=== PATIENT | female | born 1980 | race Caucasian/White ===

== ENCOUNTER 2016-09-02 10:23 | Outpatient (CLI) | payer MEDICAID, OTHER | END 2016-09-02 10:24 | disposition home or self-care (01) | DX: J06.9 Acute upper respiratory infection, unspecified (principal) ==

== ENCOUNTER 2016-10-08 00:19 | Emergency (ER) | payer OTHER ==
[2016-10-08] MEDS ORDERED: HYDROmorphone 1 MG/ML SYRINGE IM STA ×2 (02:07→02:56)
[2016-10-08] MEDS ORDERED: PROMETHAZINE 25 MG/1 ML VIAL IM STA (02:08)
[2016-10-08] MEDS ORDERED: HYDROmorphone 1 MG/ML SYRINGE ONE ×2 (02:10→03:07)
[2016-10-08] MEDS ORDERED: PROMETHAZINE 25 MG/1 ML VIAL ONE (02:10)
[2016-10-08] MEDS ORDERED: KETOROLAC 60 MG/2 ML VIAL IM STA (02:56)
[2016-10-08] MEDS ORDERED: KETOROLAC 60 MG/2 ML VIAL ONE (03:07)
[2016-10-08] MEDS ORDERED: oxyCODONE/ACET 5/325 Prepack 4 PO STA (03:30)
[2016-10-08] MEDS ORDERED: oxyCODONE/ACET 5/325 Prepack 4 PO ONE (03:35)
== END 2016-10-08 03:40 | disposition home or self-care (01) ==
DX: N20.2 Calculus of kidney with calculus of ureter (principal); Z87.442 Personal history of urinary calculi
CPT/HCPCS: 74176; 81001; 96372; 99284; J1170

== ENCOUNTER 2017-02-26 14:52 | Outpatient (CLI) | payer OTHER ==
[2017-02-26 15:45] LABS: BASOPHILS # (AUTO) 0.1 10^3/uL (0.0-0.1); BASOPHILS % (AUTO) 0.7 %; EOSINOPHILS # (AUTO) 0.2 10^3/uL (0.0-0.7); EOSINOPHILS % (AUTO) 2.7 %; HGB - HEMOGLOBIN 13.3 g/dL (12.0-16.0); LYMPHOCYTES # (AUTO) 3.3 10^3/uL (1.5-3.5); LYMPHOCYTES % (AUTO) 45.1 %; MEAN CORPUSCULAR HEMOGLOBIN 28.5 pg (27.0-31.0); MEAN CORPUSCULAR HGB CONC 34.1 g/dL (32.0-36.0); MEAN CORPUSCULAR VOLUME 83.5 fL (81.0-99.0); MONOCYTES # (AUTO) 0.6 10^3/uL (0.0-1.0); MONOCYTES % (AUTO) 7.8 %; NEUTROPHILS # (AUTO) 3.2 10^3/uL (1.5-6.6); NEUTROPHILS % (AUTO) 43.7 %; RED BLOOD COUNT 4.67 10^6/uL (4.20-5.40); RED CELL DISTRIBUTION WIDTH 13.8 % (12.0-15.0); UNCORRECTED WHITE BLOOD COUNT 7.3 x10^3/uL; WHITE BLOOD COUNT 7.3 x10^3/uL (4.8-10.8)
[2017-02-26 15:48] LABS: ALBUMIN/GLOBULIN RATIO 1.1 (1.0-2.2); BILIRUBIN,TOTAL 0.6 mg/dL (0.2-1.0); CALCIUM 8.8 mg/dL (8.5-10.3); CREATININE 0.8 mg/dL (0.4-1.0); TOTAL PROTEIN 7.3 g/dL (6.7-8.2)
--- NOTE | 2017-02-26 17:16 | XRAY Report ---
TWO VIEW CHEST: 02/26/2017 CLINICAL INDICATION: Shortness of breath. COMPARISON: CT of 06/09/2015. FINDINGS: Frontal and lateral views of the chest demonstrate a normal cardiac silhouette. The lungs are clear. No effusion or pneumothorax is present. IMPRESSION: NO EVIDENCE OF ACUTE CARDIOPULMONARY DISEASE. JOB #: [id number] EXT JOB #:[id number]
== END 2017-02-26 14:53 | disposition home or self-care (01) ==
LOC: DI 14:52
PROVIDERS: ATTEND Physician Assistant Medical
DX: R06.02 Shortness of breath (principal)
CPT/HCPCS: 36415; 71020; 80053; 85025; 85379; 85651

== ENCOUNTER 2017-03-04 12:00 | Emergency (ER) | payer OTHER ==
[2017-03-04 13:14] LABS: BILIRUBIN,URINE NEGATIVE (NEGATIVE); UA w/ MICROSCOPIC CHARGE YES; WBC,URINE 0-3 /HPF (0-5)
[2017-03-04 13:15] LABS: UR CULTURE IF IND NOT INDICATED
[2017-03-04] MEDS ORDERED: HYDROmorphone 1 MG/ML SYRINGE IVP STA (15:21)
[2017-03-04] MEDS ORDERED: ONDANSETRON 4 MG/2 ML VIAL IVP STA (15:21)
[2017-03-04] MEDS ORDERED: KETOROLAC 60 MG/2 ML VIAL IVP STA (15:21)
--- NOTE | 2017-03-04 15:23 | ED Physician Documentation ---
PD HPI ABD PAIN - Stated complaint Stated Complaint: L SIDE PX - Chief complaint Chief Complaint: Abd Pain - History obtained from History obtained from: Patient - History of Present Illness Timing - onset: How many hours ago (4) Timing - details: Abrupt onset Pain level max: 10 Pain level now: 8 Quality: Aching, Pain Location: Other (L flank) Improved by: Other (nothing) Worsened by: Other (nothing) Associated symptoms: Nausea. No: Fever, Hematemesis, Diarrhea, Constipation Similar symptoms before: Diagnosis (ureteral stone) Recently seen: Not recently seen Review of Systems Constitutional: denies: Fever, Chills Nose: denies: Rhinorrhea / runny nose, Congestion Throat: denies: Sore throat Cardiac: denies: Chest pain / pressure Respiratory: denies: Cough, Wheezing GI: reports: Nausea Skin: denies: Rash Musculoskeletal: denies: Neck pain, Back pain Neurologic: denies: Headache PD PAST MEDICAL HISTORY - Past Medical History Past Medical History: Yes Cardiovascular: None Respiratory: Sleep apnea Neuro: None Endocrine/Autoimmune: None GI: Other 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 : Kidney stones HEENT: Chronic sinusitis Psych: None Musculoskeletal: None Derm: None - Past Surgical History Past Surgical History: Yes General: Appendectomy, Other - Present Medications Home Medications: Ambulatory Orders Medication Instructions Recorded Confirmed Cetirizine [ZyrTEC] 10 mg PO DAILY 01/12/13 06/11/15 Sertraline [Zoloft] 25 mg PO HS 01/12/13 10/08/16 Multivitamin [Multi-Day Vitamins] 1 each PO DAILY 01/15/15 10/08/16 Omeprazole 20 mg PO DAILY 01/15/15 10/08/16 Ibuprofen [Motrin] 400 mg PO Q6H PRN #20 tablet 06/06/15 06/11/15 Medroxyprogesterone Acetate 150 mg IM 06/06/15 06/11/15 [Depo-Provera] Tamsulosin [Flomax] 0.4 mg PO DAILY #7 capsule 09/14/15 10/08/16 Amitriptyline [Elavil] 25 mg PO DAILY 10/08/16 10/08/16 Gabapentin 100 mg PO DAILY 10/08/16 10/08/16 Meloxicam [Mobic] 7.5 mg PO DAILY 10/08/16 10/08/16 oxyCODONE/ACET 5/325 [Percocet 5 1 - 2 each PO Q6H PRN #20 tablet 10/08/16 mg/325 mg] traMADol [Ultram] 50 mg PO Q4-6H 10/08/16 10/08/16 Ondansetron Odt [Zofran] 4 mg TL Q6H PRN #10 tablet 03/04/17 Oxycodone HCl/Acetaminophen 1 - 2 each PO Q6H PRN #20 tablet 03/04/17 [Percocet 5-325 mg Tablet] - Allergies Allergies/Adverse Reactions: Allergies Allergy/AdvReac Type Severity Reaction Status Date / Time meperidine HCl * AdvReac Unknown family hx Verified 03/04/17 12:14 [From Demerol] of cardiac arrest - Social History Does the pt smoke?: No Smoking Status: Never smoker Does the pt drink ETOH?: No Does the pt have substance abuse?: No - Immunizations Immunizations are current?: Yes - POLST Patient has POLST: No PD ED PE NORMAL - Vitals Vital signs reviewed: Yes - General General: Alert and oriented X 3, No acute distress - HEENT HEENT: Moist mucous membranes - Neck Neck: Supple, no meningeal sign - Cardiac Cardiac: RRR, Strong equal pulses - Respiratory Respiratory: No respiratory distress, Clear bilaterally - Abdomen Abdomen: Soft, Non tender, Non distended - Back Back: No CVA TTP, No spinal TTP - Derm Derm: Warm and dry - Neuro Neuro: Alert and oriented X 3 - Psych Psych: Normal mood, Normal affect Results - Vitals Vitals: Vital Signs - 24 hr 03/04/17 03/04/17 03/04/17 12:11 14:23 15:32 Temperature 36 C L Heart Rate 90 84 88 Respiratory 14 18 16 Rate Blood Pressure 149/98 H 156/106 H 155/93 H O2 Saturation 100 100 99 Oxygen O2 Source Room air - Labs Labs: Laboratory Tests 03/04/17 03/04/17 03/04/17 12:20 15:20 15:20 WBC 9.7 RBC 5.05 Hgb 14.6 Hct 42.9 MCV 85.0 MCH 28.9 MCHC 34.0 RDW 13.8 Plt Count 216 MPV 9.4 Neut # 6.3 Lymph # 2.7 [place] # 0.5 Eos # 0.1 Baso # 0.0 Absolute Nucleated RBC 0.01 Nucleated RBCs 0.1 Sodium 136 Potassium 4.4 Chloride 104 Carbon Dioxide 22 Anion Gap 10.0 BUN 14 Creatinine 0.9 Estimated GFR (MDRD) 70 L Glucose 98 Calcium 9.2 Total Bilirubin 0.3 AST 22 ALT 21 Alkaline Phosphatase 94 Total Protein 7.9 Albumin 4.0 Globulin 3.9 Albumin/Globulin Ratio 1.0 Lipase 29 Urine Color RED/BLOODY Urine Clarity SL. CLOUDY Urine pH 6.0 Ur Specific [place] >=1.030 H Urine Protein 100 H Urine Glucose (UA) NEGATIVE Urine Ketones NEGATIVE Urine Occult Blood LARGE H Urine Nitrite NEGATIVE Urine Bilirubin NEGATIVE Urine Urobilinogen 0.2 (NORMAL) Ur Leukocyte Esterase NEGATIVE Urine RBC TNTC H Urine WBC 0-3 Ur Squamous Epith Cells MOD Squamous H Urine Bacteria Few Urine Casts 0-2 Hyaline Casts Urine Mucus Moderate Strands Ur Microscopic Review INDICATED Urine Culture Comments NOT INDICATED PD MEDICAL DECISION MAKING - ED course Complexity details: reviewed old records, reviewed results, re-evaluated patient , considered differential, d/w patient ED course: Patient is a 36-year-old female who presents to the emergency department with left flank pain consistent with her prior history of renal stones. Had a CT scan approximately 6 months ago revealing renal stones. None were large enough to require lithotripsy. As this is a known diagnosis for her and her pain resolved as expected with pain medications in the emergency department. We will trial her on pain medication for home and see how she progresses over the next 2-3 days. If she does not improve as expected, she will return. Patient counseled regarding signs and symptoms for which I believe and urgent re- evaluation would be necessary. Patient with good understanding of and agreement to plan and is comfortable going home at this time This document was made in part using voice recognition software. While efforts are made to proofread this document, sound alike and grammatical errors may occur. Departure - Departure Disposition: 01 Home, Self Care Clinical Impression: Ureteral stone Condition: Good Instructions: ED Stone Renal W Colic Follow-Up: Tarsha Cisneros PA-C [Primary Care Provider] - Within 1 week Prescriptions: Oxycodone HCl/Acetaminophen [Percocet 5-325 mg Tablet] 1 - 2 each PO Q6H PRN # 20 tablet PRN Reason: pain Ondansetron Odt [Zofran] 4 mg TL Q6H PRN #10 tablet PRN Reason: Nausea / Vomiting Comments: Drink plenty of fluids. Return if you worsen. Do not drink alcohol or drive while on narcotic pain medicine. Note that many narcotic pain relievers also contain tylenol/acetaminophen. Please ensure that your total dose of acetaminophen from all sources does not exceed 3 grams (3000mg) per day. You may constipated on this medication, take a stool softener such as "Colace" twice a day while you are on it. Also recommend a [id number] laxative such as senna or MiraLAX any day that you do not have a bowel movement. If you received narcotic pain medication in the emergency department, do not drive or operate machinery for the next 24 hours. Discharge Date/Time: 03/04/17 16:19
[2017-03-04] MEDS ORDERED: KETOROLAC 30 MG/ML VIAL ONE (15:24)
[2017-03-04] MEDS ORDERED: ONDANSETRON 4 MG/2 ML VIAL ONE (15:25)
[2017-03-04] MEDS ORDERED: HYDROmorphone 1 MG/ML SYRINGE ONE (15:25)
[2017-03-04 15:34] VITALS: BP 155/93
[2017-03-04 15:38] LABS: BASOPHILS % (AUTO) 0.4 %; EOSINOPHILS # (AUTO) 0.1 10^3/uL (0.0-0.7); EOSINOPHILS % (AUTO) 0.9 %; HCT - HEMATOCRIT 42.9 % (37.0-47.0); HGB - HEMOGLOBIN 14.6 g/dL (12.0-16.0); LYMPHOCYTES # (AUTO) 2.7 10^3/uL (1.5-3.5); LYMPHOCYTES % (AUTO) 27.6 %; MEAN CORPUSCULAR HEMOGLOBIN 28.9 pg (27.0-31.0); MEAN PLATELET VOLUME 9.4 fL (7.9-10.8); MONOCYTES # (AUTO) 0.5 10^3/uL (0.0-1.0); MONOCYTES % (AUTO) 5.6 %; NEUTROPHILS # (AUTO) 6.3 10^3/uL (1.5-6.6); NEUTROPHILS % (AUTO) 65.5 %; NUCLEATED RED BLOOD CELLS AUTO 0.1 /100WBC; RED BLOOD COUNT 5.05 10^6/uL (4.20-5.40); RED CELL DISTRIBUTION WIDTH 13.8 % (12.0-15.0); UNCORRECTED WHITE BLOOD COUNT 9.7 x10^3/uL; WHITE BLOOD COUNT 9.7 x10^3/uL (4.8-10.8)
[2017-03-04 15:55] LABS: BILIRUBIN,TOTAL 0.3 mg/dL (0.2-1.0); CALCIUM 9.2 mg/dL (8.5-10.3); CREATININE 0.9 mg/dL (0.4-1.0); POTASSIUM 4.4 mmol/L (3.5-5.0); TOTAL PROTEIN 7.9 g/dL (6.7-8.2)
== END 2017-03-04 16:19 | disposition home or self-care (01) ==
LOC: ED 12:00
DX: N20.2 Calculus of kidney with calculus of ureter (principal); Z87.442 Personal history of urinary calculi; G47.30 Sleep apnea, unspecified
CPT/HCPCS: 36415; 80053; 81001; 83690; 85025; 96374; 96375; 99284; J1170; 81003; 87086

== ENCOUNTER 2017-03-21 20:26 | Emergency (ER) | payer OTHER ==
--- NOTE | 2017-03-21 22:15 | ED Physician Documentation ---
PD HPI ABD PAIN - Stated complaint Stated Complaint: LT SIDE FLANK PX - Chief complaint Chief Complaint: Abd Pain - History obtained from History obtained from: Patient - History of Present Illness Pain level max: 9 Pain level now: 9 Quality: Aching, Sharp Location: LLQ Radiation: Other (Left flank to the left lower quadrant) Improved by: Meds (Percocet has helped in the past) Worsened by: Other (Slightly worse with movement and palpation) Associated symptoms: Dysuria. No: Fever, Nausea, Vomiting, Hematemesis, Diarrhea, Constipation, Melena, Hematochezia, Hematuria, Chest pain, Dizzy, Near syncope / syncope, Loss of appetite, Weight loss, Vaginal bleeding, Vaginal dc Similar symptoms before: Diagnosis (kidney stones) Recently seen: Emergency Dept (3 weeks ago, but states that that pain did resolve and this is different.) - Additional information Additional information: states was recently on amoxicillin for renal stone? States L flank pain today. Worse with urination. 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 : Kidney stones HEENT: Chronic sinusitis Psych: None Musculoskeletal: None Derm: None - Past Surgical History Past Surgical History: Yes General: Appendectomy, Other - Present Medications Home Medications: Ambulatory Orders Medication Instructions Recorded Confirmed Cetirizine [ZyrTEC] 10 mg PO DAILY 01/12/13 06/11/15 Sertraline [Zoloft] 25 mg PO HS 01/12/13 10/08/16 Multivitamin [Multi-Day Vitamins] 1 each PO DAILY 01/15/15 10/08/16 Omeprazole 20 mg PO DAILY 01/15/15 10/08/16 Ibuprofen [Motrin] 400 mg PO Q6H PRN #20 tablet 06/06/15 06/11/15 Medroxyprogesterone Acetate 150 mg IM 06/06/15 06/11/15 [Depo-Provera] Tamsulosin [Flomax] 0.4 mg PO DAILY #7 capsule 09/14/15 10/08/16 Amitriptyline [Elavil] 25 mg PO DAILY 10/08/16 10/08/16 Gabapentin 100 mg PO DAILY 10/08/16 10/08/16 Meloxicam [Mobic] 7.5 mg PO DAILY 10/08/16 10/08/16 oxyCODONE/ACET 5/325 [Percocet 5 1 - 2 each PO Q6H PRN #20 tablet 10/08/16 mg/325 mg] traMADol [Ultram] 50 mg PO Q4-6H 10/08/16 10/08/16 Ondansetron Odt [Zofran] 4 mg TL Q6H PRN #10 tablet 03/04/17 Oxycodone HCl/Acetaminophen 1 - 2 each PO Q6H PRN #20 tablet 03/04/17 [Percocet 5-325 mg Tablet] Ondansetron Odt [Zofran] 4 mg TL Q6H PRN #10 tablet 03/21/17 Oxycodone HCl/Acetaminophen 1 - 2 each PO Q6H PRN #20 tablet 03/21/17 [Percocet 5-325 mg Tablet] - Allergies Allergies/Adverse Reactions: Allergies Allergy/AdvReac Type Severity Reaction Status Date / Time meperidine HCl * AdvReac Unknown family hx Verified 03/21/17 20:41 [From [facility]] of cardiac arrest - Social History Does the pt smoke?: No Smoking Status: Never smoker Does the pt drink ETOH?: No Does the pt have substance abuse?: No - Immunizations Immunizations are current?: Yes - POLST Patient has POLST: No PD ED PE NORMAL - Vitals Vital signs reviewed: Yes - General General: Alert and oriented X 3, No acute distress, Well developed/nourished - HEENT HEENT: Moist mucous membranes - Neck Neck: Supple, no meningeal sign - Cardiac Cardiac: RRR, Strong equal pulses - Respiratory Respiratory: No respiratory distress, Clear bilaterally - Abdomen Abdomen: Soft, Non tender, Non distended - Back Back: No CVA TTP, No spinal TTP - Derm Derm: Warm and dry - Neuro Neuro: Alert and oriented X 3 - Psych Psych: Normal mood, Normal affect Results - Vitals Vitals: Vital Signs - 24 hr 03/21/17 03/21/17 03/22/17 20:36 23:14 01:02 Temperature 37 C 36.8 C Heart Rate 83 83 89 Respiratory 14 14 16 Rate Blood Pressure 170/98 H 142/81 H 140/80 H O2 Saturation 100 100 96 Oxygen O2 Source Room air - Labs Labs: Laboratory Tests 03/21/17 03/21/17 03/21/17 22:00 22:53 22:53 WBC 9.3 RBC 4.96 Hgb 14.2 Hct 42.4 MCV 85.5 MCH 28.6 MCHC 33.5 RDW 13.7 Plt Count 218 MPV 8.9 Neut # 5.0 Lymph # 3.4 Miller # 0.6 Eos # 0.2 Baso # 0.1 Absolute Nucleated RBC 0.01 Nucleated RBCs 0.1 Sodium 137 Potassium 4.3 Chloride 105 Carbon Dioxide 23 Anion Gap 9.0 BUN 13 Creatinine 0.8 Estimated GFR (MDRD) 81 L Glucose 99 Calcium 9.2 Total Bilirubin 0.3 AST 21 ALT 20 Alkaline Phosphatase 89 Total Protein 8.1 Albumin 4.1 Globulin 4.0 Albumin/Globulin Ratio 1.0 Lipase 31 Urine Color YELLOW Urine Clarity HAZY Urine pH 5.5 Ur Specific [place] >=1.030 H Urine Protein NEGATIVE Urine Glucose (UA) NEGATIVE Urine Ketones NEGATIVE Urine Occult Blood LARGE H Urine Nitrite NEGATIVE Urine Bilirubin NEGATIVE Urine Urobilinogen 0.2 (NORMAL) Ur Leukocyte Esterase NEGATIVE Urine RBC 11-25 H Urine WBC 4-5 Ur Squamous Epith Cells NONE SEEN Urine Bacteria None Seen Ur Microscopic Review INDICATED Urine Culture Comments NOT INDICATED Urine HCG, Qual NEGATIVE - Rads (name of study) CT abdomen and pelvis Radiology: Prelim report reviewed, EMP read contemporaneously, See rad report ( [id number] left hydroureteronephrosis due to 2 obstructing stones within the distal ureter. Larger stone measures up to 6 mm near the UVJ. Adjacent smaller stone measuring 4.6 mm. 2. There are several punctate nonobstructing stones within the right kidney. At least one nonobstructing stone within the left upper kidney. 3. No bowel obstruction. 4. Difficult to characterize 3.8 cm abnormality within the right adnexa. Characterization of this is difficult due to patient body habitus. A similar finding can be seen on the prior examination measuring 3.1 cm. Follow-up pelvic ultrasound recommended at 6 weeks. ) PD MEDICAL DECISION MAKING - ED course Complexity details: reviewed results, re-evaluated patient, considered differential, d/w patient ED course: Patient is a 36-year-old female who presents to the emergency department with left flank pain. She is found to have 2 obstructing stones in the distal ureter , the largest stone is up to 6 mm and an adjacent smaller stone at 4.6 mm. She was also informed of the 3.8 cm abnormality within the right adnexa and the need for follow-up with ultrasound. She is well-appearing, nontoxic. Afebrile. No evidence of UTI. Pain well controlled. Patient counseled regarding signs and symptoms for which I believe and urgent re-evaluation would be necessary. Patient with good understanding of and agreement to plan and is comfortable going home at this time This document was made in part using voice recognition software. While efforts are made to proofread this document, sound alike and grammatical errors may occur. Departure - Departure Disposition: 01 Home, Self Care Clinical Impression: Ureteral stone Condition: Good Instructions: ED Stone Renal W Colic Follow-Up: Tarsha Cisneros PA-C [Primary Care Provider] - Within 1 week Prescriptions: Oxycodone HCl/Acetaminophen [Percocet 5-325 mg Tablet] 1 - 2 each PO Q6H PRN # 20 tablet PRN Reason: pain Ondansetron Odt [Zofran] 4 mg TL Q6H PRN #10 tablet PRN Reason: Nausea / Vomiting Comments: Return if you worsen. This should improve over the next few days. Make sure to follow up with your doctor for further care. You have a 4 and 6mm stone on the L side. You should also have a ultrasound of the right adnexa in 6 weeks as there does appear to be an abnormality on her CT scan, unclear etiology. This can be done with your doctor Discharge Date/Time: 03/22/17 01:31
[2017-03-21] MEDS ORDERED: ONDANSETRON 4 MG/2 ML VIAL IVP STA (22:32)
[2017-03-21] MEDS ORDERED: HYDROmorphone 1 MG/ML SYRINGE IVP STA (22:32)
[2017-03-21] MEDS ORDERED: KETOROLAC 60 MG/2 ML VIAL IVP STA (22:32)
[2017-03-21] MEDS ORDERED: SODIUM CHLORIDE 0.9% 1,000 ML IV ONE (22:33)
[2017-03-21 22:35] LABS: BILIRUBIN,URINE NEGATIVE (NEGATIVE); PH,URINE 5.5 PH (5.0-7.5)
[2017-03-21 22:41] LABS: UA w/ MICROSCOPIC CHARGE YES
[2017-03-21 22:42] LABS: HCG UR QUAL NEGATIVE
[2017-03-21 22:51] LABS: UR CULTURE IF IND NOT INDICATED
[2017-03-21] MEDS ORDERED: ONDANSETRON 4 MG/2 ML VIAL ONE (22:56)
[2017-03-21] MEDS ORDERED: KETOROLAC 30 MG/ML VIAL ONE (22:56)
[2017-03-21] MEDS ORDERED: HYDROmorphone 1 MG/ML SYRINGE ONE (22:56)
[2017-03-21 23:02] LABS: BASOPHILS # (AUTO) 0.1 10^3/uL (0.0-0.1); BASOPHILS % (AUTO) 0.8 %; EOSINOPHILS # (AUTO) 0.2 10^3/uL (0.0-0.7); EOSINOPHILS % (AUTO) 2.4 %; HCT - HEMATOCRIT 42.4 % (37.0-47.0); HGB - HEMOGLOBIN 14.2 g/dL (12.0-16.0); LYMPHOCYTES # (AUTO) 3.4 10^3/uL (1.5-3.5); LYMPHOCYTES % (AUTO) 36.8 %; MEAN CORPUSCULAR HEMOGLOBIN 28.6 pg (27.0-31.0); MEAN CORPUSCULAR HGB CONC 33.5 g/dL (32.0-36.0); MEAN CORPUSCULAR VOLUME 85.5 fL (81.0-99.0); MEAN PLATELET VOLUME 8.9 fL (7.9-10.8); MONOCYTES # (AUTO) 0.6 10^3/uL (0.0-1.0); NUCLEATED RED BLOOD CELLS AUTO 0.1 /100WBC; RED BLOOD COUNT 4.96 10^6/uL (4.20-5.40); RED CELL DISTRIBUTION WIDTH 13.7 % (12.0-15.0); UNCORRECTED WHITE BLOOD COUNT 9.3 x10^3/uL; WHITE BLOOD COUNT 9.3 x10^3/uL (4.8-10.8)
[2017-03-21 23:17] LABS: BILIRUBIN,TOTAL 0.3 mg/dL (0.2-1.0); CALCIUM 9.2 mg/dL (8.5-10.3); CREATININE 0.8 mg/dL (0.4-1.0); POTASSIUM 4.3 mmol/L (3.5-5.0); TOTAL PROTEIN 8.1 g/dL (6.7-8.2)
--- NOTE | 2017-03-21 23:43 | CT Report ---
EXAM: CT ABDOMEN AND PELVIS (CT KUB) EXAM DATE: 03/21/2017 11:03 PM. CLINICAL HISTORY: Left flank pain, history of kidney stones. COMPARISONS: 10/08/2016 TECHNIQUE: Routine axial helical CT imaging was performed through the abdomen and pelvis without IV c ontrast. Reconstructions: Coronal and sagittal. In accordance with CT protocol optimization, one or more of the following dose reduction techniques w ere utilized for this exam: automated exposure control, adjustment of mA and/or KV based on patient s ize, or use of iterative reconstructive technique. FINDINGS: Kidneys and ureters: Bilateral kidney stones are present, punctate in size. There is [id number] left hydroureteronephrosis due to an obstructing 4.6 mm stone within the distal ureter near the UVJ. Additional stone measuring 6 minute image within the distal ureter at the UVJ. No right-sided hydron ephrosis. No contour deforming renal mass within the confines of a noncontrast exam. Abdominal Solid Organs: Abdominal parenchymal organs are without significant abnormality within the c onfines of a noncontrast exam. Bowel: Evidence of prior gastric surgery. No bowel obstruction. Appendix: Could not be visualized. Lymph Nodes: No definite pathologic lymphadenopathy. Fluid: No significant ascites. Vasculature: Normal caliber aorta. Pelvis: Body habitus reduces sensitivity and specificity and compromises assessment of the pelvis. Th ere is a right adnexal lesion measuring 3.8 cm (image 147 series 3), difficult to characterize on thi s exam. Small uterus. Bones: No definite suspicious bony lesions demonstrated. Multilevel degenerative change within the sp ine. Lower Chest: No significant lung base consolidation or effusion. IMPRESSION: 1. [id number] left hydroureteronephrosis due to 2 obstructing stones within the distal ureter. Larger stone measures up to 6 mm near the UVJ. Adjacent smaller stone measuring 4.6 mm. 2. There are several punctate nonobstructing stones within the right kidney. At least one nonobstruct ing stone within the left upper kidney. 3. No bowel obstruction. 4. Difficult to characterize 3.8 cm abnormality within the right adnexa. Characterization of this is difficult due to patient body habitus. A similar finding can be seen on the prior examination measuri ng 3.1 cm. Follow-up pelvic ultrasound recommended at 6 weeks. [facility] Referring Provider Line: [phone] SITE ID: [id number]
[2017-03-22] MEDS ORDERED: HYDROmorphone 1 MG/ML SYRINGE IVP STA (00:02)
[2017-03-22] MEDS ORDERED: HYDROmorphone 1 MG/ML SYRINGE ONE (00:39)
[2017-03-22 01:03] VITALS: BP 140/80
== END 2017-03-22 01:31 | disposition home or self-care (01) ==
LOC: ED 20:26
DX: N13.2 Hydronephrosis with renal and ureteral calculous obstruction (principal); G47.30 Sleep apnea, unspecified
CPT/HCPCS: 36415; 74176; 80053; 81001; 81025; 83690; 85025; 96374; 96375; 96376; 99283; 99284; J1170; 81003; 87086

== ENCOUNTER 2017-06-09 05:53 | Emergency (ER) | payer OTHER ==
[2017-06-09] MEDS ORDERED: KETOROLAC 30 MG/ML VIAL ONE (06:19)
[2017-06-09] MEDS ORDERED: HYDROmorphone 1 MG/ML SYRINGE ONE (06:19)
[2017-06-09 06:27] LABS: BILIRUBIN,URINE NEGATIVE (NEGATIVE)
[2017-06-09 06:28] LABS: UA w/ MICROSCOPIC CHARGE YES
[2017-06-09] MEDS: KETOROLAC 60 MG/2 ML VIAL IVP STA (06:28)
[2017-06-09] MEDS: SODIUM CHLORIDE 0.9% 1,000 ML IV ONE (06:29)
[2017-06-09] MEDS: HYDROmorphone 0.5 MG/0.5 ML SYRINGE IVP SCH (06:29)
--- NOTE | 2017-06-09 06:31 | ED Physician Documentation ---
PD HPI ABD PAIN - Stated complaint Stated Complaint: RT FLANK PAIN - Chief complaint Chief Complaint: Abd Pain - History obtained from History obtained from: Patient - History of Present Illness Timing - onset: How many minutes ago (30) Timing - details: Abrupt onset Quality: Sharp Location: Other (Right flank) Associated symptoms: Nausea. No: Fever, Vomiting, Dysuria Similar symptoms before: Diagnosis (kidney stones) - Additional information Additional information: The patient is a 36-year-old female with history of kidney stones, who presents with right flank pain that started suddenly about one half hour prior to arrival. She reports associated nausea. She denies vomiting, fever, or dysuria. Her last kidney stone was diagnosed about 2 months ago, and was on the left side. She has undergone lithotripsy in the past. Review of Systems Constitutional: denies: Fever Nose: denies: Congestion Cardiac: denies: Chest pain / pressure Respiratory: denies: Dyspnea, Cough GI: reports: Abdominal Pain, Nausea. 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 : Kidney stones HEENT: Chronic sinusitis Psych: None Musculoskeletal: None Derm: None - Past Surgical History Past Surgical History: Yes General: Appendectomy, Other - Present Medications Home Medications: Ambulatory Orders Medication Instructions Recorded Confirmed Sertraline [Zoloft] 25 mg PO HS 01/12/13 06/09/17 Multivitamin [Multi-Day Vitamins] 1 each PO DAILY 01/15/15 06/09/17 Amitriptyline [Elavil] 25 mg PO DAILY 10/08/16 06/09/17 Meloxicam [Mobic] 7.5 mg PO DAILY 10/08/16 06/09/17 traMADol [Ultram] 50 mg PO Q4-6H 10/08/16 06/09/17 Cyclobenzaprine [Flexeril] 10 mg PO TID PRN 06/09/17 06/09/17 oxyCODONE/ACET 5/325 [Percocet 5 1 - 2 tab PO Q4-6H PRN #15 tablet 06/09/17 mg/325 mg] - Allergies Allergies/Adverse Reactions: Allergies Allergy/AdvReac Type Severity Reaction Status Date / Time meperidine HCl * AdvReac Unknown family hx Verified 03/21/17 20:41 [From Demerol] of cardiac arrest - Social History Does the pt smoke?: No Smoking Status: Never smoker Does the pt drink ETOH?: No Does the pt have substance abuse?: No - Immunizations Immunizations are current?: Yes - POLST Patient has POLST: No PD ED PE NORMAL - Vitals Vital signs reviewed: Yes (Hypertensive and tachycardic.) - General General: Alert and oriented X 3, Other (Morbidly obese.) - HEENT HEENT: Atraumatic - Cardiac Cardiac: RRR - Respiratory Respiratory: No respiratory distress, Clear bilaterally - Abdomen Abdomen: Soft, Non tender - Back Back: Other (Right CVA tenderness to percussion.) - Derm Derm: No rash - Extremities Extremities: No edema - Neuro Neuro: Alert and oriented X 3, No motor deficit, Normal speech Results - Vitals Vitals: Vital Signs - 24 hr 06/09/17 06/09/17 06:01 07:29 Temperature 36.1 C L 36.7 C Heart Rate 111 H 81 Respiratory 20 16 Rate Blood Pressure 157/104 H 127/68 O2 Saturation 100 97 Oxygen O2 Source Room air - Labs Labs: Laboratory Tests 06/09/17 06:06 Urine Color YELLOW Urine Clarity CLEAR Urine pH 6.0 Ur Specific [place] >=1.030 H Urine Protein NEGATIVE Urine Glucose (UA) NEGATIVE Urine Ketones NEGATIVE Urine Occult Blood LARGE H Urine Nitrite NEGATIVE Urine Bilirubin NEGATIVE Urine Urobilinogen 0.2 (NORMAL) Ur Leukocyte Esterase NEGATIVE Urine RBC 6-10 H Urine WBC 0-3 Ur Squamous Epith Cells MANY Squamous H Urine Crystals 0-2 Calcium Oxalate Urine Bacteria None Seen Urine Mucus Few Strands Ur Microscopic Review INDICATED - Rads (name of study) CT abd/pelvis w/o Radiology: Prelim report reviewed, EMP read contemporaneously, See rad report ( 1. Approximately 2 mm urinary bladder stone, may be recently passed from the right renal collecting system given history. No current ureteral stone or hydronephrosis. 2. Small bilateral nonobstructing renal stones. 3. Post gastric bypass. 4. 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 ) PD MEDICAL DECISION MAKING - ED course Complexity details: reviewed old records, reviewed results, re-evaluated patient , considered differential, d/w patient ED course: The patient's presentation is most consistent with renal colic. CT scan of the abdomen and pelvis reveals a 2 mm stone within the bladder, presumably having passed from the ureter just prior to scan being performed. Her presentation does not suggest pyelonephritis nor pancreatitis. Treatment in the emergency department included administration of normal saline IV, ketorolac 30 mg IV, and hydromorphone 1 mg IV. With the above treatment her symptoms resolved. She is being discharged with a prescription for Percocet, 15 tablets. I discussed with her the results of the CT scan, symptomatic treatment and outpatient follow -up, as well as potentially worrisome signs or symptoms that should prompt reevaluation in the emergency department. Departure - Departure Disposition: 01 Home, Self Care Clinical Impression: Renal colic Condition: Stable Instructions: ED Stone Renal W Colic Follow-Up: Tarsha Cisneros PA-C [Primary Care Provider] - Prescriptions: oxyCODONE/ACET 5/325 [Percocet 5 mg/325 mg] 1 - 2 tab PO Q4-6H PRN #15 tablet PRN Reason: Pain Comments: Drink plenty of fluids. You can use ibuprofen, up to 800 mg 3 times daily. You can use Percocet as prescribed if needed for pain. Follow up with your primary physician within 2 weeks. Call to schedule appointment. Return to the emergency department if you develop increasing pain, persistent vomiting, fever, or otherwise worsening symptoms. Forms: Activity restrictions Discharge Date/Time: 06/09/17 07:45
[2017-06-09 06:47] LABS: WBC,URINE 0-3 /HPF (0-5)
--- NOTE | 2017-06-09 07:01 | CT Report ---
EXAM: CT ABDOMEN AND PELVIS (CT KUB) EXAM DATE: 06/09/2017 06:45 AM. CLINICAL HISTORY: Right flank pain; history of kidney stones. COMPARISONS: 03/21/2017, 03/02/2013. TECHNIQUE: Routine axial helical CT imaging was performed through the abdomen and pelvis without IV c ontrast. Reconstructions: Coronal and sagittal. In accordance with CT protocol optimization, one or more of the following dose reduction techniques w ere utilized for this exam: automated exposure control, adjustment of mA and/or KV based on patient s ize, or use of iterative reconstructive technique. FINDINGS: Lung Bases: Unremarkable. Right Kidney/Ureter: Several tiny nonenhancing stones measuring up to 3 mm. No ureteral stone or hydr onephrosis currently. Left Kidney/Ureter: Couple of tiny nonobstructing stones measuring up to 2 mm. No ureteral stone or h ydronephrosis currently. Other Solid Organs: Noncontrast images of the solid organs are grossly unremarkable. Gallbladder/Bile Ducts: Unremarkable. Peritoneal Cavity: No free fluid, free air or cathie adenopathy. Bowel is grossly unremarkable with ex ception of moderate stool burden and previous gastric bypass. Pelvic Organs: Poorly evaluated due to motion body habitus but there appears to be a 2 mm midline uri nary bladder stone. No gross suspicious adnexal masses seen. Stable probable fat density 3 cm right o varian nodule, probably a dermoid. Vasculature: Unremarkable. Other: None. IMPRESSION: 1. Approximately 2 mm urinary bladder stone may be recently passed from the right renal collecting sy stem given history. No current ureteral stone or hydronephrosis. 2. Small bilateral nonobstructing renal stones. 3. Post-gastric bypass. 4. 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 5. Otherwise grossly unremarkable non-IV contrast study, additionally suboptimal due to noise from dez dy habitus. [facility] Referring Provider Line: [phone] SITE ID: [id number]
[2017-06-09 07:30] VITALS: BP 127/68
== END 2017-06-09 07:45 | disposition home or self-care (01) ==
LOC: ED 05:53
DX: N23 Unspecified renal colic (principal); Z87.442 Personal history of urinary calculi
CPT/HCPCS: 74176; 81001; 81003; 96374; 96375; 99284

== ENCOUNTER 2017-07-28 16:37 | Outpatient (CLI) | payer OTHER ==
[2017-07-28 17:06] LABS: BILIRUBIN,URINE NEGATIVE (NEGATIVE)
[2017-07-28 17:13] LABS: UR CULTURE IF IND NOT INDICATED
--- NOTE | 2017-07-29 13:21 | XRAY Report ---
EXAM: LEFT KNEE RADIOGRAPHY EXAM DATE: 07/28/2017 05:19 PM. CLINICAL HISTORY: PAIN IN LEFT KNEE. COMPARISON: Radiographs 05/04/2014. TECHNIQUE: 3 views. FINDINGS: Bones: Normal. No fractures or bone lesions. Joints: No joint effusion. Medial compartment joint space narrowing. Moderate tricompartmental osteop hyte formation. These changes are progressed from the previous exam. Soft Tissues: Unremarkable. IMPRESSION: 1. Mild to moderate tricompartmental osteoarthritis demonstrating progression from the previous study , most pronounced at the medial compartment. [facility] Referring Provider Line: [phone] SITE ID: [id number]
== END 2017-07-28 16:38 | disposition home or self-care (01) ==
LOC: LAB 16:37
PROVIDERS: ATTEND Physician Assistant Medical
DX: M25.562 Pain in left knee (principal); R30.0 Dysuria; M17.12 Unilateral primary osteoarthritis, left knee
CPT/HCPCS: 81001; 87086

== ENCOUNTER 2017-10-15 09:02 | Outpatient (CLI) | payer OTHER ==
--- NOTE | 2017-10-15 11:48 | XRAY Report ---
SINGLE CONTRAST UPPER GI: 10/15/2017 CLINICAL INDICATION: Nausea, vomiting, history of gastric sleeve procedure. FINDINGS: Due to patient size and table weight limitations, only an upright single contrast examination could be performed. The patient ingested Gastrografin, followed by thin barium. There is no evidence of a leak. The stomach does demonstrate an unusual configuration, likely postsurgical in nature. There is persistent narrowing at the level of the pylorus, limiting passage of fluid through the stomach and into the duodenum. Once in the duodenum, contrast passes freely through the duodenum and into more distal small bowel loops. IMPRESSION: NO EVIDENCE OF CONTRAST EXTRAVASATION. PERSISTENT NARROWING AT THE LEVEL OF THE PYLORUS, LIMITING THE PASSAGE OF FLUID FROM THE STOMACH INTO THE DUODENUM. FLUOROSCOPY TIME: 2 MINUTES 38 SECONDS; 26 SPOT IMAGES OBTAINED. TD: 10/15/2017 11:47
== END 2017-10-15 09:03 | disposition home or self-care (01) ==
LOC: DI 09:02
PROVIDERS: ATTEND Physician Assistant Medical
DX: R11.2 Nausea with vomiting, unspecified (principal)
CPT/HCPCS: 74247

== ENCOUNTER 2017-11-13 21:23 | Emergency (ER) | payer OTHER ==
[2017-11-13 21:28] VITALS: BP 145/98
[2017-11-13] MEDS ORDERED: ONDANSETRON 4 MG/2 ML VIAL IVP STA (21:42)
[2017-11-13] MEDS ORDERED: HYDROmorphone 1 MG/ML CARPUJECT IVP STA ×2 (21:42→22:16)
[2017-11-13] MEDS ORDERED: SODIUM CHLORIDE 0.9% 1,000 ML IV ONE (21:42)
[2017-11-13] MEDS ORDERED: KETOROLAC 60 MG/2 ML VIAL IVP STA (21:42)
--- NOTE | 2017-11-13 21:45 | ED Physician Documentation ---
PD HPI ABD PAIN - Stated complaint Stated Complaint: SIDE PX - Chief complaint Chief Complaint: Abd Pain - History obtained from History obtained from: Patient - History of Present Illness Timing - onset: Other (She is a history of recurrent renal colic, last CT from here reviewed, it was in May of last year, she had several nonobstructing stones on either side, the largest being 3 mm on the right. She developed sudden onset right flank pain that is severe about 40 minutes ago without hematuria, dysuria, or fevers. She is nauseous but has not vomited. It is similar in reminiscent of prior renal colic.) Review of Systems Constitutional: denies: Fever, Chills GI: reports: Abdominal Pain, Nausea. 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 : Kidney stones HEENT: Chronic sinusitis Psych: None Musculoskeletal: None Derm: None - Past Surgical History Past Surgical History: Yes General: Appendectomy, Other /INTERNET SALES REPRESENTATIVE: Other - Present Medications Home Medications: Ambulatory Orders Medication Instructions Recorded Confirmed Sertraline [Zoloft] 25 mg PO HS 01/12/13 06/09/17 Multivitamin [Multi-Day Vitamins] 1 each PO DAILY 01/15/15 06/09/17 Amitriptyline [Elavil] 25 mg PO DAILY 10/08/16 06/09/17 Meloxicam [Mobic] 7.5 mg PO DAILY 10/08/16 06/09/17 traMADol [Ultram] 50 mg PO Q4-6H 10/08/16 06/09/17 Cyclobenzaprine [Flexeril] 10 mg PO TID PRN 06/09/17 06/09/17 oxyCODONE/ACET 5/325 [Percocet 5 1 - 2 tab PO Q4-6H PRN #15 tablet 06/09/17 mg/325 mg] Ciprofloxacin HCl [Cipro] 500 mg PO BID #14 tablet 11/13/17 Ondansetron HCl [Zofran] 4 mg PO Q6H PRN #10 tablet 11/13/17 Oxycodone HCl/Acetaminophen 1 - 2 tab PO Q4H PRN #15 tablet 11/13/17 [Percocet 5-325 mg Tablet] - Allergies Allergies/Adverse Reactions: Allergies Allergy/AdvReac Type Severity Reaction Status Date / Time meperidine HCl * AdvReac Unknown family hx Verified 03/21/17 20:41 [From Demerol] of cardiac arrest - Social History Does the pt smoke?: No Smoking Status: Never smoker Does the pt drink ETOH?: No Does the pt have substance abuse?: No - Immunizations Immunizations are current?: Yes - POLST Patient has POLST: No PD ED PE NORMAL - Vitals Vital signs reviewed: Yes - General General: Alert and oriented X 3, Other (uncomfortable) - Abdomen Abdomen: Soft, Non tender - Back Back: No CVA TTP - Neuro Neuro: Alert and oriented X 3, Normal speech - Psych Psych: Normal mood, Normal affect Results - Vitals Vitals: Vital Signs - 24 hr 11/13/17 21:25 Temperature 36.0 C L Heart Rate 98 Respiratory 18 Rate Blood Pressure 145/98 H O2 Saturation 100 Oxygen O2 Source Room air - Labs Labs: Laboratory Tests 11/13/17 11/13/17 11/13/17 21:37 21:55 21:55 WBC 9.9 RBC 4.81 Hgb 13.5 Hct 40.4 MCV 84.1 MCH 28.1 MCHC 33.5 RDW 14.0 Plt Count 228 MPV 8.4 Neut # 5.7 Lymph # 3.3 [place] # 0.8 Eos # 0.1 Baso # 0.1 Absolute Nucleated RBC 0.01 Nucleated RBC % 0.1 Sodium 138 Potassium 3.3 L Chloride 108 Carbon Dioxide 22 Anion Gap 8.0 BUN 16 Creatinine 0.8 Estimated GFR (MDRD) 81 L Glucose 90 Calcium 8.8 Total Bilirubin 0.3 AST 15 ALT 19 Alkaline Phosphatase 82 Total Protein 7.5 Albumin 3.8 Globulin 3.7 Albumin/Globulin Ratio 1.0 Lipase 23 Urine Color YELLOW Urine Clarity SL. CLOUDY Urine pH 5.5 Ur Specific [place] >=1.030 H Urine Protein 30 H Urine Glucose (UA) NEGATIVE Urine Ketones NEGATIVE Urine Occult Blood LARGE H Urine Nitrite POSITIVE H Urine Bilirubin NEGATIVE Urine Urobilinogen 0.2 (NORMAL) Ur Leukocyte Esterase TRACE H Urine RBC TNTC H Urine WBC 0-3 Ur Squamous Epith Cells MANY Squamous H Urine Bacteria Many H Ur Microscopic Review INDICATED Urine Culture Comments NOT INDICATED Urine HCG, Qual NEGATIVE 11/13/17 22:22 WBC RBC Hgb Hct MCV MCH MCHC RDW Plt Count MPV Neut # Lymph # [place] # Eos # Baso # Absolute Nucleated RBC Nucleated RBC % Sodium Potassium Chloride Carbon Dioxide Anion Gap BUN Creatinine Estimated GFR (MDRD) Glucose Calcium Total Bilirubin AST ALT Alkaline Phosphatase Total Protein Albumin Globulin Albumin/Globulin Ratio Lipase Urine Color YELLOW Urine Clarity HAZY Urine pH 6.0 Ur Specific [place] 1.025 Urine Protein 30 H Urine Glucose (UA) NEGATIVE Urine Ketones TRACE Urine Occult Blood LARGE H Urine Nitrite POSITIVE H Urine Bilirubin NEGATIVE Urine Urobilinogen 0.2 (NORMAL) Ur Leukocyte Esterase NEGATIVE Urine RBC 11-25 H Urine WBC 0-3 Ur Squamous Epith Cells MANY Squamous H Urine Bacteria Many H Ur Microscopic Review INDICATED Urine Culture Comments NOT INDICATED Urine HCG, Qual Procedures - General procedure General procedure: She was difficult for IV access, I personally placed a long 20-gauge IV in the right antecubital fossa after ChloraPrep using real-time ultrasound guidance which dahiana blood easily and flushed well. PD MEDICAL DECISION MAKING - ED course ED course: 36-year-old woman with recurrent renal colic presents with apparent same. Initial urinalysis was contaminated and she was counseled on clean-catch techniques and this was repeated, also contaminated. The nitrate is compelling but there are no white cells and the history suggests against urinary tract infection as does the lack of white blood cell count or fevers. I discussed with her that the standard of care at this point was probably a catheterized urinalysis which she refused. In lieu of this we will do a couple days of antibiotics and she will return posthaste for any fever and follow-up with her urologist. Departure - Departure Disposition: 01 Home, Self Care Clinical Impression: Renal colic on right side Condition: Good Record reviewed to determine appropriate education?: Yes Instructions: ED Stone Renal W Colic Prescriptions: Ciprofloxacin HCl [Cipro] 500 mg PO BID #14 tablet Ondansetron HCl [Zofran] 4 mg PO Q6H PRN #10 tablet PRN Reason: Nausea / Vomiting Oxycodone HCl/Acetaminophen [Percocet 5-325 mg Tablet] 1 - 2 tab PO Q4H PRN #15 tablet PRN Reason: Pain Comments: Drink plenty of fluids, return immediately for any fevers. Follow-up with your urologist within the next few days.
[2017-11-13 21:47] LABS: BILIRUBIN,URINE NEGATIVE (NEGATIVE); GLUCOSE, URINE (UA) NEGATIVE (NEGATIVE); KETONES,URINE (UA) NEGATIVE (NEGATIVE); LEUKOCYTE ESTERASE, URINE TRACE (NEGATIVE); NITRITE,URINE POSITIVE (NEGATIVE); OCCULT BLOOD,URINE LARGE (NEGATIVE); PH,URINE 5.5 PH (5.0-7.5); PROTEIN,URINE 30 mg/dL (NEGATIVE); UROBILINOGEN,URINE 0.2 (NORMAL) E.U./dL (NORMAL)
[2017-11-13 21:50] LABS: CLARITY,URINE SL. CLOUDY (CLEAR); HCG UR QUAL NEGATIVE
[2017-11-13 21:59] LABS: BASOPHILS # (AUTO) 0.1 10^3/uL (0.0-0.1); BASOPHILS % (AUTO) 0.5 %; EOSINOPHILS # (AUTO) 0.1 10^3/uL (0.0-0.7); EOSINOPHILS % (AUTO) 1.3 %; HGB - HEMOGLOBIN 13.5 g/dL (12.0-16.0); LYMPHOCYTES # (AUTO) 3.3 10^3/uL (1.5-3.5); MEAN CORPUSCULAR HEMOGLOBIN 28.1 pg (27.0-31.0); MEAN CORPUSCULAR HGB CONC 33.5 g/dL (32.0-36.0); MEAN CORPUSCULAR VOLUME 84.1 fL (81.0-99.0); MEAN PLATELET VOLUME 8.4 fL (7.9-10.8); MONOCYTES # (AUTO) 0.8 10^3/uL (0.0-1.0); NEUTROPHILS # (AUTO) 5.7 10^3/uL (1.5-6.6); NEUTROPHILS % (AUTO) 57.2 %; PLT - PLATELET COUNT 228 10^3/uL (130-450); RED BLOOD COUNT 4.81 10^6/uL (4.20-5.40); WHITE BLOOD COUNT 9.9 x10^3/uL (4.8-10.8)
[2017-11-13 22:00] LABS: RBC,URINE TNTC /HPF (0-5); SQUAMOUS EPITHELIAL CELL,UR MANY Squamous (<= Few)
[2017-11-13 22:01] LABS: BACTERIA,URINE Many /HPF (None Seen)
[2017-11-13 22:13] LABS: ALBUMIN 3.8 g/dL (3.2-5.5); BILIRUBIN,TOTAL 0.3 mg/dL (0.2-1.0); CALCIUM 8.8 mg/dL (8.5-10.3); CREATININE 0.8 mg/dL (0.4-1.0); TOTAL PROTEIN 7.5 g/dL (6.7-8.2)
[2017-11-13 22:31] LABS: BILIRUBIN,URINE NEGATIVE (NEGATIVE); GLUCOSE, URINE (UA) NEGATIVE (NEGATIVE); KETONES,URINE (UA) TRACE mg/dL (NEGATIVE); LEUKOCYTE ESTERASE, URINE NEGATIVE (NEGATIVE); NITRITE,URINE POSITIVE (NEGATIVE); OCCULT BLOOD,URINE LARGE (NEGATIVE); PROTEIN,URINE 30 mg/dL (NEGATIVE); UROBILINOGEN,URINE 0.2 (NORMAL) E.U./dL (NORMAL)
[2017-11-13 22:33] LABS: CLARITY,URINE HAZY (CLEAR)
[2017-11-13 22:41] LABS: BACTERIA,URINE Many /HPF (None Seen); SQUAMOUS EPITHELIAL CELL,UR MANY Squamous (<= Few)
[2017-11-13] MEDS ORDERED: CIPROFLOXACIN 250 MG TABLET PO STA (22:57)
[2017-11-13] MEDS ORDERED: oxyCODONE/ACET 5/325 Prepack 4 PO STA (22:57)
== END 2017-11-13 23:10 | disposition home or self-care (01) ==
LOC: ED 21:23
DX: N23 Unspecified renal colic (principal); Z87.442 Personal history of urinary calculi
CPT/HCPCS: 36415; 80053; 81001; 81025; 83690; 85025; 96361; 96374; 96375; 99283; 99284; A9270; J1170; 81003; 87086

== ENCOUNTER 2018-07-21 16:45 | Outpatient (CLI) | payer OTHER | END 2018-07-21 23:59 | disposition home or self-care (01) | LOC: LAB.R 16:45 | PROVIDERS: ATTEND Physician Assistant Medical | DX: R31.9 Hematuria, unspecified (principal) | CPT/HCPCS: 87086 ==

== ENCOUNTER 2019-02-15 17:30 | Outpatient (CLI) | payer BC, OTHER | END 2019-02-15 17:31 | disposition home or self-care (01) | LOC: LAB.WCP 17:30 | PROVIDERS: ATTEND Physician Assistant Medical | DX: R31.9 Hematuria, unspecified (principal) | CPT/HCPCS: 87086 ==

== ENCOUNTER 2019-03-01 01:23 | Emergency (ER) | payer BC ==
[2019-03-01] MEDS ORDERED: ONDANSETRON 4 MG/2 ML VIAL IVP STA (01:27)
[2019-03-01] MEDS ORDERED: fentaNYL 100 MCG/2 ML VIAL IVP STA (01:27)
[2019-03-01] MEDS ORDERED: KETOROLAC 30 MG/ML VIAL IVP STA (01:27)
[2019-03-01 01:57] LABS: GLUCOSE, URINE (UA) NEGATIVE (NEGATIVE); KETONES,URINE (UA) NEGATIVE (NEGATIVE); LEUKOCYTE ESTERASE, URINE NEGATIVE (NEGATIVE); NITRITE,URINE NEGATIVE (NEGATIVE); OCCULT BLOOD,URINE LARGE (NEGATIVE); PROTEIN,URINE 100 mg/dL (NEGATIVE); UROBILINOGEN,URINE 2 E.U./dL (NORMAL)
--- NOTE | 2019-03-01 02:00 | ED Physician Documentation ---
PD HPI ABD PAIN - Stated complaint Stated Complaint: FLANK PX - Chief complaint Chief Complaint: Abd Pain - History obtained from History obtained from: Patient - History of Present Illness Timing - onset: How many hours ago (1.5) Timing - duration: Hours (1.5) Timing - details: Abrupt onset Quality: Pain Location: Other (right flank) Radiation: Other (right groin) Associated symptoms: Nausea. No: Fever, Vomiting, Dysuria Similar symptoms before: Diagnosis (History of kidney stones.) - Additional information Additional information: The patient is a 38-year-old female with history of kidney stones, who presents with sudden onset right flank pain radiating to the groin starting about 1.5 hours prior to arrival. She reports associated nausea, without vomiting. She denies fever or dysuria. The last time she had a similar episode was about 1 year ago. She has undergone lithotripsy in the past. Review of Systems Constitutional: denies: Fever Nose: denies: Congestion Cardiac: denies: Chest pain / pressure Respiratory: denies: Dyspnea, Cough GI: reports: Abdominal Pain, Nausea. 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 : Kidney stones HEENT: Chronic sinusitis Psych: None Musculoskeletal: None Derm: None - Past Surgical History Past Surgical History: Yes General: Appendectomy, Other /RESTAURANT SHIFT SUPERVISOR: Other - Present Medications Home Medications: Ambulatory Orders Medication Instructions Recorded Confirmed Sertraline [Zoloft] 25 mg PO HS 01/12/13 06/09/17 Multivitamin [Multi-Day Vitamins] 1 each PO DAILY 01/15/15 06/09/17 Amitriptyline [Elavil] 25 mg PO DAILY 10/08/16 06/09/17 Meloxicam [Mobic] 7.5 mg PO DAILY 10/08/16 06/09/17 traMADol [Ultram] 50 mg PO Q4-6H 10/08/16 06/09/17 Cyclobenzaprine [Flexeril] 10 mg PO TID PRN 06/09/17 06/09/17 oxyCODONE/ACET 5/325 [Percocet 5 1 - 2 tab PO Q4-6H PRN #15 tablet 06/09/ mg/325 mg] Ciprofloxacin HCl [Cipro] 500 mg PO BID #14 tablet 11/13/17 Ondansetron HCl [Zofran] 4 mg PO Q6H PRN #10 tablet 11/13/17 Oxycodone HCl/Acetaminophen 1 - 2 tab PO Q4H PRN #15 tablet 11/13/17 [Percocet 5-325 mg Tablet] Oxycodone HCl/Acetaminophen 1 - 2 each PO Q6H PRN #14 tablet 03/01/19 [Percocet 5-325 mg Tablet] Promethazine [Phenergan] 25 mg PO Q6H PRN #10 tab 03/01/19 - Allergies Allergies/Adverse Reactions: Allergies Allergy/AdvReac Type Severity Reaction Status Date / Time meperidine HCl * AdvReac Unknown family hx Verified 03/01/19 01:56 [From Demerol] of cardiac arrest - Social History Does the pt smoke?: No Smoking Status: Never smoker Does the pt drink ETOH?: No Does the pt have substance abuse?: No - Immunizations Immunizations are current?: Yes - POLST Patient has POLST: No PD ED PE NORMAL - Vitals Vital signs reviewed: Yes (Hypertensive) - General General: Alert and oriented X 3, Other (Morbidly obese.) - HEENT HEENT: Atraumatic - Cardiac Cardiac: RRR - Respiratory Respiratory: No respiratory distress, Clear bilaterally - Abdomen Abdomen: Soft, Non tender - Back Back: No spinal TTP, Other (Right flank tenderness to percussion.) - Derm Derm: No rash - Neuro Neuro: Alert and oriented X 3, No motor deficit, Normal speech Results - Vitals Vitals: Vital Signs - 24 hr 03/01/19 03/01/19 03/01/19 01:25 02:18 02:50 Temperature 36.4 C L Heart Rate 97 76 77 Respiratory 18 16 16 Rate Blood Pressure 162/90 H 137/88 H 131/83 H O2 Saturation 99 97 99 03/01/19 04:31 Temperature 36.9 C Heart Rate 79 Respiratory 18 Rate Blood Pressure 141/77 H O2 Saturation 99 Oxygen O2 Source Room air - Labs Labs: Laboratory Tests 03/01/19 01:40 Urine Color YELLOW Urine Clarity SL. CLOUDY Urine pH 6.0 Ur Specific [place] >=1.030 H Urine Protein 100 H Urine Glucose (UA) NEGATIVE Urine Ketones NEGATIVE Urine Occult Blood LARGE H Urine Nitrite NEGATIVE Urine Bilirubin NEGATIVE Urine Urobilinogen 2 H Ur Leukocyte Esterase NEGATIVE Urine RBC 11-25 H Urine WBC 0-3 Ur Squamous Epith Cells MOD Squamous H Urine Bacteria Few Ur Microscopic Review INDICATED Urine Culture Comments NOT INDICATED - Rads (name of study) CT abd/pelvis Radiology: Prelim report reviewed, EMP read contemporaneously, See rad report (1) Moderate right-sided hydronephrosis secondary to an obstructing right UPJ region stone, measuring 8.5 x 14.5 x 11 mm. The stone measures 744 HU in density. 2) At least 3 additional punctate right sided kidney stones and at least 2 left-sided kidney stones are noted. No left hydronephrosis.) PD MEDICAL DECISION MAKING - ED course Complexity details: reviewed old records, reviewed results, re-evaluated patient, considered differential, d/w patient, d/w qm consultant ED course: The patient's presentation is significant for right renal colic with an obstructing 11 x 14.5 x 8.5 mm UPJ stone seen on CT scan. Urinalysis is positive for microscopic hematuria, without pyuria. Treatment in the emergency department included administration of ketorolac 30 mg IV, ondansetron 4 mg IV, and fentanyl 50 mcg IV. This was followed with Di laudid 1 mg IV with subsequent resolution of her pain. I discussed her condition with Dr. Sawyer, urologist on-call at [facility]. She recommended outpatient follow-up in clinic. A copy of the patient's CT scan was put on a disc for the patient to take with her to the appointment. She is being discharged with prescriptions for Percocet and Phenergan. I discussed with her the results of her CT scan, the importance of follow-up with urology, as well as potentially worrisome signs or symptoms that should prompt reevaluation in the emergency department. Departure - Departure Disposition: 01 Home, Self Care Clinical Impression: Renal colic on right side, Hydronephrosis with obstructing calculus Condition: Stable Instructions: ED Stone Renal W Colic Follow-Up: Germania Sawyer MD [Provider Admit Priv/Credential] - Tarsha Cisneros PA-C [Primary Care Provider] - Prescriptions: Oxycodone HCl/Acetaminophen [Percocet 5-325 mg Tablet] 1 - 2 each PO Q6H PRN #14 tablet PRN Reason: pain Promethazine [Phenergan] 25 mg PO Q6H PRN #10 tab PRN Reason: Nausea / Vomiting Comments: You can use ibuprofen, up to 800 mg 3 times daily for its anti-inflammatory ef fect. You can use Percocet as prescribed if needed for pain. He can use Phenergan as prescribed if needed for nausea. Follow-up with the urologist as soon as possible. Call today to schedule an appointment. Return to the emergency department if you develop increasing pain despite the pain medication, fever, persistent vomiting, or otherwise worsening symptoms.
[2019-03-01 02:22] LABS: BILIRUBIN,URINE NEGATIVE (NEGATIVE); CLARITY,URINE SL. CLOUDY (CLEAR); ICTOTEST,URINE NEGATIVE
[2019-03-01 02:23] LABS: BACTERIA,URINE Few /HPF (None Seen); SQUAMOUS EPITHELIAL CELL,UR MOD Squamous (<= Few)
--- NOTE | 2019-03-01 02:49 | CT Report ---
Reason: right flank pain Procedure Date: 03/01/2019 Accession Number: [id number] / [id number] Procedure: CT - Abdomen/Pelvis WO CPT Code: FULL RESULT: EXAM: CT ABDOMEN AND PELVIS (CT KUB) EXAM DATE: 03/01/2019 02:16 AM. CLINICAL HISTORY: Right-sided lower flank pain since midnight. COMPARISONS: ABDOMEN/PELVIS W/O 06/09/2017 6:36 AM, ABDOMEN/PELVIS W/O 03/21/2017 11:01 PM. TECHNIQUE: Routine axial helical CT imaging was performed through the abdomen and pelvis without IV contrast. Reconstructions: Coronal and sagittal. In accordance with CT protocol optimization, one or more of the following dose reduction techniques were utilized for this exam: automated exposure control, adjustment of mA and/or KV based on patient size, or use of iterative reconstructive technique. FINDINGS: Patient body habitus compromises exam sensitivity and specificity. Motion further compromises exam sensitivity and specificity. Right Kidney/Ureter: Moderate right-sided hydronephrosis noted, secondary to an obstructing right UPJ region stone, measuring 8.5 x 14.5 x 11.0 mm (image 79 series 3). This stone measures 744 HU in density. There are multiple additional punctate stones within the right mid to lower kidney. No definite renal mass within the confines of a non-contrast exam. Left Kidney/Ureter: At least two intrarenal punctate stones within the left kidney are seen. No hydronephrosis or hydroureter. No definite renal mass within the confines of a non-contrast exam. Abdominal Solid Organs: Abdominal parenchymal organs are without significant abnormality within the confines of a noncontrast exam. Bowel: No evidence of bowel obstruction. Appendix: Normal. Lymph Nodes: No definite pathologic lymphadenopathy. Fluid: No significant ascites. Vasculature: Normal caliber aorta. Pelvis: Small size of the uterus. Ovaries are physiologic. No definite bladder stone evident on this examination. Bladder is decompressed, precluding assessment. Bones: No definite suspicious bony lesions demonstrated. Motion compromises detailed assessment of the osseous structures. Lower Chest: No significant lung base consolidation or effusion. IMPRESSION: 1. Moderate right-sided hydronephrosis secondary to an obstructing right UPJ region stone, measuring 8.5 x 14.5 x 11 mm. This stone measures 744 HU in density. 2. At least three additional punctate right-sided kidney stones and at least two left-sided kidney stones are noted. No left hydronephrosis. [facility]
[2019-03-01] MEDS ORDERED: HYDROmorphone 1 MG/ML CARPUJECT IVP STA (03:39)
[2019-03-01 04:32] VITALS: BP 141/77
[2019-03-01] MEDS ORDERED: oxyCODONE/ACET 5/325 Prepack 4 PO STA (04:46)
== END 2019-03-01 04:50 | disposition home or self-care (01) ==
LOC: ED 01:23
DX: N13.2 Hydronephrosis with renal and ureteral calculous obstruction (principal)
CPT/HCPCS: 74176; 81001; 96374; 96375; 99283; 99284; J1170; 81003; 87086

== ENCOUNTER 2019-03-12 08:50 | Outpatient (CLI) | payer BC | END 2019-03-12 23:59 | disposition home or self-care (01) | LOC: LAB.WCP 08:50 | PROVIDERS: ATTEND Physician Assistant Medical | DX: N20.0 Calculus of kidney (principal) | CPT/HCPCS: 87086 ==

== ENCOUNTER 2019-03-23 21:49 | Emergency (ER) | payer BC ==
--- NOTE | 2019-03-23 22:16 | ED Physician Documentation ---
PD HPI ABD PAIN - Stated complaint Stated Complaint: RLQ PX - Chief complaint Chief Complaint: Abd Pain - History obtained from History obtained from: Patient - History of Present Illness Timing - onset: Today Timing - duration: Days (1) Pain level max: 9 Pain level now: 9 Quality: Sharp, Pain Location: RLQ Improved by: Other (nothing) Worsened by: Other (nothing) Associated symptoms: No: Fever, Nausea, Vomiting, Diarrhea, Constipation - Additional information Additional information: states had a cystoscopy this am. taking percocet 10/325 today for pain. no fever or chills. had ureteral stone removed today. states worsening pain. did not contact her urologist. 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 : Kidney stones HEENT: Chronic sinusitis Psych: None Musculoskeletal: None Derm: None - Past Surgical History Past Surgical History: Yes General: Appendectomy, Other /HVAC JOURNEYMAN: Other - Present Medications Home Medications: Ambulatory Orders Medication Instructions Recorded Confirmed traMADol [Ultram] 50 mg PO Q4-6H 10/08/16 03/23/19 Cyclobenzaprine [Flexeril] 10 mg PO TID PRN 06/09/17 03/23/19 oxyCODONE/ACET 5/325 [Percocet 5 1 - 2 tab PO Q4-6H PRN #15 tablet 06/09/17 03/23/19 mg/325 mg] Gabapentin 300 mg PO DAILY 03/23/19 03/23/19 HYDROmorphone [Dilaudid] 2 - 4 mg PO Q4H PRN #10 tablet 03/23/19 - Allergies Allergies/Adverse Reactions: Allergies Allergy/AdvReac Type Severity Reaction Status Date / Time meperidine HCl * AdvReac Unknown family hx Verified 03/01/19 01:56 [From Demerol] of cardiac arrest - Social History Does the pt smoke?: No Smoking Status: Never smoker Does the pt drink ETOH?: No Does the pt have substance abuse?: No - Immunizations Immunizations are current?: Yes - POLST Patient has POLST: No PD ED PE NORMAL - Vitals Vital signs reviewed: Yes - General General: Alert and oriented X 3, No acute distress, Other (morbidly obese female) - HEENT HEENT: Moist mucous membranes - Neck Neck: Supple, no meningeal sign - Cardiac Cardiac: RRR - Respiratory Respiratory: No respiratory distress, Clear bilaterally - Abdomen Abdomen: Soft, Non tender, Non distended - Derm Derm: Warm and dry, No rash - Neuro Neuro: Alert and oriented X 3 - Psych Psych: Normal mood, Normal affect Results - Vitals Vitals: Vital Signs - 24 hr 03/23/19 03/23/19 21:57 23:24 Temperature 36.9 C 36.6 C Heart Rate 103 H 86 Respiratory 18 18 Rate Blood Pressure 184/95 H 146/106 H O2 Saturation 100 98 Oxygen O2 Source Room air - Labs Labs: Laboratory Tests 03/23/19 22:44 Urine Color DARK YELLOW Urine Clarity CLEAR Urine pH 5.5 Ur Specific [place] >=1.030 H Urine Protein 100 H Urine Glucose (UA) NEGATIVE Urine Ketones NEGATIVE Urine Occult Blood MODERATE H Urine Nitrite NEGATIVE Urine Bilirubin NEGATIVE Urine Urobilinogen 0.2 (NORMAL) Ur Leukocyte Esterase NEGATIVE Urine RBC 6-10 H Urine WBC 4-5 Ur Squamous Epith Cells MOD Squamous H Urine Crystals 3-5 Calcium Oxalate Urine Bacteria Few Urine Mucus Few Strands Ur Microscopic Review INDICATED Urine Culture Comments NOT INDICATED PD MEDICAL DECISION MAKING - ED course Complexity details: re-evaluated patient (Pain improved), considered differential, d/w patient, d/w family, d/w security and privacy consultant ED course: 38-year-old female presents to the emergency department with postprocedural pain. Abdomen is soft, nontender nondistended. No peritoneal signs. Discussed the case with Dr. Raphael, urology who recommends trialing her on Dilaudid. She is already on Flomax. She will follow-up with the office in the morning. Patient counseled regarding signs and symptoms for which I believe and urgent re- evaluation would be necessary. Patient with good understanding of and agreement to plan and is comfortable going home at this time This document was made in part using voice recognition software. While efforts are made to proofread this document, sound alike and grammatical errors may occur. No indication for labs at this time Departure - Departure Disposition: 01 Home, Self Care Clinical Impression: Post procedure discomfort Condition: Good Instructions: ED Abdominal Pain Unkn Cause Follow-Up: Tarsha Cisneros PA-C [Primary Care Provider] - Rodrigo Raphael MD [Physician No Access] - Tomorrow Prescriptions: HYDROmorphone [Dilaudid] 2 - 4 mg PO Q4H PRN #10 tablet PRN Reason: Abdominal Pain Comments: Call urology in the morning to discuss further care. Return if you worsen, especially for fevers. Use the hydromorphone as needed for breakthrough pain. Discharge Date/Time: 03/23/19 23:29
[2019-03-23] MEDS ORDERED: HYDROmorphone 1 MG/ML CARPUJECT IM STA (22:34)
[2019-03-23] MEDS ORDERED: TAMSULOSIN 0.4 MG CAPSULE PO STA (22:37)
[2019-03-23 22:55] LABS: GLUCOSE, URINE (UA) NEGATIVE (NEGATIVE); KETONES,URINE (UA) NEGATIVE (NEGATIVE); LEUKOCYTE ESTERASE, URINE NEGATIVE (NEGATIVE); NITRITE,URINE NEGATIVE (NEGATIVE); OCCULT BLOOD,URINE MODERATE (NEGATIVE); PH,URINE 5.5 PH (5.0-7.5); PROTEIN,URINE 100 mg/dL (NEGATIVE); UROBILINOGEN,URINE 0.2 (NORMAL) E.U./dL (NORMAL)
[2019-03-23 22:56] LABS: CLARITY,URINE CLEAR (CLEAR)
[2019-03-23 22:57] LABS: BILIRUBIN,URINE NEGATIVE (NEGATIVE); ICTOTEST,URINE NEGATIVE
[2019-03-23 23:01] LABS: BACTERIA,URINE Few /HPF (None Seen); MUCUS,URINE Few Strands; SQUAMOUS EPITHELIAL CELL,UR MOD Squamous (<= Few)
[2019-03-23 23:02] LABS: CRYSTALS,URINE 3-5 Calcium Oxalate /LPF
[2019-03-23] MEDS ORDERED: HYDROmorphone 2 MG TABLET PO STA (23:17)
[2019-03-23 23:27] VITALS: BP 146/106
== END 2019-03-23 23:29 | disposition home or self-care (01) ==
LOC: ED 21:49
DX: G89.18 Other acute postprocedural pain (principal); R10.31 Right lower quadrant pain
CPT/HCPCS: 81001; 96372; 99283; 99284; A9270; J1170; 81003; 87086

== ENCOUNTER 2019-07-19 18:40 | Emergency (ER) | payer BC ==
[2019-07-19] MEDS ORDERED: KETOROLAC 30 MG/ML VIAL IVP STA (19:16)
[2019-07-19] MEDS ORDERED: HYDROmorphone 1 MG/ML CARPUJECT IVP STA ×2 (19:16→20:39)
[2019-07-19] MEDS ORDERED: ONDANSETRON 4 MG/2 ML VIAL IVP STA (19:16)
--- NOTE | 2019-07-19 19:20 | ED Physician Documentation ---
History of Present Illness - Stated complaint Stated Complaint: LT FLANK PAIN - Chief complaint Chief Complaint: UTI - History obtained from History obtained from: Patient (38-year-old woman with multiple kidney stones in the past presents with 1 hour of severe left flank pain. No nausea or vomiting. Feels similar prior kidney stones and she does have gross hematuria. Last kidney stone was in February, that one was did need to be removed. At that time she had to small nephroliths on the left.) Review of Systems Constitutional: denies: Fever, Chills Cardiac: denies: Chest pain / pressure, Palpitations Respiratory: denies: Dyspnea, Cough GI: denies: Abdominal Pain, Nausea, Vomiting PD PAST MEDICAL HISTORY - Past Medical History Cardiovascular: None Respiratory: Sleep apnea Neuro: None Endocrine/Autoimmune: None GI: Other VP SALES: None : Kidney stones HEENT: Chronic sinusitis Psych: None Musculoskeletal: None Derm: None - Past Surgical History Past Surgical History: Yes General: Appendectomy, Other /VP SALES: Other - Present Medications Home Medications: Ambulatory Orders Medication Instructions Recorded Confirmed traMADol [Ultram] 50 mg PO Q4-6H 10/08/16 03/23/19 Cyclobenzaprine [Flexeril] 10 mg PO TID PRN 06/09/17 03/23/19 oxyCODONE/ACET 5/325 [Percocet 5 1 - 2 tab PO Q4-6H PRN #15 tablet 06/09/17 03/23/19 mg/325 mg] Gabapentin 300 mg PO DAILY 03/23/19 03/23/19 HYDROmorphone [Dilaudid] 2 - 4 mg PO Q4H PRN #10 tablet 03/23/19 Ibuprofen [Motrin] 800 mg PO Q8H PRN #30 tablet 07/19/19 Ondansetron Odt [Zofran] 4 mg TL Q6H PRN #10 tablet 07/19/19 Oxycodone HCl/Acetaminophen 1 - 2 each PO Q6H PRN #14 tablet 07/19/19 [Percocet 5-325 mg Tablet] - Allergies Allergies/Adverse Reactions: Allergies Allergy/AdvReac Type Severity Reaction Status Date / Time meperidine HCl * AdvReac Unknown family hx Verified 07/19/19 18:[address] [facility] - Social History Does the pt smoke?: No Smoking Status: Never smoker Does the pt drink ETOH?: No Does the pt have substance abuse?: No - Immunizations Immunizations are current?: Yes - POLST Patient has POLST: No PD ED PE NORMAL - Vitals Vital signs reviewed: Yes - General General: Alert and oriented X 3, No acute distress - Abdomen Abdomen: Normal bowel sounds, Soft, Non tender - Back Back: No CVA TTP, No spinal TTP - Derm Derm: Normal color, Warm and dry - Neuro Neuro: Alert and oriented X 3, Normal speech Results - Vitals Vitals: Vital Signs - 24 hr 07/19/19 07/19/19 18:43 20:31 Temperature 36.4 C L 37.4 C Heart Rate 89 77 Respiratory 20 20 Rate Blood Pressure 178/85 H 129/79 O2 Saturation 100 100 Oxygen O2 Source Room air - Labs Labs: Laboratory Tests 07/19/19 07/19/19 07/19/19 19:14 19:38 19:38 WBC 9.0 RBC 4.70 Hgb 13.6 Hct 43.0 MCV 91.5 MCH 28.9 MCHC 31.6 L RDW 13.2 Plt Count 242 MPV 10.9 H Neut # (Auto) 4.9 Lymph # (Auto) 3.3 White # (Auto) 0.6 Eos # (Auto) 0.2 Baso # (Auto) 0.0 Absolute Nucleated RBC 0.00 Nucleated RBC % 0.0 Sodium 138 Potassium 3.5 Chloride 104 Carbon Dioxide 25 Anion Gap 9.0 BUN 12 Creatinine 0.9 Estimated GFR (MDRD) 70 L Glucose 94 Calcium 9.0 Total Bilirubin 0.5 AST 18 ALT 18 Alkaline Phosphatase 80 Total Protein 7.5 Albumin 3.7 Globulin 3.8 Albumin/Globulin Ratio 1.0 Lipase 28 Urine Color YELLOW Urine Clarity HAZY Urine pH 6.0 Ur Specific [place] >=1.030 H Urine Protein 30 H Urine Glucose (UA) NEGATIVE Urine Ketones NEGATIVE Urine Occult Blood LARGE H Urine Nitrite NEGATIVE Urine Bilirubin NEGATIVE Urine Urobilinogen 1 (NORMAL) Ur Leukocyte Esterase NEGATIVE Urine RBC TNTC H Urine WBC 0-3 Ur Squamous Epith Cells MOD Squamous H Urine Bacteria None Seen Ur Microscopic Review INDICATED Urine Culture Comments NOT INDICATED PD MEDICAL DECISION MAKING - ED course ED course: 38-year-old woman with history of recurrent renal colic presents with signs and symptoms reminiscent of the same. We discussed a CT, but given her history I do not think that the diagnosis is in question. And after discussion she declined a CAT scan this evening. She was treated with divided doses of pain medication with significant improvement and requesting discharge. She has Flomax at home and will start taking it tonight. Departure - Departure Disposition: 01 Home, Self Care Clinical Impression: Renal colic Condition: Good Record reviewed to determine appropriate education?: Yes Instructions: ED Stone Renal W Colic Prescriptions: Ibuprofen [Motrin] 800 mg PO Q8H PRN #30 tablet PRN Reason: PAIN &/OR FEVER Ondansetron Odt [Zofran] 4 mg TL Q6H PRN #10 tablet PRN Reason: Nausea / Vomiting Oxycodone HCl/Acetaminophen [Percocet 5-325 mg Tablet] 1 - 2 each PO Q6H PRN #14 tablet PRN Reason: pain Comments: Follow-up with your urologist in a week or so if symptoms are persistent. Return for new or worsening symptoms. Start your Flomax tonight as discussed. Do not drink or drive while taking narcotic pain medication. Note that many narcotic pain relievers also contain Tylenol/acetaminophen. Please ensure that your total dose of acetaminophen from all sources does not exceed 3 g (3000 mg) per day. You may get constipated while on this medication. Take a stool softener such as Colace twice a day while you are on it. Also add an [id number] laxative such as senna or MiraLAX on any day that you do not have a bowel movement. If you received a narcotic pain medication or sedative while in the emergency department, do not drive for the next 24 hours.
[2019-07-19 19:30] LABS: BILIRUBIN,URINE NEGATIVE (NEGATIVE); GLUCOSE, URINE (UA) NEGATIVE (NEGATIVE); KETONES,URINE (UA) NEGATIVE (NEGATIVE); LEUKOCYTE ESTERASE, URINE NEGATIVE (NEGATIVE); NITRITE,URINE NEGATIVE (NEGATIVE); OCCULT BLOOD,URINE LARGE (NEGATIVE); PROTEIN,URINE 30 mg/dL (NEGATIVE); UROBILINOGEN,URINE 1 (NORMAL) E.U./dL (NORMAL)
[2019-07-19 19:32] LABS: CLARITY,URINE HAZY (CLEAR)
[2019-07-19 19:48] LABS: BACTERIA,URINE None Seen /HPF (None Seen); RBC,URINE TNTC /HPF (0-5); SQUAMOUS EPITHELIAL CELL,UR MOD Squamous (<= Few)
[2019-07-19 19:50] LABS: BASOPHILS % (AUTO) 0.2 %; EOSINOPHILS # (AUTO) 0.2 10^3/uL (0.0-0.7); HGB - HEMOGLOBIN 13.6 g/dL (12.0-16.0); LYMPHOCYTES # (AUTO) 3.3 10^3/uL (1.5-3.5); LYMPHOCYTES % (AUTO) 36.5 %; MEAN CORPUSCULAR HEMOGLOBIN 28.9 pg (27.0-31.0); MEAN CORPUSCULAR HGB CONC 31.6 g/dL (32.0-36.0); MEAN CORPUSCULAR VOLUME 91.5 fL (81.0-99.0); MEAN PLATELET VOLUME 10.9 fL (7.9-10.8); MONOCYTES # (AUTO) 0.6 10^3/uL (0.0-1.0); MONOCYTES % (AUTO) 6.5 %; NEUTROPHILS # (AUTO) 4.9 10^3/uL (1.5-6.6); NEUTROPHILS % (AUTO) 54.4 %; PLT - PLATELET COUNT 242 10^3/uL (130-450); RED CELL DISTRIBUTION WIDTH 13.2 % (12.0-15.0)
[2019-07-19 19:57] LABS: ALBUMIN 3.7 g/dL (3.2-5.5); BILIRUBIN,TOTAL 0.5 mg/dL (0.2-1.0); CREATININE 0.9 mg/dL (0.4-1.0); TOTAL PROTEIN 7.5 g/dL (6.7-8.2)
[2019-07-19] MEDS ORDERED: oxyCODONE/ACET 5/325 Prepack 4 PO STA (21:18)
[2019-07-19] MEDS ORDERED: ONDANSETRON ODT 4 MG Prepack 2 TL STA (21:18)
[2019-07-19 21:41] VITALS: BP 140/84
== END 2019-07-19 21:46 | disposition home or self-care (01) ==
LOC: ED 18:40
DX: N23 Unspecified renal colic (principal)
CPT/HCPCS: 36415; 80053; 81001; 83690; 85025; 96374; 96376; 99283; 99284; J1170; 81003; 87086

== ENCOUNTER 2019-08-04 12:42 | Emergency (ER) | payer BC ==
--- NOTE | 2019-08-04 13:20 | ED Physician Documentation ---
PD HPI ABD PAIN - Stated complaint Stated Complaint: RT SIDE PX - Chief complaint Chief Complaint: Abd Pain - History obtained from History obtained from: Patient - History of Present Illness Timing - onset: How many minutes ago (30), Today Timing - duration: Minutes (30) Timing - details: Abrupt onset, Still present Quality: Sharp, Pain Location: RLQ Radiation: Right flank Improved by: No: Laying still Worsened by: No: Moving, Breathing Associated symptoms: Nausea. No: Fever Similar symptoms before: Diagnosis (feels similar to kidney stones in the past.) Review of Systems Constitutional: denies: Fever, Chills Nose: denies: Rhinorrhea / runny nose, Congestion Throat: denies: Sore throat Respiratory: denies: Cough GI: reports: Nausea. 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 : Kidney stones HEENT: Chronic sinusitis Psych: None Musculoskeletal: None Derm: None - Past Surgical History Past Surgical History: Yes General: Appendectomy, Other /COPY READER: Other - Present Medications Home Medications: Ambulatory Orders Medication Instructions Recorded Confirmed traMADol [Ultram] 50 mg PO Q4-6H 10/08/16 03/23/19 Cyclobenzaprine [Flexeril] 10 mg PO TID PRN 06/09/17 03/23/19 oxyCODONE/ACET 5/325 [Percocet 5 1 - 2 tab PO Q4-6H PRN #15 tablet 06/09/17 03/23/19 mg/325 mg] Gabapentin 300 mg PO DAILY 03/23/19 03/23/19 HYDROmorphone [Dilaudid] 2 - 4 mg PO Q4H PRN #10 tablet 03/23/19 Ibuprofen [Motrin] 800 mg PO Q8H PRN #30 tablet 07/19/19 Ondansetron Odt [Zofran] 4 mg TL Q6H PRN #10 tablet 07/19/19 Oxycodone HCl/Acetaminophen 1 - 2 each PO Q6H PRN #14 tablet 07/19/19 [Percocet 5-325 mg Tablet] Cephalexin [Keflex] 500 mg PO Q6H #20 capsule 08/04/19 Oxycodone HCl/Acetaminophen 1 each PO Q4H PRN #20 tablet 08/04/19 [Percocet 7.5-325 mg Tablet] dexAMETHasone [Decadron] 4 mg PO DAILY #5 tablet 08/04/19 - Allergies Allergies/Adverse Reactions: Allergies Allergy/AdvReac Type Severity Reaction Status Date / Time acetaminophen [From Lortab] Allergy Unknown Verified 08/04/19 12:47 ciprofloxacin [From Cipro] Allergy Unknown Verified 08/04/19 12:47 hydrocodone [From Lortab] Allergy Unknown Verified 08/04/19 12:47 ondansetron [From Zofran] Allergy Unknown Verified 08/04/19 12:47 meperidine HCl * AdvReac Unknown family hx Verified 08/04/19 12:47 [From Demerol] of cardiac arrest seasonal allergies Allergy Unknown Uncoded 07/20/19 09:22 - Social History Does the pt smoke?: No Smoking Status: Never smoker Does the pt drink ETOH?: No Does the pt have substance abuse?: No - Immunizations Immunizations are current?: Yes - POLST Patient has POLST: No PD ED PE NORMAL - Vitals Vital signs reviewed: Yes - General General: Alert and oriented X 3, No acute distress, Well developed/nourished - Neck Neck: Supple, no meningeal sign, No adenopathy - Cardiac Cardiac: RRR, No murmur - Respiratory Respiratory: Clear bilaterally - Female Female : Deferred - Rectal Rectal: Deferred - Back Back: Other (right CVA tenderness to percussion. Right abd not tender. ) - Derm Derm: Normal color, Warm and dry - Neuro Neuro: Alert and oriented X 3, No motor deficit, Normal speech Results - Vitals Vitals: Vital Signs - 24 hr 08/04/19 08/04/19 08/04/19 12:47 15:56 16:30 Temperature 36.3 C L Heart Rate 90 80 86 Respiratory 20 18 18 Rate Blood Pressure 146/100 H 156/90 H 149/95 H O2 Saturation 99 97 98 Oxygen O2 Source Room air - Labs Labs: Laboratory Tests 08/04/19 08/04/19 08/04/19 13:05 13:17 13:17 WBC 7.0 RBC 4.73 Hgb 13.9 Hct 42.0 MCV 88.8 MCH 29.4 MCHC 33.1 RDW 12.8 Plt Count 248 MPV 10.8 Neut # (Auto) 4.4 Lymph # (Auto) 2.0 [place] # (Auto) 0.6 Eos # (Auto) 0.1 Baso # (Auto) 0.0 Absolute Nucleated RBC 0.00 Nucleated RBC % 0.0 Sodium 141 Potassium 3.8 Chloride 110 Carbon Dioxide 21 Anion Gap 10.0 BUN 12 Creatinine 0.9 Estimated GFR (MDRD) 70 L Glucose 117 H Calcium 8.9 Total Bilirubin 0.4 AST 20 ALT 19 Alkaline Phosphatase 78 Total Protein 7.3 Albumin 3.7 Globulin 3.6 Albumin/Globulin Ratio 1.0 Lipase 32 Urine Color YELLOW Urine Clarity CLOUDY Urine pH 6.0 Ur Specific [place] >=1.030 H Urine Protein 100 H Urine Glucose (UA) NEGATIVE Urine Ketones TRACE Urine Occult Blood LARGE H Urine Nitrite NEGATIVE Urine Bilirubin NEGATIVE Urine Urobilinogen 4 H Ur Leukocyte Esterase TRACE H Urine RBC TNTC H Urine WBC 4-5 Ur Squamous Epith Cells MANY Squamous H Urine Crystals >50 Calcium Oxalate Urine Bacteria Many H Urine Mucus Marked Strands Ur Microscopic Review INDICATED Urine Culture Comments NOT INDICATED Urine HCG, Qual TNP PD MEDICAL DECISION MAKING - ED course Complexity details: reviewed old records (prior CT in February showed a llarge right stone that had been removed per patient. Otherwise there were just punctate stones on the CT; so presume not having large stone pass at this time, so opted for no image in shared decision with the patient. ), reviewed results, re- evaluated patient (feeling improved with pain meds and lido. ), d/w patient Departure - Departure Disposition: 01 Home, Self Care Clinical Impression: Right sided abdominal pain, Ureterolithiasis Condition: Stable Record reviewed to determine appropriate education?: Yes Instructions: ED Stone Renal W Colic Follow-Up: Tarsha Cisneros PA-C [Primary Care Provider] - Prescriptions: Cephalexin [Keflex] 500 mg PO Q6H #20 capsule dexAMETHasone [Decadron] 4 mg PO DAILY #5 tablet Oxycodone HCl/Acetaminophen [Percocet 7.5-325 mg Tablet] 1 each PO Q4H PRN #20 tablet PRN Reason: Pain Comments: Continue usual meloxicam. Add your tamsulosin daily for the next several days. Ondansetron if needed for nausea. Add oxycodone if needed for pain. Recheck if not improved well over the next few days and return sooner if seems worsening. There is suggestion of infection in the urine so add cephalexin for 5 days as well. Discharge Date/Time: 08/04/19 16:36
[2019-08-04 13:23] LABS: GLUCOSE, URINE (UA) NEGATIVE (NEGATIVE); KETONES,URINE (UA) TRACE mg/dL (NEGATIVE); LEUKOCYTE ESTERASE, URINE TRACE (NEGATIVE); NITRITE,URINE NEGATIVE (NEGATIVE); OCCULT BLOOD,URINE LARGE (NEGATIVE); PROTEIN,URINE 100 mg/dL (NEGATIVE); UROBILINOGEN,URINE 4 E.U./dL (NORMAL)
[2019-08-04 13:26] LABS: BASOPHILS % (AUTO) 0.3 %; EOSINOPHILS # (AUTO) 0.1 10^3/uL (0.0-0.7); EOSINOPHILS % (AUTO) 0.9 %; HGB - HEMOGLOBIN 13.9 g/dL (12.0-16.0); MEAN CORPUSCULAR HEMOGLOBIN 29.4 pg (27.0-31.0); MEAN CORPUSCULAR HGB CONC 33.1 g/dL (32.0-36.0); MEAN CORPUSCULAR VOLUME 88.8 fL (81.0-99.0); MEAN PLATELET VOLUME 10.8 fL (7.9-10.8); MONOCYTES # (AUTO) 0.6 10^3/uL (0.0-1.0); MONOCYTES % (AUTO) 8.3 %; NEUTROPHILS # (AUTO) 4.4 10^3/uL (1.5-6.6); NEUTROPHILS % (AUTO) 62.2 %; PLT - PLATELET COUNT 248 10^3/uL (130-450); RED BLOOD COUNT 4.73 10^6/uL (4.20-5.40); RED CELL DISTRIBUTION WIDTH 12.8 % (12.0-15.0)
[2019-08-04 13:33] LABS: BILIRUBIN,URINE NEGATIVE (NEGATIVE); CLARITY,URINE CLOUDY (CLEAR); ICTOTEST,URINE NEGATIVE
[2019-08-04] MEDS ORDERED: HYDROmorphone 2 MG/ML VIAL IM STA (13:33)
[2019-08-04] MEDS ORDERED: KETOROLAC 30 MG/ML VIAL IM STA (13:33)
[2019-08-04] MEDS ORDERED: HYDROmorphone 1 MG/ML CARPUJECT IVP STA ×2 (13:34→15:32)
[2019-08-04 13:42] LABS: ALBUMIN 3.7 g/dL (3.2-5.5); BILIRUBIN,TOTAL 0.4 mg/dL (0.2-1.0); CALCIUM 8.9 mg/dL (8.5-10.3); CREATININE 0.9 mg/dL (0.4-1.0); TOTAL PROTEIN 7.3 g/dL (6.7-8.2)
[2019-08-04 13:46] LABS: BACTERIA,URINE Many /HPF (None Seen); RBC,URINE TNTC /HPF (0-5); SQUAMOUS EPITHELIAL CELL,UR MANY Squamous (<= Few)
[2019-08-04 13:47] LABS: CRYSTALS,URINE >50 Calcium Oxalate /LPF; MUCUS,URINE Marked Strands
[2019-08-04] MEDS ORDERED: ONDANSETRON 4 MG/2 ML VIAL IVP STA (13:59)
[2019-08-04] MEDS ORDERED: KETOROLAC 30 MG/ML VIAL IVP STA (13:59)
[2019-08-04] MEDS ORDERED: LIDOCAINE-MPF 2% 10 ML in SODIUM CHLORIDE 0.9% 50 ML IV STA (14:02)
[2019-08-04] MEDS ORDERED: LIDOCAINE-MPF 2% 10 ML in SODIUM CHLORIDE 0.9% 50 ML IV SCH (15:00)
[2019-08-04] MEDS ORDERED: cephALEXin 250 MG CAPSULE PO STA (15:37)
[2019-08-04 16:31] VITALS: BP 149/95
== END 2019-08-04 16:36 | disposition home or self-care (01) ==
LOC: ED 12:42
DX: N20.1 Calculus of ureter (principal); Z87.442 Personal history of urinary calculi
CPT/HCPCS: 36415; 80053; 81001; 83690; 85025; 96365; 96375; 96376; 99284; 99285; A9270; J1170; J7040; 81003; 81025; 87086

== ENCOUNTER 2019-11-27 09:04 | Emergency (ER) | payer BC ==
--- NOTE | 2019-11-27 09:21 | ED Physician Documentation ---
PD HPI ABD PAIN - Stated complaint Stated Complaint: L SIDE PAIN - History obtained from History obtained from: Patient - History of Present Illness Timing - onset: How many hours ago (2), Today Timing - duration: Hours (2) Timing - details: Abrupt onset, Still present Quality: Aching, Sharp, Pain Location: LLQ Radiation: Left flank Improved by: No: Eating Worsened by: No: Eating, Moving, Palpation Associated symptoms: Nausea. No: Fever, Vomiting, Diarrhea, Constipation, Dysuria, Hematuria Similar symptoms before: Diagnosis (The current pain is feeling consistent with multiple kidney stone she has had in the past. Had not had one for 5 months. Last procedure for stone was February 2019 with sounds like lithotripsy.) Review of Systems Constitutional: denies: Fever, Chills Nose: denies: Rhinorrhea / runny nose, Congestion Throat: denies: Sore throat Cardiac: denies: Chest pain / pressure Respiratory: denies: Cough GI: reports: Abdominal Pain, Nausea. 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: Other - Present Medications Home Medications: Ambulatory Orders Medication Instructions Recorded Confirmed traMADol [Ultram] 50 mg PO Q4-6H 10/08/16 03/23/19 Cyclobenzaprine [Flexeril] 10 mg PO TID PRN 06/09/17 03/23/19 oxyCODONE/ACET 5/325 [Percocet 5 1 - 2 tab PO Q4-6H PRN #15 tablet 06/09/17 03/23/19 mg/325 mg] Gabapentin 300 mg PO DAILY 03/23/19 03/23/19 HYDROmorphone [Dilaudid] 2 - 4 mg PO Q4H PRN #10 tablet 03/23/19 Ibuprofen [Motrin] 800 mg PO Q8H PRN #30 tablet 07/19/19 Ondansetron Odt [Zofran] 4 mg TL Q6H PRN #10 tablet 07/19/19 Oxycodone HCl/Acetaminophen 1 - 2 each PO Q6H PRN #14 tablet 07/19/19 [Percocet 5-325 mg Tablet] Cephalexin [Keflex] 500 mg PO Q6H #20 capsule 08/04/19 Oxycodone HCl/Acetaminophen 1 each PO Q4H PRN #20 tablet 08/04/19 [Percocet 7.5-325 mg Tablet] dexAMETHasone [Decadron] 4 mg PO DAILY #5 tablet 08/04/19 Oxycodone HCl/Acetaminophen 1 each PO Q4H PRN #15 tablet 11/27/19 [Percocet 7.5-325 mg Tablet] Promethazine [Phenergan] 25 mg PO Q6H PRN #20 tab 11/27/19 - Allergies Allergies/Adverse Reactions: Allergies Allergy/AdvReac Type Severity Reaction Status Date / Time acetaminophen [From Lortab] Allergy Unknown Verified 11/27/19 09:35 ciprofloxacin [From Cipro] Allergy Unknown Verified 11/27/19 09:35 hydrocodone [From Lortab] Allergy Unknown Verified 11/27/19 09:35 ondansetron [From Zofran] Allergy Unknown Verified 11/27/19 09:35 meperidine HCl * AdvReac Unknown family hx Verified 11/27/19 09:35 [From Demerol] of cardiac arrest seasonal allergies Allergy Unknown Uncoded 11/27/19 09:35 - Social History Does the pt smoke?: No Smoking Status: Never smoker Does the pt drink ETOH?: No Does the pt have substance abuse?: No - Immunizations Immunizations are current?: Yes - POLST Patient has POLST: No PD ED PE NORMAL - Vitals Vital signs reviewed: Yes - General General: Alert and oriented X 3, Well developed/nourished, Other (appears uncomfortable) - HEENT HEENT: Pharynx benign - Neck Neck: Supple, no meningeal sign, No adenopathy - Cardiac Cardiac: RRR, No murmur - Respiratory Respiratory: Clear bilaterally - Abdomen Abdomen: Soft, Non tender, Other (obese) Results - Vitals Vitals: Vital Signs - 24 hr 11/27/19 11/27/19 11/27/19 09:32 09:34 11:50 Temperature 36.2 C L Heart Rate 90 75 87 Respiratory 18 16 16 Rate Blood Pressure 169/100 H 147/69 H 121/72 O2 Saturation 99 99 97 Oxygen O2 Source Room air - Labs Labs: Laboratory Tests 11/27/19 11:00 Urine Color DARK YELLOW Urine Clarity HAZY Urine pH 6.0 Ur Specific [place] >=1.030 H Urine Protein 30 H Urine Glucose (UA) NEGATIVE Urine Ketones NEGATIVE Urine Occult Blood LARGE H Urine Nitrite NEGATIVE Urine Bilirubin NEGATIVE Urine Urobilinogen 0.2 (NORMAL) Ur Leukocyte Esterase NEGATIVE Urine RBC TNTC H Urine WBC 0-3 Ur Squamous Epith Cells MOD Squamous H Urine Bacteria Moderate H Ur Microscopic Review INDICATED Urine Culture Comments NOT INDICATED PD MEDICAL DECISION MAKING - ED course Complexity details: considered differential (likely kidney stone. ), d/w patient ED course: Improved enough in her symptoms to feel comfortable going home. We will presume a kidney stone. Departure - Departure Disposition: 01 , Self Care Clinical Impression: Acute left flank pain, Renal colic on left side Condition: Stable Instructions: ED Stone Renal W Colic Follow-Up: Tarsha Cisneros PA-C [Primary Care Provider] - Prescriptions: Oxycodone HCl/Acetaminophen [Percocet 7.5-325 mg Tablet] 1 each PO Q4H PRN #15 tablet PRN Reason: Pain Promethazine [Phenergan] 25 mg PO Q6H PRN #20 tab PRN Reason: Nausea / Vomiting Comments: Stay well-hydrated. Continue usual medicines including the meloxicam. Add promethazine if needed for nausea. Add Tylenol 650 mg 4 times a day as needed for pain or oxycodone if needed for worse pain. Recheck if not improved well over the next couple of days return sooner if worse again. At this point we will presume passing a stone and see if it clears in the short-term. Discharge Date/Time: 11/27/19 11:53
[2019-11-27] MEDS ORDERED: LIDOCAINE-MPF 2% 9 ML in SODIUM CHLORIDE 0.9% 50 ML IV STA (09:39)
[2019-11-27] MEDS ORDERED: HYDROmorphone 1 MG/ML CARPUJECT IVP STA (09:39)
[2019-11-27] MEDS ORDERED: KETOROLAC 30 MG/ML VIAL IVP STA (09:39)
[2019-11-27] MEDS ORDERED: ONDANSETRON 4 MG/2 ML VIAL IVP STA (09:39)
[2019-11-27] MEDS ORDERED: SODIUM CHLORIDE 0.9% 1,000 ML IV ONE (09:41)
[2019-11-27] MEDS ORDERED: HYDROmorphone 2 MG/ML VIAL IVP STA (10:24)
[2019-11-27] MEDS ORDERED: oxyCODONE 5 MG TABLET PO STA (11:33)
[2019-11-27 11:39] LABS: GLUCOSE, URINE (UA) NEGATIVE (NEGATIVE); KETONES,URINE (UA) NEGATIVE (NEGATIVE); LEUKOCYTE ESTERASE, URINE NEGATIVE (NEGATIVE); NITRITE,URINE NEGATIVE (NEGATIVE); OCCULT BLOOD,URINE LARGE (NEGATIVE); PROTEIN,URINE 30 mg/dL (NEGATIVE); UROBILINOGEN,URINE 0.2 (NORMAL) E.U./dL (NORMAL)
[2019-11-27 11:47] LABS: BILIRUBIN,URINE NEGATIVE (NEGATIVE); CLARITY,URINE HAZY (CLEAR); ICTOTEST,URINE NEGATIVE
[2019-11-27 11:53] VITALS: BP 121/72
[2019-11-27 11:57] LABS: RBC,URINE TNTC /HPF (0-5); SQUAMOUS EPITHELIAL CELL,UR MOD Squamous (<= Few)
[2019-11-27 11:58] LABS: BACTERIA,URINE Moderate /HPF (None Seen)
== END 2019-11-27 11:53 | disposition home or self-care (01) ==
LOC: ED 09:04
DX: N20.0 Calculus of kidney (principal)
CPT/HCPCS: 81001; 96374; 96375; 96376; 99284; 99285; A9270; J1170; J7040; 81003; 87086

== ENCOUNTER 2020-02-21 18:07 | Emergency (ER) | payer BC ==
[2020-02-21] MEDS ORDERED: SODIUM CHLORIDE 0.9% 1,000 ML IV STA (18:46)
[2020-02-21] MEDS ORDERED: KETOROLAC 30 MG/ML VIAL IVP STA (18:46)
[2020-02-21] MEDS ORDERED: HYDROmorphone 1 MG/ML CARPUJECT IVP STA ×3 (18:46→22:53)
[2020-02-21 18:49] LABS: BASOPHILS % (AUTO) 0.5 %; EOSINOPHILS # (AUTO) 0.2 10^3/uL (0.0-0.7); EOSINOPHILS % (AUTO) 2.9 %; LYMPHOCYTES # (AUTO) 2.4 10^3/uL (1.5-3.5); LYMPHOCYTES % (AUTO) 38.4 %; MEAN CORPUSCULAR HGB CONC 32.3 g/dL (32.0-36.0); MEAN CORPUSCULAR VOLUME 89.6 fL (81.0-99.0); MEAN PLATELET VOLUME 10.7 fL (7.9-10.8); MONOCYTES # (AUTO) 0.4 10^3/uL (0.0-1.0); MONOCYTES % (AUTO) 5.8 %; NEUTROPHILS # (AUTO) 3.2 10^3/uL (1.5-6.6); NEUTROPHILS % (AUTO) 52.1 %; PLT - PLATELET COUNT 270 10^3/uL (130-450); RED BLOOD COUNT 5.18 10^6/uL (4.20-5.40); RED CELL DISTRIBUTION WIDTH 13.1 % (12.0-15.0); WHITE BLOOD COUNT 6.2 x10^3/uL (4.8-10.8)
[2020-02-21 19:02] LABS: ALBUMIN 3.7 g/dL (3.2-5.5); ALBUMIN/GLOBULIN RATIO 1.1 (1.0-2.2); BILIRUBIN,TOTAL 0.3 mg/dL (0.2-1.0); CALCIUM 8.8 mg/dL (8.5-10.3); CREATININE 0.9 mg/dL (0.4-1.0); TOTAL PROTEIN 7.2 g/dL (6.7-8.2)
[2020-02-21 19:18] LABS: BILIRUBIN,URINE NEGATIVE (NEGATIVE); GLUCOSE, URINE (UA) NEGATIVE (NEGATIVE); KETONES,URINE (UA) NEGATIVE (NEGATIVE); LEUKOCYTE ESTERASE, URINE SMALL (NEGATIVE); NITRITE,URINE POSITIVE (NEGATIVE); OCCULT BLOOD,URINE SMALL (NEGATIVE); PROTEIN,URINE 30 mg/dL (NEGATIVE); UROBILINOGEN,URINE 1 (NORMAL) E.U./dL (NORMAL)
--- NOTE | 2020-02-21 19:18 | ED Physician Documentation ---
PD HPI ABD PAIN - Stated complaint Stated Complaint: RT FLANK PX - Chief complaint Chief Complaint: Abd Pain - History obtained from History obtained from: Patient (This is a young woman with recurrent renal colic. Has had 2 days of mild right flank pain that became more severe today around 2:00. 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 : Kidney stones HEENT: Chronic sinusitis Psych: None Musculoskeletal: None Derm: None Other Past Medical History: right lung tumor - Past Surgical History Past Surgical History: Yes General: Appendectomy, Other /CARDROOM HAND: Other - Present Medications Home Medications: Ambulatory Orders Medication Instructions Recorded Confirmed traMADol [Ultram] 50 mg PO Q4-6H 10/08/16 03/23/19 Cyclobenzaprine [Flexeril] 10 mg PO TID PRN 06/09/17 03/23/19 oxyCODONE/ACET 5/325 [Percocet 5 1 - 2 tab PO Q4-6H PRN #15 tablet 06/09/17 03/23/19 mg/325 mg] Gabapentin 300 mg PO DAILY 03/23/19 03/23/19 HYDROmorphone [Dilaudid] 2 - 4 mg PO Q4H PRN #10 tablet 03/23/19 Ibuprofen [Motrin] 800 mg PO Q8H PRN #30 tablet 07/19/19 Ondansetron Odt [Zofran] 4 mg TL Q6H PRN #10 tablet 07/19/19 Oxycodone HCl/Acetaminophen 1 - 2 each PO Q6H PRN #14 tablet 07/19/19 [Percocet 5-325 mg Tablet] Cephalexin [Keflex] 500 mg PO Q6H #20 capsule 08/04/19 Oxycodone HCl/Acetaminophen 1 each PO Q4H PRN #20 tablet 08/04/19 [Percocet 7.5-325 mg Tablet] dexAMETHasone [Decadron] 4 mg PO DAILY #5 tablet 08/04/19 Oxycodone HCl/Acetaminophen 1 each PO Q4H PRN #15 tablet 11/27/19 [Percocet 7.5-325 mg Tablet] Promethazine [Phenergan] 25 mg PO Q6H PRN #20 tab 11/27/19 Ciprofloxacin HCl [Cipro] 500 mg PO BID #20 tablet 02/21/20 Oxycodone HCl/Acetaminophen 1 - 2 each PO Q6H PRN #14 tablet 02/21/20 [Percocet 5-325 mg Tablet] - Allergies Allergies/Adverse Reactions: Allergies Allergy/AdvReac Type Severity Reaction Status Date / Time meperidine HCl * AdvReac Unknown family hx Verified 11/27/19 09:35 [From Demerol] of cardiac arrest ondansetron [From Zofran] AdvReac Nausea Verified 02/21/20 18:16 seasonal allergies Allergy Unknown Uncoded 11/27/19 09:35 - Social History Does the pt smoke?: No Smoking Status: Never smoker Does the pt drink ETOH?: No Does the pt have substance abuse?: No - Immunizations Immunizations are current?: Yes - POLST Patient has POLST: No PD ED PE NORMAL - Vitals Vital signs reviewed: Yes - General General: Alert and oriented X 3, No acute distress - Abdomen Abdomen: Normal bowel sounds, Soft, Non tender - Back Back: No CVA TTP - Extremities Extremities: No edema, No calf tenderness / cord - Neuro Neuro: Alert and oriented X 3, Normal speech Results - Vitals Vitals: Vital Signs - 24 hr 02/21/20 02/21/20 02/21/20 18:12 18:51 20:42 Temperature 36.6 C 36.6 C Heart Rate 99 95 82 Respiratory 18 20 20 Rate Blood Pressure 150/96 H 172/89 H 147/87 H O2 Saturation 98 100 97 02/21/20 23:01 Temperature 36.4 C L Heart Rate 77 Respiratory 16 Rate Blood Pressure 125/87 H O2 Saturation 98 Oxygen O2 Source Room air - Labs Labs: Laboratory Tests 02/21/20 02/21/20 02/21/20 18:43 18:43 18:55 WBC 6.2 RBC 5.18 Hgb 15.0 Hct 46.4 MCV 89.6 MCH 29.0 MCHC 32.3 RDW 13.1 Plt Count 270 MPV 10.7 Neut # (Auto) 3.2 Lymph # (Auto) 2.4 [place] # (Auto) 0.4 Eos # (Auto) 0.2 Baso # (Auto) 0.0 Absolute Nucleated RBC 0.00 Nucleated RBC % 0.0 Sodium 141 Potassium 3.8 Chloride 104 Carbon Dioxide 23 Anion Gap 14.0 H BUN 12 Creatinine 0.9 Estimated GFR (MDRD) 69 L Glucose 125 H Calcium 8.8 Total Bilirubin 0.3 AST 22 ALT 22 Alkaline Phosphatase 97 Total Protein 7.2 Albumin 3.7 Globulin 3.5 Albumin/Globulin Ratio 1.1 Lipase 28 Urine Color YELLOW Urine Clarity HAZY Urine pH 6.0 Ur Specific [place] >=1.030 H Urine Protein 30 H Urine Glucose (UA) NEGATIVE Urine Ketones NEGATIVE Urine Occult Blood SMALL H Urine Nitrite POSITIVE H Urine Bilirubin NEGATIVE Urine Urobilinogen 1 (NORMAL) Ur Leukocyte Esterase SMALL H Urine RBC 0-5 Urine WBC >25 H Ur Squamous Epith Cells MOD Squamous H Urine Bacteria Many H Urine Mucus Ur Microscopic Review Urine Culture Comments NOT INDICATED Urine HCG, Qual NEGATIVE 02/21/20 02/21/20 19:52 21:06 WBC RBC Hgb Hct MCV MCH MCHC RDW Plt Count MPV Neut # (Auto) Lymph # (Auto) [place] # (Auto) Eos # (Auto) Baso # (Auto) Absolute Nucleated RBC Nucleated RBC % Sodium Potassium Chloride Carbon Dioxide Anion Gap BUN Creatinine Estimated GFR (MDRD) Glucose Calcium Total Bilirubin AST ALT Alkaline Phosphatase Total Protein Albumin Globulin Albumin/Globulin Ratio Lipase Urine Color YELLOW YELLOW Urine Clarity HAZY CLEAR Urine pH 5.5 5.5 Ur Specific [place] >=1.030 H >=1.030 H Urine Protein 30 H 30 H Urine Glucose (UA) NEGATIVE NEGATIVE Urine Ketones TRACE NEGATIVE Urine Occult Blood TRACE-INTA TRACE-INTA Urine Nitrite POSITIVE H POSITIVE H Urine Bilirubin NEGATIVE NEGATIVE Urine Urobilinogen 1 (NORMAL) 1 (NORMAL) Ur Leukocyte Esterase MODERATE H TRACE H Urine RBC 0-5 0-5 Urine WBC >25 H 6-10 H Ur Squamous Epith Cells MOD Squamous H RARE Squamous Urine Bacteria Many H Few Urine Mucus Moderate Strands Ur Microscopic Review INDICATED INDICATED Urine Culture Comments NOT INDICATED INDICATED Urine HCG, Qual - Rads (name of study) CT kub Radiology: Prelim report reviewed (Preliminary read from Dr. [facility], no ureterolith) PD MEDICAL DECISION MAKING - ED course Complexity details: reviewed old records (Prior CTs demonstrating ureteral lithiasis and recurrent pattern.) ED course: 39-year-old woman with history of recurrent renal colic presents with symptoms consistent with same. First two urinalyses were contaminated, But did show evidence of infection. This was followed with a cath UA which was persistently infected appearing. This brought up the specter of potentially an infected renal stone so a CT was done without evidence of ureterolithiasis suggesting that the root problem was not that but pyelonephritis. Departure - Departure Disposition: 01 Home, Self Care Clinical Impression: Pyelonephritis Condition: Good Record reviewed to determine appropriate education?: Yes Instructions: Pyelonephritis Dc Follow-Up: Carroll Mills MD [Physician No Access] - Prescriptions: Ciprofloxacin HCl [Cipro] 500 mg PO BID #20 tablet Oxycodone HCl/Acetaminophen [Percocet 5-325 mg Tablet] 1 - 2 each PO Q6H PRN #14 tablet PRN Reason: pain Comments: We will culture your urine, the results should be done in 48-72 hours. If an antibiotic change is necessary we will call you. Return if worse in the meantime, especially if you develop increasing flank pain, fevers, or cannot keep down the medication.
[2020-02-21 19:19] LABS: CLARITY,URINE HAZY (CLEAR)
[2020-02-21 19:26] LABS: BACTERIA,URINE Many /HPF (None Seen); HCG UR QUAL NEGATIVE; RBC,URINE 0-5 /HPF (0-5); SQUAMOUS EPITHELIAL CELL,UR MOD Squamous (<= Few)
[2020-02-21 20:08] LABS: GLUCOSE, URINE (UA) NEGATIVE (NEGATIVE); KETONES,URINE (UA) TRACE mg/dL (NEGATIVE); LEUKOCYTE ESTERASE, URINE MODERATE (NEGATIVE); NITRITE,URINE POSITIVE (NEGATIVE); OCCULT BLOOD,URINE TRACE-INTA (NEGATIVE); PH,URINE 5.5 PH (5.0-7.5); PROTEIN,URINE 30 mg/dL (NEGATIVE); UROBILINOGEN,URINE 1 (NORMAL) E.U./dL (NORMAL)
[2020-02-21 20:10] LABS: BILIRUBIN,URINE NEGATIVE (NEGATIVE); CLARITY,URINE HAZY (CLEAR); ICTOTEST,URINE NEGATIVE
[2020-02-21 20:20] LABS: BACTERIA,URINE Many /HPF (None Seen); RBC,URINE 0-5 /HPF (0-5); SQUAMOUS EPITHELIAL CELL,UR MOD Squamous (<= Few)
[2020-02-21 21:13] LABS: GLUCOSE, URINE (UA) NEGATIVE (NEGATIVE); KETONES,URINE (UA) NEGATIVE (NEGATIVE); LEUKOCYTE ESTERASE, URINE TRACE (NEGATIVE); NITRITE,URINE POSITIVE (NEGATIVE); OCCULT BLOOD,URINE TRACE-INTA (NEGATIVE); PH,URINE 5.5 PH (5.0-7.5); PROTEIN,URINE 30 mg/dL (NEGATIVE); UROBILINOGEN,URINE 1 (NORMAL) E.U./dL (NORMAL)
[2020-02-21 21:14] LABS: BILIRUBIN,URINE NEGATIVE (NEGATIVE); CLARITY,URINE CLEAR (CLEAR); ICTOTEST,URINE NEGATIVE
[2020-02-21 21:27] LABS: BACTERIA,URINE Few /HPF (None Seen); MUCUS,URINE Moderate Strands; RBC,URINE 0-5 /HPF (0-5); SQUAMOUS EPITHELIAL CELL,UR RARE Squamous (<= Few)
[2020-02-21 23:02] VITALS: BP 125/87
[2020-02-21] MEDS ORDERED: oxyCODONE/ACET 5/325 Prepack 4 PO STA (23:17)
[2020-02-21] MEDS ORDERED: CIPROFLOXACIN 250 MG TABLET PO STA (23:17)
--- NOTE | 2020-02-22 08:22 | CT Report ---
PROCEDURE: Abdomen/Pelvis WO INDICATIONS: Renal colic TECHNIQUE: Noncontrast 5 mm thick sections acquired from the diaphragms to the symphysis. 5 mm coronal and sagi ttal reformats were then performed. For radiation dose reduction, the following was used: automated exposure control, adjustment of mA and/or kV according to patient size. COMPARISON: None. FINDINGS: Image quality: Highly limited by patient body habitus. In particular, the pelvis is not well evaluate d due to photon starvation artifact. Nondiagnostic evaluation of the pelvic viscera including the uri nary bladder, uterus, ovaries, and the pelvic portions of the intestinal tract. ABDOMEN: Lung bases: Lung bases are clear. Heart size is normal. Solid organs: Grossly unremarkable liver and spleen. Gallbladder appears abnormally distended. There is no radiopaque gallstone. No obvious CT features of cholecystitis such as wall thickening or perich olecystic fluid/fat stranding. Grossly unremarkable unenhanced pancreas, evaluation limited by lack o f IV contrast and streak artifact. No adrenal mass. There are small bilateral renal calculi. No perin ephric fat stranding. No ureteral calculus. No findings of hydronephrosis or hydroureter. Peritoneum and bowel: Unenhanced bowel loops demonstrate normal wall thickness and caliber. No free fluid or air. Nodes and vessels: No retroperitoneal or mesenteric adenopathy by size criteria. Aorta and inferior vena cava are normal in caliber. PELVIS: Nondiagnostic evaluation of the pelvic viscera secondary to morbid obesity and the related ph oton starvation artifact. There could certainly be a bladder or distal ureteral calculus which is occ ult on this examination due to the artifact. Osseous structures of the pelvis are intact. IMPRESSION: Limited evaluation due to patient body habitus and lack of IV contrast. Distal ureters and urinary bl adder are not evaluated due to the degree of artifact. Multiple nonobstructing bilateral renal calculi, none measuring greater than 5 mm. No evidence of hydroureter or hydronephrosis within the limitations of the exam. Subjectively overdistended gallbladder, without definite CT features of cholecystitis. Correlate for any clinical evidence of cholecystitis or biliary tract obstruction. Reviewed by: William Moore MD on 02/22/2020 8:21 AM PDT Approved by: William Moore MD on 02/22/2020 8:21 AM PDT Station ID: [id number]
== END 2020-02-21 23:34 | disposition home or self-care (01) ==
LOC: ED 18:07
DX: N12 Tubulo-interstitial nephritis, not specified as acute or chronic (principal); Z87.442 Personal history of urinary calculi
CPT/HCPCS: 36415; 51701; 74176; 80053; 81001; 81025; 83690; 85025; 87086; 87181; 96361; 96374; 96376; 99283; 99284; A9270; J1170; 81003

== ENCOUNTER 2020-03-16 08:24 | Emergency (ER) | payer BC, OTHER ==
--- NOTE | 2020-03-16 08:47 | ED Physician Documentation ---
PD HPI ABD PAIN - Stated complaint Stated Complaint: RT SIDE FLANK PX - Chief complaint Chief Complaint: Abd Pain - History obtained from History obtained from: Patient - History of Present Illness Timing - onset: Yesterday Timing - details: Abrupt onset, Still present Quality: Cramping, Pain Location: RLQ Radiation: Right flank Improved by: Position (somewhat better lying on her back.). No: Eating, Laying still Worsened by: No: Eating, Moving, Breathing Associated symptoms: Nausea. No: Fever, Vomiting, Diarrhea, Dysuria (had some 2 weeks ago and Dx UTI but states that improved with abx.) Similar symptoms before: Diagnosis (current pain feels similar to kidney stoen she has had in the past. Has passed most, but did need lithotripsy once.) Recently seen: Emergency Dept Review of Systems Constitutional: denies: Fever, Chills, Myalgias Cardiac: denies: Chest pain / pressure, Palpitations Respiratory: denies: Dyspnea, Cough GI: reports: Abdominal Pain (RLQ to right flank.), Nausea. 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 : Kidney stones HEENT: Chronic sinusitis Psych: None Musculoskeletal: None Derm: None - Past Surgical History Past Surgical History: Yes General: Appendectomy, Other /MACHINE RIGGER: Other - Present Medications Home Medications: Ambulatory Orders Medication Instructions Recorded Confirmed traMADol [Ultram] 50 mg PO Q4-6H 10/08/16 03/23/19 Cyclobenzaprine [Flexeril] 10 mg PO TID PRN 06/09/17 03/23/19 oxyCODONE/ACET 5/325 [Percocet 5 1 - 2 tab PO Q4-6H PRN #15 tablet 06/09/17 03/23/19 mg/325 mg] Gabapentin 300 mg PO DAILY 03/23/19 03/23/19 HYDROmorphone [Dilaudid] 2 - 4 mg PO Q4H PRN #10 tablet 03/23/19 Ibuprofen [Motrin] 800 mg PO Q8H PRN #30 tablet 07/19/19 Ondansetron Odt [Zofran] 4 mg TL Q6H PRN #10 tablet 07/19/19 Oxycodone HCl/Acetaminophen 1 - 2 each PO Q6H PRN #14 tablet 07/19/19 [Percocet 5-325 mg Tablet] Cephalexin [Keflex] 500 mg PO Q6H #20 capsule 08/04/19 Oxycodone HCl/Acetaminophen 1 each PO Q4H PRN #20 tablet 08/04/19 [Percocet 7.5-325 mg Tablet] dexAMETHasone [Decadron] 4 mg PO DAILY #5 tablet 08/04/19 Oxycodone HCl/Acetaminophen 1 each PO Q4H PRN #15 tablet 11/27/19 [Percocet 7.5-325 mg Tablet] Promethazine [Phenergan] 25 mg PO Q6H PRN #20 tab 11/27/19 Ciprofloxacin HCl [Cipro] 500 mg PO BID #20 tablet 02/21/20 Oxycodone HCl/Acetaminophen 1 - 2 each PO Q6H PRN #14 tablet 02/21/20 [Percocet 5-325 mg Tablet] Oxycodone HCl/Acetaminophen 1 each PO Q4H PRN #20 tablet 03/16/20 [Percocet 7.5-325 mg Tablet] - Allergies Allergies/Adverse Reactions: Allergies Allergy/AdvReac Type Severity Reaction Status Date / Time acetaminophen [From Lortab] Allergy Unknown Verified 03/16/20 08:40 ciprofloxacin [From Cipro] Allergy Unknown Verified 03/16/20 08:40 hydrocodone [From Lortab] Allergy Unknown Verified 03/16/20 08:40 meperidine HCl * AdvReac Unknown family hx Verified 03/16/20 08:40 [From Demerol] of cardiac arrest ondansetron [From Zofran] AdvReac Nausea Verified 03/16/20 08:40 seasonal allergies Allergy Unknown Uncoded 03/16/20 08:40 - Social History Does the pt smoke?: No Smoking Status: Never smoker Does the pt drink ETOH?: No Does the pt have substance abuse?: No - Immunizations Immunizations are current?: Yes - POLST Patient has POLST: No PD ED PE NORMAL - Vitals Vital signs reviewed: Yes - General General: Alert and oriented X 3, Well developed/nourished - Cardiac Cardiac: RRR, No murmur - Respiratory Respiratory: Clear bilaterally - Abdomen Abdomen: Normal bowel sounds, Soft, Non distended, No organomegaly, Other (some tenderness without guarding nor percussion tender at right lower abd. Pt very obese. Some right CVA tender noted as well. ) - Derm Derm: Normal color, Warm and dry, No rash - Extremities Extremities: No edema, No calf tenderness / cord - Neuro Neuro: Alert and oriented X 3, No motor deficit, No sensory deficit, Normal speech Results - Vitals Vitals: Vital Signs - 24 hr 03/16/20 03/16/20 08:38 12:04 Temperature 36.7 C Heart Rate 100 79 Respiratory 20 18 Rate Blood Pressure 177/94 H 141/86 H O2 Saturation 97 97 Oxygen O2 Source Room air - Labs Labs: Laboratory Tests 03/16/20 08:45 Urine Color YELLOW Urine Clarity SL. CLOUDY Urine pH 5.5 Ur Specific [place] >=1.030 H Urine Protein TRACE Urine Glucose (UA) NEGATIVE Urine Ketones NEGATIVE Urine Occult Blood SMALL H Urine Nitrite NEGATIVE Urine Bilirubin NEGATIVE Urine Urobilinogen 0.2 (NORMAL) Ur Leukocyte Esterase NEGATIVE Urine RBC 6-10 H Urine WBC 6-10 H Ur Squamous Epith Cells MANY Squamous H Urine Bacteria Few Ur Microscopic Review INDICATED Urine Culture Comments NOT INDICATED PD MEDICAL DECISION MAKING - ED course Complexity details: reviewed old records (CT abd from January (a month ago) showed there to be a 2 mm and 4 mm stones in the kidney, so shoud not be passing a large stone, assuming that is cause of the pain. ), considered differential, d/w patient Departure - Departure Disposition: 01 Home, Self Care Clinical Impression: Right sided abdominal pain, Renal colic Clinical Impression: (Ruled Out): Cystitis Condition: Stable Record reviewed to determine appropriate education?: Yes Follow-Up: Tarsha Cisneros PA-C [Primary Care Provider] - Prescriptions: Oxycodone HCl/Acetaminophen [Percocet 7.5-325 mg Tablet] 1 each PO Q4H PRN #20 tablet PRN Reason: Pain Comments: Stay well-hydrated. Continue your meloxicam. Continue your nausea medicines if needed. Add Percocet 7.5 mg every 3-4 hours as needed for pain. Recheck if not improved well over the next 2 to 3 days and return sooner if worse. No signs of urinary infection at this time. We will presume passing a small stone. Your CT scan from January showed only 2 and 4 mm stone So there should not be a larger one trying to pass. Discharge Date/Time: 03/16/20 12:14
[2020-03-16] MEDS ORDERED: HYDROmorphone 1 MG/ML CARPUJECT IVP STA ×2 (09:05→11:21)
[2020-03-16] MEDS ORDERED: ONDANSETRON 4 MG/2 ML VIAL IVP STA (09:05)
[2020-03-16] MEDS ORDERED: KETOROLAC 30 MG/ML VIAL IVP STA (09:05)
[2020-03-16 09:19] LABS: BILIRUBIN,URINE NEGATIVE (NEGATIVE); GLUCOSE, URINE (UA) NEGATIVE (NEGATIVE); KETONES,URINE (UA) NEGATIVE (NEGATIVE); LEUKOCYTE ESTERASE, URINE NEGATIVE (NEGATIVE); NITRITE,URINE NEGATIVE (NEGATIVE); OCCULT BLOOD,URINE SMALL (NEGATIVE); PH,URINE 5.5 PH (5.0-7.5); PROTEIN,URINE TRACE mg/dL (NEGATIVE); UROBILINOGEN,URINE 0.2 (NORMAL) E.U./dL (NORMAL)
[2020-03-16 09:30] LABS: CLARITY,URINE SL. CLOUDY (CLEAR)
[2020-03-16 09:31] LABS: BACTERIA,URINE Few /HPF (None Seen); SQUAMOUS EPITHELIAL CELL,UR MANY Squamous (<= Few)
[2020-03-16] MEDS ORDERED: ACETAMINOPHEN 325 MG TABLET PO STA (11:21)
[2020-03-16 12:05] VITALS: BP 141/86
== END 2020-03-16 12:14 | disposition home or self-care (01) ==
LOC: ED 08:24
DX: N23 Unspecified renal colic (principal)
CPT/HCPCS: 81001; 96374; 96376; 99283; 99284; A9270; J1170; 81003; 87086

== ENCOUNTER 2020-05-04 19:16 | Emergency (ER) | payer BC ==
--- NOTE | 2020-05-04 19:30 | ED Physician Documentation ---
History of Present Illness - Stated complaint Stated Complaint: FLANK PX, RT - Chief complaint Chief Complaint: Back Pain - History obtained from History obtained from: Patient - Additonal information Additional information: The patient is a 39-year-old female with a history of kidney stones presents with right-sided flank pain without gross hematuria or fevers. Review of Systems Constitutional: reports: Reviewed and negative Eyes: reports: Reviewed and negative Ears: reports: Reviewed and negative Nose: reports: Reviewed and negative Throat: reports: Reviewed and negative Cardiac: reports: Reviewed and negative Respiratory: reports: Reviewed and negative GI: reports: Reviewed and negative : reports: Other (Right-sided flank pain) Skin: reports: Reviewed and negative Musculoskeletal: reports: Reviewed and negative Neurologic: reports: Reviewed and negative Psychiatric: reports: Reviewed and negative Endocrine: reports: Reviewed and negative Immunocompromised: reports: Reviewed and negative PD PAST MEDICAL HISTORY - Past Medical History Cardiovascular: None Respiratory: Sleep apnea, Other Neuro: None Endocrine/Autoimmune: None GI: Other DYE RANGE TENDER: 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 : Kidney stones HEENT: Chronic sinusitis Psych: None Musculoskeletal: None Derm: None - Past Surgical History Past Surgical History: Yes General: Appendectomy, Other /DYE RANGE TENDER: Other - Present Medications Home Medications: Ambulatory Orders Medication Instructions Recorded Confirmed traMADol [Ultram] 50 mg PO Q4-6H 10/08/16 03/23/19 Cyclobenzaprine [Flexeril] 10 mg PO TID PRN 06/09/17 03/23/19 oxyCODONE/ACET 5/325 [Percocet 5 1 - 2 tab PO Q4-6H PRN #15 tablet 06/09/17 03/23/19 mg/325 mg] Gabapentin 300 mg PO DAILY 03/23/19 03/23/19 HYDROmorphone [Dilaudid] 2 - 4 mg PO Q4H PRN #10 tablet 03/23/19 Ibuprofen [Motrin] 800 mg PO Q8H PRN #30 tablet 07/19/19 Ondansetron Odt [Zofran] 4 mg TL Q6H PRN #10 tablet 07/19/19 Oxycodone HCl/Acetaminophen 1 - 2 each PO Q6H PRN #14 tablet 07/19/19 [Percocet 5-325 mg Tablet] Cephalexin [Keflex] 500 mg PO Q6H #20 capsule 08/04/19 Oxycodone HCl/Acetaminophen 1 each PO Q4H PRN #20 tablet 08/04/19 [Percocet 7.5-325 mg Tablet] dexAMETHasone [Decadron] 4 mg PO DAILY #5 tablet 08/04/19 Oxycodone HCl/Acetaminophen 1 each PO Q4H PRN #15 tablet 11/27/19 [Percocet 7.5-325 mg Tablet] Promethazine [Phenergan] 25 mg PO Q6H PRN #20 tab 11/27/19 Ciprofloxacin HCl [Cipro] 500 mg PO BID #20 tablet 02/21/20 Oxycodone HCl/Acetaminophen 1 - 2 each PO Q6H PRN #14 tablet 02/21/20 [Percocet 5-325 mg Tablet] Oxycodone HCl/Acetaminophen 1 each PO Q4H PRN #20 tablet 03/16/20 [Percocet 7.5-325 mg Tablet] Oxycodone HCl/Acetaminophen 1 each PO Q6HR PRN #10 tablet 05/04/20 [Percocet 7.5-325 mg Tablet] - Allergies Allergies/Adverse Reactions: Allergies Allergy/AdvReac Type Severity Reaction Status Date / Time acetaminophen [From Lortab] Allergy Unknown Verified 05/04/20 19:23 ciprofloxacin [From Cipro] Allergy Unknown Verified 05/04/20 19:23 hydrocodone [From Lortab] Allergy Unknown Verified 05/04/20 19:23 meperidine HCl * AdvReac Unknown family hx Verified 05/04/20 19:23 [From Demerol] of cardiac arrest ondansetron [From Zofran] AdvReac Nausea Verified 05/04/20 19:23 seasonal allergies Allergy Unknown Uncoded 05/04/20 19:23 - Social History Does the pt smoke?: No Smoking Status: Never smoker Does the pt drink ETOH?: No Does the pt have substance abuse?: No - Immunizations Immunizations are current?: Yes - POLST Patient has POLST: No PD ED PE NORMAL - Vitals Vital signs reviewed: Yes - General General: Alert and oriented X 3, No acute distress, Well developed/nourished - HEENT HEENT: PERRL - Neck Neck: Supple, no meningeal sign - Cardiac Cardiac: RRR, No murmur - Respiratory Respiratory: Clear bilaterally - Abdomen Abdomen: Normal bowel sounds, Soft, Non tender, Non distended - Back Back: Other (Positive for right-sided CVA tenderness to palpation) - Derm Derm: Warm and dry - Extremities Extremities: No deformity - Neuro Neuro: Alert and oriented X 3 - Psych Psych: Normal mood, Normal affect Results - Vitals Vitals: Vital Signs - 24 hr 05/04/20 05/04/20 05/04/20 19:20 21:22 22:09 Temperature 36 C L Heart Rate 99 78 77 Respiratory 18 18 18 Rate Blood Pressure 146/102 H 151/91 H 151/91 H O2 Saturation 99 100 99 Oxygen O2 Source Room air - Labs Labs: Laboratory Tests 05/04/20 05/04/20 05/04/20 20:03 20:03 20:03 WBC 8.2 RBC 4.57 Hgb 13.0 Hct 40.3 MCV 88.2 MCH 28.4 MCHC 32.3 RDW 13.2 Plt Count 249 MPV 11.3 H Neut # (Auto) 5.5 Lymph # (Auto) 1.9 [place] # (Auto) 0.6 Eos # (Auto) 0.1 Baso # (Auto) 0.0 Absolute Nucleated RBC 0.00 Nucleated RBC % 0.0 PT 14.6 H INR 1.3 H APTT > 240.0 H* Sodium 142 Potassium 3.4 L Chloride 110 Carbon Dioxide 20 L Anion Gap 12.0 BUN 11 Creatinine 0.9 Estimated GFR (MDRD) 69 L Glucose 103 H Lactic Acid Calcium 8.6 Total Bilirubin 0.5 AST 15 ALT 18 Alkaline Phosphatase 89 Total Protein 7.0 Albumin 3.7 Globulin 3.3 Albumin/Globulin Ratio 1.1 Lipase 25 Serum HCG, Qual Urine Color Urine Clarity Urine pH Ur Specific [place] Urine Protein Urine Glucose (UA) Urine Ketones Urine Occult Blood Urine Nitrite Urine Bilirubin Urine Urobilinogen Ur Leukocyte Esterase Urine RBC Urine WBC Ur Squamous Epith Cells Urine Bacteria Urine Mucus Ur Microscopic Review Urine Culture Comments Urine HCG, Qual 05/04/20 05/04/20 05/04/20 20:03 20:03 20:28 WBC RBC Hgb Hct MCV MCH MCHC RDW Plt Count MPV Neut # (Auto) Lymph # (Auto) [place] # (Auto) Eos # (Auto) Baso # (Auto) Absolute Nucleated RBC Nucleated RBC % PT INR APTT Sodium Potassium Chloride Carbon Dioxide Anion Gap BUN Creatinine Estimated GFR (MDRD) Glucose Lactic Acid 1.1 Calcium Total Bilirubin AST ALT Alkaline Phosphatase Total Protein Albumin Globulin Albumin/Globulin Ratio Lipase Serum HCG, Qual NEGATIVE Urine Color YELLOW Urine Clarity CLEAR Urine pH 6.0 Ur Specific [place] >=1.030 H Urine Protein 30 H Urine Glucose (UA) NEGATIVE Urine Ketones NEGATIVE Urine Occult Blood SMALL H Urine Nitrite NEGATIVE Urine Bilirubin NEGATIVE Urine Urobilinogen 1 (NORMAL) Ur Leukocyte Esterase NEGATIVE Urine RBC 0-5 Urine WBC 0-3 Ur Squamous Epith Cells MANY Squamous H Urine Bacteria Rare Urine Mucus Few Strands Ur Microscopic Review INDICATED Urine Culture Comments NOT INDICATED Urine HCG, Qual NEGATIVE PD MEDICAL DECISION MAKING - ED course Complexity details: reviewed results, re-evaluated patient, considered differential, d/w patient ED course: 39-year-old female with history of recurrent kidney stones presents with right- sided flank pain with presence of blood on urinalysis no fever CBC and BMP are unremarkable. I did recommend CT scan to look for presence of obstructing stone however the patient is refusing she does have medical decision-making capability and capacity she was given IV fluids as well as IV Toradol and IV analgesia. Patient was provided prepack of analgesia to take home and short-term prescription of analgesia and recommend to follow-up with her primary care provider also given a referral to urology. Departure - Departure Disposition: 01 Home, Self Care Clinical Impression: Renal colic on right side Condition: Stable Instructions: ED Stone Renal W Colic Follow-Up: Tarsha Cisneros PA-C [Primary Care Provider] - Tomorrow Latoya Cronin MD [Physician No Access] - Prescriptions: Oxycodone HCl/Acetaminophen [Percocet 7.5-325 mg Tablet] 1 each PO Q6HR PRN #10 tablet PRN Reason: Pain Comments: please follow up with your primary care provider tomorrow. Call the urologist tomorrow to schedule follow up. Discharge Date/Time: 05/04/20 22:36
[2020-05-04] MEDS ORDERED: ONDANSETRON 4 MG/2 ML VIAL IVP STA (19:46)
[2020-05-04] MEDS ORDERED: KETOROLAC 30 MG/ML VIAL IVP STA (19:46)
[2020-05-04] MEDS ORDERED: SODIUM CHLORIDE 0.9% 1,000 ML IV STA (19:46)
[2020-05-04] MEDS ORDERED: HYDROmorphone 0.5 MG/0.5 ML SYRINGE IVP STA (19:46)
[2020-05-04 20:11] LABS: BASOPHILS % (AUTO) 0.1 %; EOSINOPHILS # (AUTO) 0.1 10^3/uL (0.0-0.7); EOSINOPHILS % (AUTO) 0.6 %; LYMPHOCYTES # (AUTO) 1.9 10^3/uL (1.5-3.5); LYMPHOCYTES % (AUTO) 23.7 %; MEAN CORPUSCULAR HEMOGLOBIN 28.4 pg (27.0-31.0); MEAN CORPUSCULAR HGB CONC 32.3 g/dL (32.0-36.0); MEAN CORPUSCULAR VOLUME 88.2 fL (81.0-99.0); MEAN PLATELET VOLUME 11.3 fL (7.9-10.8); MONOCYTES # (AUTO) 0.6 10^3/uL (0.0-1.0); MONOCYTES % (AUTO) 7.4 %; NEUTROPHILS # (AUTO) 5.5 10^3/uL (1.5-6.6); PLT - PLATELET COUNT 249 10^3/uL (130-450); RED BLOOD COUNT 4.57 10^6/uL (4.20-5.40); RED CELL DISTRIBUTION WIDTH 13.2 % (12.0-15.0); WHITE BLOOD COUNT 8.2 x10^3/uL (4.8-10.8)
[2020-05-04 20:13] LABS: INR 1.3 (0.8-1.2); PT - PROTHROMBIN TIME 14.6 secs (9.9-12.6)
[2020-05-04 20:22] LABS: ALBUMIN 3.7 g/dL (3.2-5.5); ALBUMIN/GLOBULIN RATIO 1.1 (1.0-2.2); BILIRUBIN,TOTAL 0.5 mg/dL (0.2-1.0); CALCIUM 8.6 mg/dL (8.5-10.3); CREATININE 0.9 mg/dL (0.4-1.0)
[2020-05-04 20:33] LABS: PARTIAL THROMBOPLASTIN TIME > 240.0 secs (24.9-33.3)
[2020-05-04 20:38] LABS: BILIRUBIN,URINE NEGATIVE (NEGATIVE); CLARITY,URINE CLEAR (CLEAR); GLUCOSE, URINE (UA) NEGATIVE (NEGATIVE); KETONES,URINE (UA) NEGATIVE (NEGATIVE); LEUKOCYTE ESTERASE, URINE NEGATIVE (NEGATIVE); NITRITE,URINE NEGATIVE (NEGATIVE); OCCULT BLOOD,URINE SMALL (NEGATIVE); PROTEIN,URINE 30 mg/dL (NEGATIVE); UROBILINOGEN,URINE 1 (NORMAL) E.U./dL (NORMAL)
[2020-05-04 20:39] LABS: HCG UR QUAL NEGATIVE
[2020-05-04 20:44] LABS: BACTERIA,URINE Rare /HPF (None Seen); MUCUS,URINE Few Strands; RBC,URINE 0-5 /HPF (0-5); SQUAMOUS EPITHELIAL CELL,UR MANY Squamous (<= Few)
[2020-05-04 20:44] LABS: HCG,QUALITATIVE BLOOD NEGATIVE
[2020-05-04 21:26] VITALS: BP 151/91
[2020-05-04] MEDS ORDERED: oxyCODONE/ACET 5/325 Prepack 4 PO STA (22:21)
== END 2020-05-04 22:36 | disposition home or self-care (01) ==
LOC: ED 19:16
DX: N23 Unspecified renal colic (principal)
CPT/HCPCS: 36415; 80053; 81001; 81025; 83605; 83690; 84703; 85025; 85610; 85730; 96374; 99283; 99284; J1170; 81003; 87086

== ENCOUNTER 2020-07-25 07:26 | Emergency (ER) | payer BC, OTHER ==
[2020-07-25] MEDS ORDERED: ONDANSETRON 4 MG/2 ML VIAL IVP STA (08:13)
[2020-07-25] MEDS ORDERED: KETOROLAC 30 MG/ML VIAL IVP STA (08:13)
[2020-07-25 08:15] LABS: BASOPHILS % (AUTO) 0.3 %; EOSINOPHILS # (AUTO) 0.1 10^3/uL (0.0-0.7); HGB - HEMOGLOBIN 13.5 g/dL (12.0-16.0); LYMPHOCYTES # (AUTO) 2.4 10^3/uL (1.5-3.5); LYMPHOCYTES % (AUTO) 36.8 %; MEAN CORPUSCULAR HEMOGLOBIN 29.5 pg (27.0-31.0); MEAN CORPUSCULAR HGB CONC 32.6 g/dL (32.0-36.0); MEAN CORPUSCULAR VOLUME 90.4 fL (81.0-99.0); MEAN PLATELET VOLUME 10.2 fL (7.9-10.8); MONOCYTES # (AUTO) 0.5 10^3/uL (0.0-1.0); MONOCYTES % (AUTO) 7.2 %; NEUTROPHILS # (AUTO) 3.5 10^3/uL (1.5-6.6); NEUTROPHILS % (AUTO) 53.2 %; PLT - PLATELET COUNT 205 10^3/uL (130-450); RED BLOOD COUNT 4.58 10^6/uL (4.20-5.40); RED CELL DISTRIBUTION WIDTH 13.9 % (12.0-15.0); WHITE BLOOD COUNT 6.6 x10^3/uL (4.8-10.8)
[2020-07-25] MEDS ORDERED: LACTATED RINGERS 1,000 ML IV STA (08:21)
--- NOTE | 2020-07-25 08:21 | ED Physician Documentation ---
PD HPI ABD PAIN - Stated complaint Stated Complaint: L SIDE PX - Chief complaint Chief Complaint: Abd Pain - History obtained from History obtained from: Patient - Additional information Additional information: 39-year-old woman with past medical history of recurrent kidney stones, most recent passed 1 month ago, 2019 nephrostomy, presents with left flank pain 40 minutes prior to arrival associated with nausea, radiating to the front, 8 out of 10, constant, sudden onset. Denies fever, dysuria, increased frequency, hematuria. 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 : Kidney stones HEENT: Chronic sinusitis Psych: None Musculoskeletal: None Derm: None - Past Surgical History Past Surgical History: Yes General: Appendectomy, Other /ADVANCED PRACTICE PROFESSIONAL: Other - Present Medications Home Medications: Ambulatory Orders Medication Instructions Recorded Confirmed traMADol [Ultram] 50 mg PO Q4-6H 10/08/16 03/23/19 Cyclobenzaprine [Flexeril] 10 mg PO TID PRN 06/09/17 03/23/19 oxyCODONE/ACET 5/325 [Percocet 5 1 - 2 tab PO Q4-6H PRN #15 tablet 06/09/17 03/23/19 mg/325 mg] Gabapentin 300 mg PO DAILY 03/23/19 03/23/19 HYDROmorphone [Dilaudid] 2 - 4 mg PO Q4H PRN #10 tablet 03/23/19 Ibuprofen [Motrin] 800 mg PO Q8H PRN #30 tablet 07/19/19 Ondansetron Odt [Zofran] 4 mg TL Q6H PRN #10 tablet 07/19/19 Oxycodone HCl/Acetaminophen 1 - 2 each PO Q6H PRN #14 tablet 07/19/19 [Percocet 5-325 mg Tablet] Cephalexin [Keflex] 500 mg PO Q6H #20 capsule 08/04/19 Oxycodone HCl/Acetaminophen 1 each PO Q4H PRN #20 tablet 08/04/19 [Percocet 7.5-325 mg Tablet] dexAMETHasone [Decadron] 4 mg PO DAILY #5 tablet 08/04/19 Oxycodone HCl/Acetaminophen 1 each PO Q4H PRN #15 tablet 11/27/19 [Percocet 7.5-325 mg Tablet] Promethazine [Phenergan] 25 mg PO Q6H PRN #20 tab 11/27/19 Ciprofloxacin HCl [Cipro] 500 mg PO BID #20 tablet 02/21/20 Oxycodone HCl/Acetaminophen 1 - 2 each PO Q6H PRN #14 tablet 02/21/20 [Percocet 5-325 mg Tablet] Oxycodone HCl/Acetaminophen 1 each PO Q4H PRN #20 tablet 03/16/20 [Percocet 7.5-325 mg Tablet] Oxycodone HCl/Acetaminophen 1 each PO Q6HR PRN #10 tablet 05/04/20 [Percocet 7.5-325 mg Tablet] Oxycodone HCl/Acetaminophen 1 each PO Q6HR PRN 2 Days #8 tablet 07/25/20 [Percocet 10-325 mg Tablet] Tamsulosin HCl [Flomax] 0.4 mg PO AC 14 Days #14 cap.er.24h 07/25/20 - Allergies Allergies/Adverse Reactions: Allergies Allergy/AdvReac Type Severity Reaction Status Date / Time ciprofloxacin [From Cipro] Allergy Unknown Verified 07/25/20 07:35 hydrocodone [From Lortab] Allergy Unknown Verified 07/25/20 07:35 meperidine HCl * AdvReac Unknown family hx Verified 07/25/20 07:35 [From Demerol] of cardiac arrest seasonal allergies Allergy Unknown Uncoded 05/04/20 19:23 - Social History Does the pt smoke?: No Smoking Status: Never smoker Does the pt drink ETOH?: No Does the pt have substance abuse?: No - Immunizations Immunizations are current?: Yes - POLST Patient has POLST: No PD ED PE NORMAL - Vitals Vital signs reviewed: Yes - General General: Alert and oriented X 3 - HEENT HEENT: Atraumatic, PERRL, EOMI - Neck Neck: Supple, no meningeal sign - Cardiac Cardiac: RRR - Respiratory Respiratory: No respiratory distress, Clear bilaterally - Abdomen Abdomen: Non tender, Non distended - Female Female : Deferred - Rectal Rectal: Deferred - Back Back: Other (L CVA ttp) - Derm Derm: Normal color, No rash - Extremities Extremities: No deformity - Neuro Neuro: Alert and oriented X 3 - Psych Psych: Normal mood, Normal affect Results - Vitals Vitals: Vital Signs - 24 hr 07/25/20 07:35 Temperature 36.4 C L Heart Rate 91 Respiratory 20 Rate Blood Pressure 149/80 H O2 Saturation 100 Oxygen O2 Source Room air - Labs Labs: Laboratory Tests 07/25/20 07/25/20 07/25/20 08:06 08:06 08:35 WBC 6.6 RBC 4.58 Hgb 13.5 Hct 41.4 MCV 90.4 MCH 29.5 MCHC 32.6 RDW 13.9 Plt Count 205 MPV 10.2 Neut # (Auto) 3.5 Lymph # (Auto) 2.4 [place] # (Auto) 0.5 Eos # (Auto) 0.1 Baso # (Auto) 0.0 Absolute Nucleated RBC 0.00 Nucleated RBC % 0.0 Sodium 141 Potassium 3.7 Chloride 105 Carbon Dioxide 23 Anion Gap 13.0 BUN 12 Creatinine 0.8 Estimated GFR (MDRD) 79 L Glucose 92 Calcium 9.0 Total Bilirubin 0.7 AST 16 ALT 15 Alkaline Phosphatase 80 Total Protein 6.9 Albumin 3.5 Globulin 3.4 Albumin/Globulin Ratio 1.0 Lipase 29 Urine Color DARK YELLOW Urine Clarity CLEAR Urine pH 6.0 Ur Specific [place] >=1.030 H Urine Protein 100 H Urine Glucose (UA) NEGATIVE Urine Ketones NEGATIVE Urine Occult Blood LARGE H Urine Nitrite NEGATIVE Urine Bilirubin NEGATIVE Urine Urobilinogen 1 (NORMAL) Ur Leukocyte Esterase NEGATIVE Urine RBC TNTC H Urine WBC 6-10 H Ur Squamous Epith Cells MANY Squamous H Urine Bacteria Many H Ur Microscopic Review INDICATED Urine Culture Comments NOT INDICATED Urine HCG, Qual NEGATIVE PD MEDICAL DECISION MAKING - ED course Complexity details: reviewed results, re-evaluated patient, d/w patient ED course: 39-year-old woman with past medical history of frequent Kidney stones presents w [facility] similar symptoms today. Will obtain CT and evaluate. Symptomatic care. CT showed 8 mm obstructing UPJ stone with mild hydro-. Discussed with Dr. Chin at [facility] urology. No UTI on urinalysis. Plan to follow-up next week in clinic. Will send home with pain control and Flomax. Departure - Departure Disposition: 01 Home, Self Care Clinical Impression: Kidney calculus, Hydronephrosis, Flank pain, Hydronephrosis with obstructing calculus Condition: Good Instructions: Kidney Stones Prescriptions: Oxycodone HCl/Acetaminophen [Percocet 10-325 mg Tablet] 1 each PO Q6HR PRN 2 Days #8 tablet PRN Reason: Pain Tamsulosin HCl [Flomax] 0.4 mg PO AC 14 Days #14 cap.er.24h Comments: You have been seen in the emergency department for kidney stones. You have a left sided ureteral pelvic junction(UPJ) 8 mm stone that will require urology follow-up. I spoke with Dr. Chin who says that he will try to get you an appointment next week. In the meantime, stay well-hydrated, take Flomax and cristobal n medicine as needed. Return to the ED if you have a fever or burning pain with urination. Return for any new / worsening symptoms. Gaudencio Chin, DO [email or web address] Urology. . [facility]. Gaudencio Chin
[2020-07-25 08:25] LABS: ALBUMIN 3.5 g/dL (3.2-5.5); BILIRUBIN,TOTAL 0.7 mg/dL (0.2-1.0); CREATININE 0.8 mg/dL (0.4-1.0); TOTAL PROTEIN 6.9 g/dL (6.7-8.2)
[2020-07-25] MEDS ORDERED: HYDROmorphone 0.5 MG/0.5 ML SYRINGE IVP STA ×2 (08:41→09:56)
[2020-07-25 08:59] LABS: GLUCOSE, URINE (UA) NEGATIVE (NEGATIVE); KETONES,URINE (UA) NEGATIVE (NEGATIVE); LEUKOCYTE ESTERASE, URINE NEGATIVE (NEGATIVE); NITRITE,URINE NEGATIVE (NEGATIVE); OCCULT BLOOD,URINE LARGE (NEGATIVE); PROTEIN,URINE 100 mg/dL (NEGATIVE); UROBILINOGEN,URINE 1 (NORMAL) E.U./dL (NORMAL)
[2020-07-25 09:04] LABS: CLARITY,URINE CLEAR (CLEAR); HCG UR QUAL NEGATIVE
[2020-07-25 09:15] LABS: BILIRUBIN,URINE NEGATIVE (NEGATIVE); ICTOTEST,URINE NEGATIVE
--- NOTE | 2020-07-25 09:15 | CT Report ---
PROCEDURE: Abdomen/Pelvis WO INDICATIONS: kidney stones TECHNIQUE: Noncontrast 5 mm thick sections acquired from the diaphragms to the symphysis. 5 mm coronal and sagi ttal reformats were then performed. For radiation dose reduction, the following was used: automated exposure control, adjustment of mA and/or kV according to patient size. COMPARISON: None. FINDINGS: Image quality: Exam is very limited by patient body habitus. ABDOMEN: Lung bases: Included portions of the lung bases are clear. Urinary tract: Obstructing 8 mm calculus at the left UPJ with mild hydroureteronephrosis proximally. No additional urinary tract calculus identified, with caveat that the photon starvation due to patien t body habitus precludes visualization of the distal ureters and urinary bladder. Solid organs: Grossly unremarkable unenhanced liver, spleen, gallbladder, pancreas, and adrenal gland s. Peritoneum and bowel: Postsurgical changes of sleeve gastrectomy. No abnormally dilated or thickened loops of bowel. No obvious pericolonic or mesenteric inflammatory fat stranding. Nodes and vessels: No retroperitoneal or mesenteric adenopathy by size criteria. Aorta and inferior vena cava are normal in caliber. PELVIS: Very limited evaluation of the pelvis due to photon starvation from the combined effects of t he pelvic ring and patient body habitus. IMPRESSION: Obstructing 8 mm left UPJ calculus producing mild hydroureteronephrosis. Reviewed by: William Moore MD on 07/25/2020 9:13 AM PST Approved by: William Moore MD on 07/25/2020 9:13 AM PST Station ID: [id number]
[2020-07-25 09:33] LABS: RBC,URINE TNTC /HPF (0-5)
[2020-07-25 09:34] LABS: BACTERIA,URINE Many /HPF (None Seen); SQUAMOUS EPITHELIAL CELL,UR MANY Squamous (<= Few)
[2020-07-25 11:00] VITALS: BP 138/85
== END 2020-07-25 11:00 | disposition home or self-care (01) ==
LOC: ED 07:26
DX: N13.2 Hydronephrosis with renal and ureteral calculous obstruction (principal)
CPT/HCPCS: 74176; 80053; 81001; 81025; 83690; 85025; 96374; 96375; 96376; 99284; 99285; J1170; J7120; 36415; 81003; 87086

== ENCOUNTER 2020-08-08 11:52 | Emergency (ER) | payer BC ==
[2020-08-08 12:57] LABS: ALBUMIN 4.2 g/dL (3.2-5.5); ALBUMIN/GLOBULIN RATIO 1.1 (1.0-2.2); BILIRUBIN,TOTAL 0.4 mg/dL (0.2-1.0); CALCIUM 9.1 mg/dL (8.5-10.3); CREATININE 0.9 mg/dL (0.4-1.0); TOTAL PROTEIN 8.1 g/dL (6.7-8.2)
[2020-08-08] MEDS ORDERED: SODIUM CHLORIDE 0.9% 1,000 ML IV STA (13:23)
[2020-08-08] MEDS ORDERED: HYDROmorphone 1 MG/ML CARPUJECT IVP STA ×2 (13:23→16:01)
--- NOTE | 2020-08-08 13:26 | ED Physician Documentation ---
History of Present Illness - Stated complaint Stated Complaint: LEFT SIDED PX - Chief complaint Chief Complaint: Abd Pain - Additonal information Additional information: 39-year-old female presents to the emergency department with acute and worsening left-sided abdominal pain. She was seen in this ER 07/25/2020. Testing revealed that she had an 8 mm left UVJ stone that showed mild to moderate hydro. She was followed up with Dr. Chin in [facility]. The patient did undergo left ureter stent placment with Dr. Chin. However after the stent was placed she continue to report pain therefore she asked for the stent to be removed sooner. It was removed this morning in office by the nurse. Since then patient reports that she has had uncontrolled pain and vomiting. She was advised by the urology office to present to the ER. denies fevers, but does have dysuria for the last 3 days. Review of Systems Constitutional: reports: Reviewed and negative Ears: reports: Reviewed and negative Nose: reports: Reviewed and negative Throat: reports: Reviewed and negative Cardiac: reports: Reviewed and negative Respiratory: reports: Reviewed and negative GI: reports: Abdominal Pain, Nausea. denies: Vomiting, Constipation, Diarrhea, Hematemesis : reports: Dysuria, Hematuria. denies: Frequency, Incontinent Skin: reports: Reviewed and negative Musculoskeletal: reports: Reviewed and negative Neurologic: reports: Reviewed and negative PD PAST MEDICAL HISTORY - Past Medical History Past Medical History: Yes Cardiovascular: None Respiratory: Sleep apnea, Other Neuro: None Endocrine/Autoimmune: None GI: Other METAL CUT OFF SAW TENDER: None : Kidney stones HEENT: Chronic sinusitis Psych: None Musculoskeletal: None Derm: None - Past Surgical History Past Surgical History: Yes General: Appendectomy, Other /METAL CUT OFF SAW TENDER: Other - Present Medications Home Medications: Ambulatory Orders Medication Instructions Recorded Confirmed traMADol [Ultram] 50 mg PO Q4-6H 10/08/16 03/23/19 Cyclobenzaprine [Flexeril] 10 mg PO TID PRN 06/09/17 03/23/19 oxyCODONE/ACET 5/325 [Percocet 5 1 - 2 tab PO Q4-6H PRN #15 tablet 06/09/17 03/23/19 mg/325 mg] Gabapentin 300 mg PO DAILY 03/23/19 03/23/19 HYDROmorphone [Dilaudid] 2 - 4 mg PO Q4H PRN #10 tablet 03/23/19 Ibuprofen [Motrin] 800 mg PO Q8H PRN #30 tablet 07/19/19 Ondansetron Odt [Zofran] 4 mg TL Q6H PRN #10 tablet 07/19/19 Oxycodone HCl/Acetaminophen 1 - 2 each PO Q6H PRN #14 tablet 07/19/19 [Percocet 5-325 mg Tablet] Cephalexin [Keflex] 500 mg PO Q6H #20 capsule 08/04/19 Oxycodone HCl/Acetaminophen 1 each PO Q4H PRN #20 tablet 08/04/19 [Percocet 7.5-325 mg Tablet] dexAMETHasone [Decadron] 4 mg PO DAILY #5 tablet 08/04/19 Oxycodone HCl/Acetaminophen 1 each PO Q4H PRN #15 tablet 11/27/19 [Percocet 7.5-325 mg Tablet] Promethazine [Phenergan] 25 mg PO Q6H PRN #20 tab 11/27/19 Ciprofloxacin HCl [Cipro] 500 mg PO BID #20 tablet 02/21/20 Oxycodone HCl/Acetaminophen 1 - 2 each PO Q6H PRN #14 tablet 02/21/20 [Percocet 5-325 mg Tablet] Oxycodone HCl/Acetaminophen 1 each PO Q4H PRN #20 tablet 03/16/20 [Percocet 7.5-325 mg Tablet] Oxycodone HCl/Acetaminophen 1 each PO Q6HR PRN #10 tablet 05/04/20 [Percocet 7.5-325 mg Tablet] Oxycodone HCl/Acetaminophen 1 each PO Q6HR PRN 2 Days #8 tablet 07/25/20 [Percocet 10-325 mg Tablet] Tamsulosin HCl [Flomax] 0.4 mg PO AC 14 Days #14 cap.er.24h 07/25/20 Cephalexin [Keflex] 500 mg PO TID #30 capsule 08/08/20 oxyCODONE [Roxicodone] 5 mg PO BID #5 tablet 08/08/20 - Allergies Allergies/Adverse Reactions: Allergies Allergy/AdvReac Type Severity Reaction Status Date / Time ciprofloxacin [From Cipro] Allergy Unknown Verified 08/08/20 12:00 hydrocodone [From Lortab] Allergy Unknown Verified 08/08/20 12:00 meperidine HCl * AdvReac Unknown family hx Verified 08/08/20 12:00 [From Demerol] of cardiac arrest seasonal allergies Allergy Unknown Uncoded 05/04/20 19:23 - Social History Does the pt smoke?: No Smoking Status: Never smoker Does the pt drink ETOH?: No Does the pt have substance abuse?: No - Immunizations Immunizations are current?: Yes - POLST Patient has POLST: No PD ED PE EXPANDED - General General: No acute distress, Well developed/nourished, Other (morbid obesity) - Cardiac Cardiac: Regular Rate, Regular Rhythm, Radial strong equal, Femoral strong equal, Pedal strong equal. No: Murmur Present - Respiratory Respiratory: Clear to ausultation alfonso. No: Distress, Labored - Abdomen Abdomen: Normal Bowel sounds, Tender to palpation (Left sided abdominal pain. No CVA tenderness. Abdominal exam is somewhat limited by body habitus.), Left abdomen. No: Suprapubic - Derm Derm: Normal color - Extremities Extremities: Normal, Deformity. No: Pedal edema bilateral, Right calf TTP/cord, Left calf TTP/cord - Neuro Neuro: Alert and Oriented X 3, CNII-XII intact - GCS Eye Opening: Spontaneous Motor: Obeys Commands Verbal: Oriented Total: 15 Results - Vitals Vitals: Vital Signs - 24 hr 08/08/20 12:00 Temperature 36.6 C Heart Rate 84 Respiratory 20 Rate Blood Pressure 146/86 H O2 Saturation 100 Oxygen O2 Source Room air - Labs Labs: Laboratory Tests 08/08/20 08/08/20 08/08/20 12:37 12:50 13:27 WBC 8.4 RBC 4.38 Hgb 13.0 Hct 38.5 MCV 87.9 MCH 29.7 MCHC 33.8 RDW 13.6 Plt Count 259 MPV 10.5 Neut # (Auto) 5.3 Lymph # (Auto) 2.2 [place] # (Auto) 0.6 Eos # (Auto) 0.2 Baso # (Auto) 0.0 Absolute Nucleated RBC 0.00 Nucleated RBC % 0.0 Sodium 140 Potassium 3.5 Chloride 107 Carbon Dioxide 21 Anion Gap 12.0 BUN 16 Creatinine 0.9 Estimated GFR (MDRD) 69 L Glucose 92 Calcium 9.1 Total Bilirubin 0.4 AST 16 ALT 16 Alkaline Phosphatase 98 Total Protein 8.1 Albumin 4.2 Globulin 3.9 Albumin/Globulin Ratio 1.1 Lipase 33 Urine Color YELLOW Urine Clarity HAZY Urine pH 6.0 Ur Specific [place] >=1.030 H Urine Protein 100 H Urine Glucose (UA) NEGATIVE Urine Ketones NEGATIVE Urine Occult Blood LARGE H Urine Nitrite POSITIVE H Urine Bilirubin NEGATIVE Urine Urobilinogen 0.2 (NORMAL) Ur Leukocyte Esterase MODERATE H Urine RBC TNTC H Urine WBC >25 H Ur Squamous Epith Cells FEW Squamous Urine Crystals 3-5 Calcium Oxalate Urine Bacteria Many H Ur Microscopic Review INDICATED Urine Culture Comments INDICATED Urine HCG, Qual NEGATIVE PD MEDICAL DECISION MAKING - ED course Complexity details: reviewed results, re-evaluated patient, considered differential, d/w patient, d/w showroom 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 She does have a history of multiple renal stones as well as obstructing hydro in the past. Her urinalysis today is consistent with infection. Reassuringly she has no fevers, CVA tenderness or vomiting. My suspicion for pyelonephritis is low. I did discuss this case with on-call urologist Dr. Cronin and the recommendation was to institute antibiotics as appropriate and have the patient follow-up with urology office in the a.m. He would not recommend advanced imaging at this time. While here in the ED pt has appeared well and remained hemodynamically stable. Emergent return precautions were discussed. a limited amount of oxycodone was rx for analgesia Departure - Departure Disposition: 01 Home, Self Care Clinical Impression: Nephrolithiasis UTI (urinary tract infection) Qualifiers: Urinary tract infection type: acute cystitis Hematuria presence: with hematuria Qualified Code(s): N30.01 - Acute cystitis with hematuria Condition: Stable Record reviewed to determine appropriate education?: Yes Instructions: ED UTI Cystitis Female Follow-Up: Latoya Cronin MD [Physician No Access] - Prescriptions: Cephalexin [Keflex] 500 mg PO TID #30 capsule oxyCODONE [Roxicodone] 5 mg PO BID #5 tablet Comments: I hope that you are feeling better soon. Your urine today suggest that you have a urinary tract infection. We have given you your first dose of antibiotic here in the emergency department but you should fill the prescription and begin taking tonight as directed. I have also prescribed a small amount of oxycodone for pain control. do not drive if taking this Please discuss this ED visit with your urology office tomorrow in the a.m. If at any point you have fevers, worsening pain uncontrolled abdominal pain please return immediately to the ER
[2020-08-08 13:32] LABS: BASOPHILS % (AUTO) 0.4 %; EOSINOPHILS # (AUTO) 0.2 10^3/uL (0.0-0.7); EOSINOPHILS % (AUTO) 2.9 %; LYMPHOCYTES # (AUTO) 2.2 10^3/uL (1.5-3.5); LYMPHOCYTES % (AUTO) 26.7 %; MEAN CORPUSCULAR HEMOGLOBIN 29.7 pg (27.0-31.0); MEAN CORPUSCULAR HGB CONC 33.8 g/dL (32.0-36.0); MEAN CORPUSCULAR VOLUME 87.9 fL (81.0-99.0); MEAN PLATELET VOLUME 10.5 fL (7.9-10.8); MONOCYTES # (AUTO) 0.6 10^3/uL (0.0-1.0); MONOCYTES % (AUTO) 7.2 %; NEUTROPHILS # (AUTO) 5.3 10^3/uL (1.5-6.6); NEUTROPHILS % (AUTO) 62.6 %; PLT - PLATELET COUNT 259 10^3/uL (130-450); RED BLOOD COUNT 4.38 10^6/uL (4.20-5.40); RED CELL DISTRIBUTION WIDTH 13.6 % (12.0-15.0); WHITE BLOOD COUNT 8.4 x10^3/uL (4.8-10.8)
[2020-08-08 13:45] LABS: BILIRUBIN,URINE NEGATIVE (NEGATIVE); GLUCOSE, URINE (UA) NEGATIVE (NEGATIVE); KETONES,URINE (UA) NEGATIVE (NEGATIVE); LEUKOCYTE ESTERASE, URINE MODERATE (NEGATIVE); NITRITE,URINE POSITIVE (NEGATIVE); OCCULT BLOOD,URINE LARGE (NEGATIVE); PROTEIN,URINE 100 mg/dL (NEGATIVE); UROBILINOGEN,URINE 0.2 (NORMAL) E.U./dL (NORMAL)
[2020-08-08 13:51] LABS: CLARITY,URINE HAZY (CLEAR); HCG UR QUAL NEGATIVE
[2020-08-08 13:55] LABS: BACTERIA,URINE Many /HPF (None Seen); CRYSTALS,URINE 3-5 Calcium Oxalate /LPF; RBC,URINE TNTC /HPF (0-5); SQUAMOUS EPITHELIAL CELL,UR FEW Squamous (<= Few)
[2020-08-08] MEDS ORDERED: cefTRIAXone 1 GM VIAL IVP STA (15:44)
[2020-08-08 16:31] VITALS: BP 136/85
== END 2020-08-08 16:31 | disposition home or self-care (01) ==
LOC: ED 11:52
DX: N30.01 Acute cystitis with hematuria (principal); N20.0 Calculus of kidney; Z98.890 Other specified postprocedural states
CPT/HCPCS: 80053; 81001; 81025; 83690; 85025; 87077; 87086; 87181; 96374; 96375; 96376; 99283; 99284; J1170; 36415; 81003

== ENCOUNTER 2020-11-24 22:32 | Emergency (ER) | payer BC ==
[2020-11-24 22:58] LABS: BILIRUBIN,URINE NEGATIVE (NEGATIVE); GLUCOSE, URINE (UA) NEGATIVE (NEGATIVE); KETONES,URINE (UA) NEGATIVE (NEGATIVE); LEUKOCYTE ESTERASE, URINE NEGATIVE (NEGATIVE); NITRITE,URINE NEGATIVE (NEGATIVE); OCCULT BLOOD,URINE MODERATE (NEGATIVE); PROTEIN,URINE 30 mg/dL (NEGATIVE); UROBILINOGEN,URINE 0.2 (NORMAL) E.U./dL (NORMAL)
[2020-11-24 22:59] LABS: CLARITY,URINE CLEAR (CLEAR)
[2020-11-24 23:08] LABS: BACTERIA,URINE Rare /HPF (None Seen); SQUAMOUS EPITHELIAL CELL,UR MANY Squamous (<= Few); WBC,URINE 0-3 /HPF (0-5)
--- NOTE | 2020-11-24 23:13 | ED Physician Documentation ---
PD HPI FEMALE - Stated complaint Stated Complaint: R FLANK PX - Chief complaint Chief Complaint: Abd Pain - History obtained from History obtained from: Patient - History of Present Illness Timing - onset: Enter time (17:00), Today Timing - details: Abrupt onset Pain level max: 7 Associated symptoms: Abdominal pain. No: Fever Similar symptoms before: Diagnosis (renal colic) - Additional information Additional information: patient presents for right flank pain which started at approximately 5 PM today. It became more intense and severe at approximately 10 PM. Denies nausea denies vomiting. The pain waxes and wanes without apparent inciting or ameliorating factors, and she says the symptoms are consistent with her many previous episodes of renal colic. Her most recent visit to this emergency department was if you months ago at which time she was found to have an 8 mm left ureteral stone causing obstruction, and patient says she subsequently had to have this removed by her urologist. Review of Systems Constitutional: reports: Reviewed and negative Cardiac: reports: Reviewed and negative Respiratory: reports: Reviewed and negative GI: reports: Abdominal Pain. 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 QUALITY AUTOMATION ENGINEER: Other - Present Medications Home Medications: Ambulatory Orders Medication Instructions Recorded Confirmed traMADol [Ultram] 50 mg PO Q4-6H 10/08/16 11/24/20 Cyclobenzaprine [Flexeril] 10 mg PO TID PRN 06/09/17 11/24/20 Gabapentin 300 mg PO DAILY 03/23/19 11/24/20 Duloxetine HCl [Cymbalta] 60 mg PO DAILY PM 11/24/20 11/24/20 Meloxicam [Mobic] 7.5 mg PO DAILY PM 11/24/20 11/24/20 Oxycodone HCl/Acetaminophen 1 - 2 each PO Q6H PRN #14 tablet 11/25/20 [Percocet 5-325 mg Tablet] - Allergies Allergies/Adverse Reactions: Allergies Allergy/AdvReac Type Severity Reaction Status Date / Time meperidine HCl * AdvReac Unknown family hx Verified 11/24/20 22:51 [From Demerol] of cardiac arrest seasonal allergies Allergy Unknown Uncoded 05/04/20 19:23 - Social History Does the pt smoke?: No Smoking Status: Never smoker Does the pt drink ETOH?: No Does the pt have substance abuse?: No - Immunizations Immunizations are current?: Yes - POLST Patient has POLST: No PD ED PE NORMAL - Vitals Vital signs reviewed: Yes - General General: Alert and oriented X 3, No acute distress, Other (obese) - Cardiac Cardiac: RRR, No murmur - Respiratory Respiratory: No respiratory distress, Clear bilaterally - Abdomen Abdomen: Soft, Non tender, Non distended - Back Back: No CVA TTP Results - Vitals Vitals: Vital Signs - 24 hr 11/24/20 11/25/20 11/25/20 22:47 00:50 00:53 Temperature 36.6 C Heart Rate 103 H 87 75 Respiratory 22 17 17 Rate Blood Pressure 151/108 H 124/73 110/49 L O2 Saturation 100 99 94 11/25/20 01:02 Temperature 36.6 C Heart Rate 75 Respiratory 17 Rate Blood Pressure 110/49 L O2 Saturation 94 Oxygen O2 Source Room air - Labs Labs: Laboratory Tests 11/24/20 11/24/20 11/24/20 22:40 23:30 23:30 WBC 8.0 RBC 4.50 Hgb 12.7 Hct 39.8 MCV 88.4 MCH 28.2 MCHC 31.9 L RDW 13.6 Plt Count 267 MPV 10.0 Neut # (Auto) 4.3 Lymph # (Auto) 3.0 [place] # (Auto) 0.5 Eos # (Auto) 0.1 Baso # (Auto) 0.0 Absolute Nucleated RBC 0.00 Nucleated RBC % 0.0 Sodium 135 Potassium 3.5 Chloride 104 Carbon Dioxide 21 Anion Gap 10.0 BUN 17 Creatinine 0.8 Estimated GFR (MDRD) 79 L Glucose 100 Calcium 8.4 L Total Bilirubin 0.6 AST 12 ALT 14 Alkaline Phosphatase 91 Total Protein 7.0 Albumin 3.6 Globulin 3.4 Albumin/Globulin Ratio 1.1 Lipase 26 Urine Color YELLOW Urine Clarity CLEAR Urine pH 6.0 Ur Specific [place] >=1.030 H Urine Protein 30 H Urine Glucose (UA) NEGATIVE Urine Ketones NEGATIVE Urine Occult Blood MODERATE H Urine Nitrite NEGATIVE Urine Bilirubin NEGATIVE Urine Urobilinogen 0.2 (NORMAL) Ur Leukocyte Esterase NEGATIVE Urine RBC 6-10 H Urine WBC 0-3 Ur Squamous Epith Cells MANY Squamous H Urine Bacteria Rare Ur Microscopic Review INDICATED Urine Culture Comments NOT INDICATED PD MEDICAL DECISION MAKING - ED course Complexity details: reviewed old records, reviewed results, re-evaluated patient, considered differential, d/w patient ED course: given her recurrent history of renal calculi, and considering the hematuria noted on tonights urinalysis, as well as lack of tenderness on the abdominal exam and reassuring blood tests, it is reasonable to assume tonights symptoms represent another episode of renal colic. Emergent imaging was discussed, specifically CT scan of abdomen and pelvis, and a mutual decision was reached to not perform imaging at this time, as it would not likely contribute to immediate management of this episode. Alternative diagnoses are not suspected based on the history, physical exam, and test results. Her pain was well-controlled with Toradol, Dilaudid, and Zofran. Departure - Departure Disposition: 01 Home, Self Care Clinical Impression: Acute right flank pain Condition: Good Instructions: ED Flank Pain Uncertain Cause Prescriptions: Oxycodone HCl/Acetaminophen [Percocet 5-325 mg Tablet] 1 - 2 each PO Q6H PRN #14 tablet PRN Reason: pain Comments: As we discussed, your symptoms are suspected to be due to a right-sided kidney stone. Because you have had similar symptoms before that were the results of kidney stones, no imaging (such as CT scan) was performed tonight; if it is a kidney stone, the immediate treatment in the emergency department usually consists of symptom control and looking into other possible causes or complications (your physical exam and blood tests do not suggest either an alternate cause nor complications of kidney stone such as infection). Please return to the emergency department if worse or new signs/symptoms develop such as fever. Follow up with your urologist. Discharge Date/Time: 11/25/20 01:02
[2020-11-24] MEDS ORDERED: HYDROmorphone 1 MG/ML CARPUJECT IVP STA (23:25)
[2020-11-24] MEDS ORDERED: KETOROLAC 30 MG/ML VIAL IVP STA (23:25)
[2020-11-24] MEDS ORDERED: ONDANSETRON 4 MG/2 ML VIAL IVP STA (23:25)
[2020-11-24 23:34] LABS: BASOPHILS % (AUTO) 0.4 %; EOSINOPHILS # (AUTO) 0.1 10^3/uL (0.0-0.7); EOSINOPHILS % (AUTO) 1.5 %; HCT - HEMATOCRIT 39.8 % (37.0-47.0); HGB - HEMOGLOBIN 12.7 g/dL (12.0-16.0); LYMPHOCYTES % (AUTO) 37.1 %; MEAN CORPUSCULAR HEMOGLOBIN 28.2 pg (27.0-31.0); MEAN CORPUSCULAR HGB CONC 31.9 g/dL (32.0-36.0); MEAN CORPUSCULAR VOLUME 88.4 fL (81.0-99.0); MONOCYTES # (AUTO) 0.5 10^3/uL (0.0-1.0); MONOCYTES % (AUTO) 6.6 %; NEUTROPHILS # (AUTO) 4.3 10^3/uL (1.5-6.6); NEUTROPHILS % (AUTO) 54.3 %; PLT - PLATELET COUNT 267 10^3/uL (130-450); RED CELL DISTRIBUTION WIDTH 13.6 % (12.0-15.0)
[2020-11-24 23:47] LABS: ALBUMIN 3.6 g/dL (3.2-5.5); ALBUMIN/GLOBULIN RATIO 1.1 (1.0-2.2); BILIRUBIN,TOTAL 0.6 mg/dL (0.2-1.0); CALCIUM 8.4 mg/dL (8.5-10.3); CREATININE 0.8 mg/dL (0.4-1.0); POTASSIUM 3.5 mmol/L (3.5-5.0)
[2020-11-25] MEDS ORDERED: oxyCODONE/ACET 5/325 Prepack 4 PO STA (00:39)
[2020-11-25 00:54] VITALS: BP 110/49
--- OUTSIDE RECORDS SUMMARY | 2020-11-29 02:23 | EXTERNAL MEDICAL SUMMARY RPT | Continuity of Care Document ---
:1980 Demographics Phone Unavailable Preferred Language Unknown Marital Status Unknown Presybeterian Affiliation Unknown Race Unknown Ethnic Group Unknown Author Organization [place] Address [address] [place] [address] Phone Social History date description facility [id number]
== END 2020-11-25 01:02 | disposition home or self-care (01) ==
LOC: ED 22:32
DX: R10.9 Unspecified abdominal pain (principal); R31.9 Hematuria, unspecified; Z87.442 Personal history of urinary calculi
CPT/HCPCS: 36415; 80053; 81001; 83690; 85025; 96374; 99283; 99284; J1170; 81003; 87086

== ENCOUNTER 2021-04-18 11:14 | Emergency (ER) | payer BC ==
[2021-04-18] MEDS ORDERED: HYDROmorphone 1 MG/ML CARPUJECT IM STA (11:38)
[2021-04-18] MEDS ORDERED: ONDANSETRON ODT 4 MG TABLET TL STA (11:39)
--- NOTE | 2021-04-18 11:44 | ED Physician Documentation ---
History of Present Illness - Stated complaint Stated Complaint: RIGHT SIDE ABD PX - Chief complaint Chief Complaint: Abd Pain - Additonal information Additional information: 40-year-old female presents emergency department for evaluation of acute right flank pain that began as she initiated micturition. She denies that she was having dysuria however. 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 She has previously required stenting at [facility]. Patient endorses some nausea but no vomiting. No fevers. Patient appears frustrated on initial presentation. She states she is no longer willing to see [facility] urology as she does not like the urologist. She does have a pending referral to [facility] for urology evaluation. She takes Mobic at home for generalized pains and therefore has not taken anything today. Review of Systems Constitutional: denies: Fever, Chills Eyes: reports: Reviewed and negative Ears: reports: Reviewed and negative Throat: reports: Reviewed and negative Cardiac: reports: Reviewed and negative Respiratory: reports: Reviewed and negative GI: reports: Reviewed and negative : reports: Reviewed and negative Skin: reports: Reviewed and negative Musculoskeletal: reports: Reviewed and negative PD PAST MEDICAL HISTORY - Past Medical History Cardiovascular: None Respiratory: Sleep apnea, Other Neuro: None Endocrine/Autoimmune: None GI: Other PATIENT SAFETY COORDINATOR: None : Kidney stones HEENT: Chronic sinusitis Psych: None Musculoskeletal: None Derm: None - Past Surgical History Past Surgical History: Yes General: Appendectomy, Other /PATIENT SAFETY COORDINATOR: Other - Present Medications Home Medications: Ambulatory Orders Medication Instructions Recorded Confirmed traMADol [Ultram] 50 mg PO Q4-6H 10/08/16 11/24/20 Cyclobenzaprine [Flexeril] 10 mg PO TID PRN 06/09/17 11/24/20 Gabapentin 300 mg PO DAILY 03/23/19 11/24/20 Duloxetine HCl [Cymbalta] 60 mg PO DAILY PM 11/24/20 11/24/20 Meloxicam [Mobic] 7.5 mg PO DAILY PM 11/24/20 11/24/20 Oxycodone HCl/Acetaminophen 1 - 2 each PO Q6H PRN #14 tablet 11/25/20 [Percocet 5-325 mg Tablet] Ondansetron Odt [Zofran] 4 mg TL Q6H PRN #10 tablet 04/18/21 Oxycodone HCl/Acetaminophen 1 - 2 each PO DAILY PRN #8 tablet 04/18/21 [Percocet 5-325 mg Tablet] - Allergies Allergies/Adverse Reactions: Allergies Allergy/AdvReac Type Severity Reaction Status Date / Time meperidine HCl * AdvReac Unknown family hx Verified 04/18/21 11:25 [From Demerol] of cardiac arrest seasonal allergies Allergy Unknown Uncoded 04/18/21 11:25 - Social History Does the pt smoke?: No Smoking Status: Never smoker Does the pt drink ETOH?: No Does the pt have substance abuse?: No - Immunizations Immunizations are current?: Yes - POLST Patient has POLST: No PD ED PE EXPANDED - General General: Alert, No acute distress, Other (morbid obesity) - Cardiac Cardiac: Regular Rate, Radial strong equal - Respiratory Respiratory: Clear to ausultation alfonso. No: Distress, Labored - Abdomen Abdomen: Normal Bowel sounds, Other (Abdominal exam limited by morbid obesity. However no CVA flank or lower abdominal tenderness elicited). No: Tender to palpation - Derm Derm: Normal color, Warm and dry. No: Rash Results - Vitals Vitals: Vital Signs - 24 hr 04/18/21 04/18/21 11:23 12:31 Temperature 36.4 C L 37.3 C Heart Rate 111 H 87 Respiratory 20 18 Rate Blood Pressure 221/97 H 137/76 H O2 Saturation 99 100 Oxygen O2 Source Room air - Labs Labs: Laboratory Tests 04/18/21 04/18/21 04/18/21 11:52 12:03 12:03 WBC 7.1 RBC 4.46 Hgb 13.7 Hct 42.2 MCV 94.6 MCH 30.7 MCHC 32.5 RDW 13.8 Plt Count 237 MPV 10.6 Neut # (Auto) 4.3 Lymph # (Auto) 2.2 [place] # (Auto) 0.5 Eos # (Auto) 0.1 Baso # (Auto) 0.0 Absolute Nucleated RBC 0.00 Nucleated RBC % 0.0 Urine Color DARK YELLOW Urine Clarity CLEAR Urine pH 6.0 Ur Specific [place] 1.025 Urine Protein TRACE Urine Glucose (UA) NEGATIVE Urine Ketones NEGATIVE Urine Occult Blood TRACE-LYSE Urine Nitrite NEGATIVE Urine Bilirubin NEGATIVE Urine Urobilinogen 1 (NORMAL) Ur Leukocyte Esterase NEGATIVE Ur Microscopic Review NOT INDICATED Urine Culture Comments NOT INDICATED Urine HCG, Qual NEGATIVE - Rads (name of study) Renal US Radiology: See rad report, Other (No obstructive uropathy. No hydronephrosis bilaterally. Possible nonobstructing stone in the upper pole of the right kidney.) PD MEDICAL DECISION MAKING - ED course Complexity details: reviewed results, d/w patient, d/w family ED course: 40-year-old female presents emergency department for evaluation of right flank pain acute onset about 1 hour prior to arrival. She does carry a history of previously known urolithiasis. Has required stenting in the past. Screening labs today show no leukocytosis and normal renal function. Her urine shows no signs of infection. A renal ultrasound was performed and showed no findings of obstructive uropathy or hydronephrosis. There is a small nonobstructing stone right upper pole of the kidney. These findings were discussed with the patient. I have advised her to have continue close follow-up with her urologist through [facility]. Very limited prescription of Percocet was levied as well as some nausea medicine. Emergent return precautions discussed. I am prescribing a short course of short-acting opioid pain medication for this patient. 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 I have discussed that the opioids are for short term therapy only, and will not be refilled from the ED. Departure - Departure Disposition: 01 Home, Self Care Clinical Impression: Right flank pain, Right nephrolithiasis Condition: Stable Record reviewed to determine appropriate education?: Yes Instructions: ED Stone Kidney Undescended No Sx Follow-Up: Tarsha Cisneros PA-C [Primary Care Provider] - Prescriptions: Oxycodone HCl/Acetaminophen [Percocet 5-325 mg Tablet] 1 - 2 each PO DAILY PRN #8 tablet PRN Reason: pain Ondansetron Odt [Zofran] 4 mg TL Q6H PRN #10 tablet PRN Reason: Nausea / Vomiting Comments: You are seen in the ER today for right flank pain. You do have a history of kidney stones. Your screening labs today are all essentially normal. You have no infection in the urine. The ultrasound of your kidneys did not show any swelling or hydronephrosis though there is a small nonobstructing stone in your right upper kidney. Please discuss this ED visit with your primary care doctor and continue follow- up with [facility]. If at any point you have worsening symptoms please return immediately to the ER. I am prescribing a short course of narcotic pain medication for you. These are potentially dangerous and addictive medications that should be used carefully. These medications may constipate you. Take an ujmm-rmm-dcpifbb stool softener (docusate) twice daily with plenty of water while taking these medications. If you go 24 hours without a bowel movement, take tkgn-crn-eidxsxr miralax, per package instructions. Do not drink or drive while taking these medications. If you received narcotic or sedating medications while in the emergency department, do not drive for 24 hours. Store this medication in a safe, secure place and out of reach of children. It is a violation of federal law to give or sell this medication to another person or to use in a manner other than prescribed. The ED will not refill narcotic prescriptions, including prescriptions lost or stolen. To dispose of unwanted medications: 1. [facility] [address] in [place] has a medication drop box. They accept prescription medications (in pill form) Friday through Friday 9:00 a.m. to 5:00 p.m. 2. The [facility] [employer] Department accepts prescription medications (in pill form only) for disposal year round. Call for more information. 3. Contact the [facility] for the next [facility] sponsored prescription d rug collection event. , [phone], or [phone]; Note that many narcotic pain relievers also contain Tylenol/acetaminophen. Please ensure that your total dose of acetaminophen from all sources does not exceed 3 g (3000 mg) per day.
[2021-04-18 11:58] LABS: BASOPHILS % (AUTO) 0.4 %; EOSINOPHILS # (AUTO) 0.1 10^3/uL (0.0-0.7); EOSINOPHILS % (AUTO) 1.5 %; HCT - HEMATOCRIT 42.2 % (37.0-47.0); HGB - HEMOGLOBIN 13.7 g/dL (12.0-16.0); LYMPHOCYTES # (AUTO) 2.2 10^3/uL (1.5-3.5); LYMPHOCYTES % (AUTO) 30.8 %; MEAN CORPUSCULAR HEMOGLOBIN 30.7 pg (27.0-31.0); MEAN CORPUSCULAR HGB CONC 32.5 g/dL (32.0-36.0); MEAN CORPUSCULAR VOLUME 94.6 fL (81.0-99.0); MEAN PLATELET VOLUME 10.6 fL (7.9-10.8); MONOCYTES # (AUTO) 0.5 10^3/uL (0.0-1.0); MONOCYTES % (AUTO) 6.5 %; NEUTROPHILS # (AUTO) 4.3 10^3/uL (1.5-6.6); NEUTROPHILS % (AUTO) 60.5 %; PLT - PLATELET COUNT 237 10^3/uL (130-450); RED BLOOD COUNT 4.46 10^6/uL (4.20-5.40); RED CELL DISTRIBUTION WIDTH 13.8 % (12.0-15.0); WHITE BLOOD COUNT 7.1 x10^3/uL (4.8-10.8)
[2021-04-18 12:10] LABS: BILIRUBIN,URINE NEGATIVE (NEGATIVE); CLARITY,URINE CLEAR (CLEAR); GLUCOSE, URINE (UA) NEGATIVE (NEGATIVE); KETONES,URINE (UA) NEGATIVE (NEGATIVE); LEUKOCYTE ESTERASE, URINE NEGATIVE (NEGATIVE); NITRITE,URINE NEGATIVE (NEGATIVE); OCCULT BLOOD,URINE TRACE-LYSE (NEGATIVE); PROTEIN,URINE TRACE mg/dL (NEGATIVE); UROBILINOGEN,URINE 1 (NORMAL) E.U./dL (NORMAL)
[2021-04-18 12:13] LABS: HCG UR QUAL NEGATIVE
[2021-04-18 12:36] LABS: ALBUMIN 3.4 g/dL (3.2-5.5); BILIRUBIN,TOTAL 0.8 mg/dL (0.2-1.0); CALCIUM 8.9 mg/dL (8.5-10.3); CREATININE 0.9 mg/dL (0.4-1.0); POTASSIUM 4.5 mmol/L (3.5-5.0); TOTAL PROTEIN 6.8 g/dL (6.7-8.2)
--- NOTE | 2021-04-18 12:56 | Ultrasound Report ---
PROCEDURE: Retroperitoneal INDICATIONS: Right flank pain; eval for hydro/stones TECHNIQUE: Real-time scanning was performed of the retroperitoneal organs, with image documentation. COMPARISON: None. FINDINGS: Prior ultrasound and CT examinations, most recent 07/25/2020 The right kidney measures 12.8 cm in length. The left kidney measures 11.9 cm in length. Both kidneys demonstrate normal parenchymal echogenicity and cortical thickness. There is an approximately 6 mm c alculus in the upper pole of the right kidney, nonobstructing. No findings of hydronephrosis. Urinary bladder is not well assessed, due to patient having recently empty the bladder prior to scann ing. The bladder is grossly normal in appearance. IMPRESSION: Nonobstructing 6 mm right upper pole calculus. No findings of hydronephrosis. Reviewed by: William Moore MD on 04/18/2021 12:54 PM PDT Approved by: William Moore MD on 04/18/2021 12:54 PM PDT Station ID: [id number]
[2021-04-18 13:00] VITALS: BP 120/80
== END 2021-04-18 13:00 | disposition home or self-care (01) ==
LOC: ED 11:14
DX: R10.9 Unspecified abdominal pain (principal); N20.0 Calculus of kidney; Z87.442 Personal history of urinary calculi; E66.01 Morbid (severe) obesity due to excess calories; Z68.44 Body mass index [BMI] 60.0-69.9, adult
CPT/HCPCS: 36415; 76770; 80053; 81003; 81025; 83690; 85025; 96372; 99283; 99284; J1170; Q0162; 81001; 87086

== ENCOUNTER 2021-06-26 18:34 | Emergency (ER) | payer BC ==
[2021-06-26] MEDS ORDERED: HYDROmorphone 1 MG/ML CARPUJECT IM STA (18:59)
[2021-06-26] MEDS ORDERED: KETOROLAC 60 MG/2 ML VIAL IM STA (18:59)
[2021-06-26 19:11] LABS: BILIRUBIN,URINE NEGATIVE (NEGATIVE); GLUCOSE, URINE (UA) NEGATIVE (NEGATIVE); KETONES,URINE (UA) TRACE mg/dL (NEGATIVE); LEUKOCYTE ESTERASE, URINE NEGATIVE (NEGATIVE); NITRITE,URINE NEGATIVE (NEGATIVE); OCCULT BLOOD,URINE SMALL (NEGATIVE); PROTEIN,URINE NEGATIVE (NEGATIVE); UROBILINOGEN,URINE 0.2 (NORMAL) E.U./dL (NORMAL)
[2021-06-26 19:13] LABS: CLARITY,URINE CLEAR (CLEAR)
--- NOTE | 2021-06-26 19:13 | ED Physician Documentation ---
PD HPI ABD PAIN - Stated complaint Stated Complaint: LT SIDE FLANK PX - Chief complaint Chief Complaint: Abd Pain - History obtained from History obtained from: Patient - History of Present Illness Timing - onset: Today Timing - duration: Days (1) Timing - details: Abrupt onset Pain level max: 9 Pain level now: 9 Quality: Aching, Sharp, Pain Location: All over / everywhere Radiation: Left flank Improved by: Other (nothing) Worsened by: Other (nothing) Associated symptoms: No: Fever, Nausea, Vomiting, Hematemesis, Diarrhea, Constipation, Melena, Hematochezia, Dysuria, Hematuria Recently seen: Not recently seen Review of Systems Ten Systems: 10 systems reviewed and negative Constitutional: denies: Fever, Chills Respiratory: denies: Cough GI: denies: Vomiting, Diarrhea Skin: denies: Rash Musculoskeletal: denies: Neck pain, Back pain Neurologic: denies: Headache, Head injury PD PAST MEDICAL HISTORY - Past Medical History Past Medical History: Yes Cardiovascular: None Respiratory: Sleep apnea, Other Neuro: None Endocrine/Autoimmune: None GI: Other ICU MANAGER: None : Kidney stones HEENT: Chronic sinusitis Psych: None Musculoskeletal: None Derm: None - Past Surgical History Past Surgical History: Yes General: Appendectomy, Other /ICU MANAGER: Other - Present Medications Home Medications: Ambulatory Orders Medication Instructions Recorded Confirmed traMADol [Ultram] 50 mg PO Q4-6H 10/08/16 06/26/21 Cyclobenzaprine [Flexeril] 10 mg PO TID PRN 06/09/17 11/24/20 Gabapentin 300 mg PO DAILY 03/23/19 06/26/21 Duloxetine HCl [Cymbalta] 90 mg PO DAILY PM 11/24/20 06/26/21 Meloxicam [Mobic] 7.5 mg PO DAILY PM 11/24/20 06/26/21 Ondansetron Odt [Zofran] 4 mg TL Q6H PRN #10 tablet 04/18/21 06/26/21 Oxycodone HCl/Acetaminophen 1 - 2 each PO Q6H PRN #14 tablet 06/26/21 [Percocet 5-325 mg Tablet] - Allergies Allergies/Adverse Reactions: Allergies Allergy/AdvReac Type Severity Reaction Status Date / Time meperidine HCl * AdvReac Unknown family hx Verified 06/26/21 18:38 [From Demerol] of cardiac arrest seasonal allergies Allergy Unknown Uncoded 04/18/21 11:25 - Social History Does the pt smoke?: No Smoking Status: Never smoker Does the pt drink ETOH?: No Does the pt have substance abuse?: No - Immunizations Immunizations are current?: Yes - POLST Patient has POLST: No PD ED PE NORMAL - Vitals Vital signs reviewed: Yes - General General: Alert and oriented X 3, No acute distress, Well developed/nourished - HEENT HEENT: PERRL, Moist mucous membranes - Neck Neck: Supple, no meningeal sign - Cardiac Cardiac: RRR, Strong equal pulses - Respiratory Respiratory: No respiratory distress, Clear bilaterally - Abdomen Abdomen: Soft, Non tender, Non distended - Back Back: No CVA TTP, No spinal TTP - Derm Derm: Warm and dry - Neuro Neuro: Alert and oriented X 3 - Psych Psych: Normal mood, Normal affect Results - Vitals Vitals: Vital Signs - 24 hr 06/26/21 06/26/21 18:38 20:39 Temperature 36.3 C L Heart Rate 94 88 Respiratory 24 17 Rate Blood Pressure 176/94 H 122/83 H O2 Saturation 99 100 Oxygen O2 Source Room air - Labs Labs: Laboratory Tests 06/26/21 18:50 Urine Color DARK YELLOW Urine Clarity CLEAR Urine pH 6.0 Ur Specific [place] >=1.030 H Urine Protein NEGATIVE Urine Glucose (UA) NEGATIVE Urine Ketones TRACE Urine Occult Blood SMALL H Urine Nitrite NEGATIVE Urine Bilirubin NEGATIVE Urine Urobilinogen 0.2 (NORMAL) Ur Leukocyte Esterase NEGATIVE Urine RBC 6-10 H Urine WBC 0-3 Ur Squamous Epith Cells FEW Squamous Urine Bacteria Few Urine Mucus Few Strands Ur Microscopic Review INDICATED Urine Culture Comments NOT INDICATED Urine HCG, Qual NEGATIVE - Rads (name of study) Retroperitoneal US Radiology: Final report received, EMP read contemporaneously, See rad report (1. No evidence of left-sided hydronephrosis.) PD MEDICAL DECISION MAKING - ED course Complexity details: reviewed results, re-evaluated patient, considered differential, d/w patient ED course: 40-year-old female with left flank pain, similar to her prior ureteral stones. No hydronephrosis on ultrasound. No on urinalysis. Pain well controlled. Will place on pain medication for home and follow-up with her doctor for further care. Patient is well-appearing, nontoxic. Afebrile. Patient counseled regarding signs and symptoms for which I believe and urgent re-evaluation would be necessary. Patient with good understanding of and agreement to plan and is comfortable going home at this time This document was made in part using voice recognition software. While efforts are made to proofread this document, sound alike and grammatical errors may occur. I am prescribing a short course of short-acting opioid pain medication for this patient. 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 I have discussed that the opioids are for short term therapy only, and will not be refilled from the ED. Departure - Departure Disposition: Home, Self Care Clinical Impression: Flank pain, acute Condition: Good Instructions: ED Acute Pain [facility] Follow-Up: Tarsha Cisneros PA-C [Primary Care Provider] - Prescriptions: Oxycodone HCl/Acetaminophen [Percocet 5-325 mg Tablet] 1 - 2 each PO Q6H PRN #14 tablet PRN Reason: pain Comments: Likely there is no hydronephrosis on your ultrasound tonight. It is possible that you are passing a small ureteral stone. Please follow-up with your doctor for further care. Return if you worsen. Your prescriptions were sent to [facility] in [place]. I am prescribing a short course of narcotic pain medication for you. These are potentially dangerous and addictive medications that should be used carefully. These medications may constipate you. Take an tgzd-lku-sgownhv stool softener (docusate) twice daily with plenty of water while taking these medications. If you go 24 hours without a bowel movement, take jpic-xrh-blxcamb miralax, per package instructions. Do not drink or drive while taking these medications. If you received narcotic or sedating medications while in the emergency department, do not drive for 24 hours. Store this medication in a safe, secure place and out of reach of children. It is a violation of federal law to give or sell this medication to another person or to use in a manner other than prescribed. The ED will not refill narcotic prescriptions, including prescriptions lost or stolen. To dispose of unwanted medications: 1. [facility] [address] in [place] has a medication drop box. They accept prescription medications (in pill form) Friday through August 9:00 a.m. to 5:00 p.m. 2. The [facility] Police Department accepts prescription medications (in pill form only) for disposal year round. Call for more information. 3. Contact the [facility] for the next [facility] sponsored prescription drug collection event. , [phone], or [phone]; Discharge Date/Time: 06/26/21 20:40
[2021-06-26 19:14] LABS: HCG UR QUAL NEGATIVE
[2021-06-26 19:24] LABS: BACTERIA,URINE Few /HPF (None Seen); MUCUS,URINE Few Strands; SQUAMOUS EPITHELIAL CELL,UR FEW Squamous (<= Few); WBC,URINE 0-3 /HPF (0-5)
[2021-06-26] MEDS ORDERED: oxyCODONE 5 MG TABLET PO STA (20:26)
--- NOTE | 2021-06-26 20:39 | Ultrasound Report ---
PROCEDURE: Retroperitoneal Limited INDICATIONS: L flank pain h/o renal stones TECHNIQUE: Real-time scanning was performed of the retroperitoneal organs, with image documentation. COMPARISON: CT scan 07/25/2020 FINDINGS: Left kidney: Kidneys normal size measuring 9.6 cm in length. The cortex is 1.4 cm in thickness. Corti almas echogenicity is normal. No obvious mass or cyst. There is no evidence of hydronephrosis. The left ureter is not visible. IMPRESSION: 1. No evidence of left-sided hydronephrosis. Reviewed by: Silvana Pfeiffer MD on 06/26/2021 8:37 PM PDT Approved by: Silvana Pfeiffer MD on 06/26/2021 8:37 PM PDT Station ID: [id number]
[2021-06-26 20:40] VITALS: BP 122/83
== END 2021-06-26 20:40 | disposition home or self-care (01) ==
LOC: ED 18:34
DX: R10.9 Unspecified abdominal pain (principal); Z87.442 Personal history of urinary calculi
CPT/HCPCS: 76775; 81001; 81025; 96372; 99284; A9270; J1170; 81003; 87086

== ENCOUNTER 2021-12-14 03:38 | Emergency (ER) | payer BC ==
--- NOTE | 2021-12-14 03:51 | ED Physician Documentation ---
PD HPI ABD PAIN - Stated complaint Stated Complaint: RT ABD PX - Chief complaint Chief Complaint: Abd Pain - History obtained from History obtained from: Patient - History of Present Illness Timing - onset: How many days ago (3) Timing - details: Abrupt onset, Intermittant Pain level now: 6 Quality: Pain Location: Other (right flank) Radiation: Lower back (right), Right flank Improved by: Other (nothing) Worsened by: Other (no exacerbating factors) Associated symptoms: Nausea. No: Fever, Vomiting, Diarrhea, Constipation Similar symptoms before: Diagnosis (similar to previous renal colic) Recently seen: Not recently seen - Additional information Additional information: c/o 3 days of intermittent right flank and right parathoracic pain with nausea but no vomiting. tylenol without improvement. Patient feels symptoms are similar to previous episodes of renal colic. Review of Systems Constitutional: reports: Reviewed and negative Cardiac: reports: Reviewed and negative Respiratory: reports: Reviewed and negative GI: reports: Abdominal Pain, Nausea. denies: Vomiting, Constipation, Diarrhea : denies: Dysuria, Frequency, Hematuria PD PAST MEDICAL HISTORY - Past Medical History Past Medical History: No Cardiovascular: None Respiratory: Sleep apnea, Other Neuro: None Endocrine/Autoimmune: None GI: Other VIDEOTAPE EDITOR: None : Kidney stones HEENT: Chronic sinusitis Psych: None Musculoskeletal: None Derm: None - Past Surgical History Past Surgical History: Yes General: Appendectomy, Other /VIDEOTAPE EDITOR: Other - Present Medications Home Medications: Ambulatory Orders Medication Instructions Recorded Confirmed traMADol [Ultram] 50 mg PO Q4-6H 10/08/16 06/26/21 Cyclobenzaprine [Flexeril] 10 mg PO TID PRN 06/09/17 11/24/20 Gabapentin 300 mg PO DAILY 03/23/19 06/26/21 Duloxetine HCl [Cymbalta] 90 mg PO DAILY PM 11/24/20 06/26/21 Meloxicam [Mobic] 7.5 mg PO DAILY PM 11/24/20 06/26/21 Ondansetron Odt [Zofran] 4 mg TL Q6H PRN #10 tablet 04/18/21 06/26/21 Oxycodone HCl/Acetaminophen 1 - 2 each PO Q6H PRN #14 tablet 06/26/21 [Percocet 5-325 mg Tablet] - Allergies Allergies/Adverse Reactions: Allergies Allergy/AdvReac Type Severity Reaction Status Date / Time meperidine HCl * AdvReac Unknown family hx Verified 06/26/21 18:38 [From Demerol] of cardiac arrest seasonal allergies Allergy Unknown Uncoded 04/18/21 11:25 - Social History Does the pt smoke?: No Smoking Status: Never smoker Does the pt drink ETOH?: No Does the pt have substance abuse?: No - Immunizations Immunizations are current?: Yes - POLST Patient has POLST: No PD ED PE NORMAL - Vitals Vital signs reviewed: Yes - General General: Alert and oriented X 3, No acute distress, Well developed/nourished - Cardiac Cardiac: RRR, No murmur - Respiratory Respiratory: No respiratory distress, Clear bilaterally - Abdomen Abdomen: Normal bowel sounds, Soft, Non tender, Non distended - Back Back: No CVA TTP - Derm Derm: No rash Results - Vitals Vitals: Oxygen O2 Source Room air - Labs Labs: Laboratory Tests 12/14/21 12/14/21 12/14/21 04:08 05:11 05:11 WBC 7.2 RBC 4.76 Hgb 13.9 Hct 42.4 MCV 89.1 MCH 29.2 MCHC 32.8 RDW 13.7 Plt Count 272 MPV 10.1 Neut # (Auto) 4.2 Lymph # (Auto) 2.2 [place] # (Auto) 0.6 Eos # (Auto) 0.2 Baso # (Auto) 0.0 Absolute Nucleated RBC 0.00 Nucleated RBC % 0.0 Sodium 136 Potassium 3.5 Chloride 103 Carbon Dioxide 24 Anion Gap 9.0 BUN 12 Creatinine 0.8 Estimated GFR (MDRD) 79 L Glucose 102 H Calcium 8.8 Total Bilirubin 0.5 AST 17 ALT 14 Alkaline Phosphatase 81 Total Protein 7.5 Albumin 3.9 Globulin 3.6 Albumin/Globulin Ratio 1.1 Lipase 28 Urine Color YELLOW Urine Clarity CLEAR Urine pH 6.0 Ur Specific [place] >=1.030 H Urine Protein TRACE Urine Glucose (UA) NEGATIVE Urine Ketones NEGATIVE Urine Occult Blood NEGATIVE Urine Nitrite NEGATIVE Urine Bilirubin NEGATIVE Urine Urobilinogen 1 (NORMAL) Ur Leukocyte Esterase NEGATIVE Ur Microscopic Review NOT INDICATED Urine Culture Comments NOT INDICATED Urine HCG, Qual NEGATIVE - Rads (name of study) CT A/P Radiology: Prelim report reviewed, See rad report PD MEDICAL DECISION MAKING - ED course Complexity details: reviewed old records, reviewed results, re-evaluated patient, considered differential, d/w patient ED course: presents with right flank pain c/w previous episodes of renal colic. unremarkable CBC, abdominal panel, and UA. CT A/P does not demonstrate etiology of her symptoms; there are bilateral nonobstructing kidney stones and small right adnexal cyst. given IV toradol, dilaudid, and zofran and on reevaluation, patient reports good symptom relief. Results d/w patient, return precautions discussed. Given take-home pack of percocet. Departure - Departure Disposition: Home, Self Care Clinical Impression: Right flank pain Condition: Good Instructions: ED Flank Pain Uncertain Cause Comments: The cause of your pain is not apparent at this time. Your test results have no remarkable or concerning findings. Your urinalysis does not suggest an infectious cause, and the CT scan does not show any evidence of obstruction due to kidney stone (you do have kidney stones in both kidneys, but they are not in a location that would cause any symptoms). A small right pelvic cyst is noted, which is likely incidental (I doubt this is causing your pain, due to it's location (your pain is higher up in the back and flank and not the pelvic area) and its size (the cyst is small). Forms: Activity restrictions Discharge Date/Time: 12/14/21 06:52
[2021-12-14 04:15] LABS: BILIRUBIN,URINE NEGATIVE (NEGATIVE); GLUCOSE, URINE (UA) NEGATIVE (NEGATIVE); KETONES,URINE (UA) NEGATIVE (NEGATIVE); LEUKOCYTE ESTERASE, URINE NEGATIVE (NEGATIVE); NITRITE,URINE NEGATIVE (NEGATIVE); OCCULT BLOOD,URINE NEGATIVE (NEGATIVE); PROTEIN,URINE TRACE mg/dL (NEGATIVE); UROBILINOGEN,URINE 1 (NORMAL) E.U./dL (NORMAL)
[2021-12-14 04:17] LABS: CLARITY,URINE CLEAR (CLEAR)
[2021-12-14 04:19] LABS: HCG UR QUAL NEGATIVE
[2021-12-14] MEDS ORDERED: ONDANSETRON 4 MG/2 ML VIAL IVP STA (04:21)
[2021-12-14] MEDS ORDERED: HYDROmorphone 1 MG/ML CARPUJECT IVP STA (04:21)
[2021-12-14 05:17] LABS: BASOPHILS % (AUTO) 0.4 %; EOSINOPHILS # (AUTO) 0.2 10^3/uL (0.0-0.7); EOSINOPHILS % (AUTO) 2.5 %; HCT - HEMATOCRIT 42.4 % (37.0-47.0); HGB - HEMOGLOBIN 13.9 g/dL (12.0-16.0); LYMPHOCYTES # (AUTO) 2.2 10^3/uL (1.5-3.5); LYMPHOCYTES % (AUTO) 30.3 %; MEAN CORPUSCULAR HEMOGLOBIN 29.2 pg (27.0-31.0); MEAN CORPUSCULAR HGB CONC 32.8 g/dL (32.0-36.0); MEAN CORPUSCULAR VOLUME 89.1 fL (81.0-99.0); MEAN PLATELET VOLUME 10.1 fL (7.9-10.8); MONOCYTES # (AUTO) 0.6 10^3/uL (0.0-1.0); MONOCYTES % (AUTO) 8.1 %; NEUTROPHILS # (AUTO) 4.2 10^3/uL (1.5-6.6); NEUTROPHILS % (AUTO) 58.4 %; PLT - PLATELET COUNT 272 10^3/uL (130-450); RED BLOOD COUNT 4.76 10^6/uL (4.20-5.40); RED CELL DISTRIBUTION WIDTH 13.7 % (12.0-15.0); WHITE BLOOD COUNT 7.2 x10^3/uL (4.8-10.8)
[2021-12-14 05:31] LABS: ALBUMIN 3.9 g/dL (3.2-5.5); ALBUMIN/GLOBULIN RATIO 1.1 (1.0-2.2); BILIRUBIN,TOTAL 0.5 mg/dL (0.2-1.0); CALCIUM 8.8 mg/dL (8.5-10.3); CREATININE 0.8 mg/dL (0.4-1.0); POTASSIUM 3.5 mmol/L (3.5-5.0); TOTAL PROTEIN 7.5 g/dL (6.7-8.2)
[2021-12-14 05:47] VITALS: BP 130/68
[2021-12-14] MEDS ORDERED: oxyCODONE/ACET 5/325 Prepack 4 PO STA (06:40)
--- NOTE | 2021-12-14 08:48 | CT Report ---
PROCEDURE: Abdomen/Pelvis WO INDICATIONS: right flank pain TECHNIQUE: Noncontrast 5 mm thick sections acquired from the diaphragms to the symphysis. 5 mm coronal and sagi ttal reformats were then performed. For radiation dose reduction, the following was used: automated exposure control, adjustment of mA and/or kV according to patient size. COMPARISON: CT abdomen without, 06/25/2020. FINDINGS: Image quality: Suboptimal due to because of the patient's body habitus. ABDOMEN: Lung bases: Mild basilar scars and atelectasis. Heart size is normal. Solid organs: Liver and spleen are normal in size. There is hepatic steatosis. Gallbladder is portia l Pancreas is normal in contours. No adrenal nodules. Kidneys are normal in size. No hydronephrosis. Possible tiny nonobstructive stones in kidneys bilater ally. The distal ureters are suboptimally visualized suboptimally visualized. Peritoneum and bowel: Unenhanced bowel loops demonstrate normal wall thickness and caliber. No free fluid or air. Nodes and vessels: No retroperitoneal or mesenteric adenopathy by size criteria. Aorta and inferior vena cava are normal in caliber. Miscellaneous: No ventral hernias. PELVIS: Genitourinary: Bladder wall thickness is normal. There is a 3.5 cm cyst in the right ovary. Left ov lincoln appears normal. Uterus is unremarkable. There is no pathological free fluid in the cul-de-sac. Miscellaneous: No inguinal hernias or adenopathy. Bones: No suspicious bony lesions. No vertebral body compression fractures. IMPRESSION: 1. No hydronephrosis.. 2. Possible tiny stones in kidneys. 3. A 3.5 cm cyst in the right ovary. Recommend pelvic ultrasound for follow-up. 4. Suboptimal examination due to patient's body habitus. No significant discrepancy with the preliminary interpretation. Reviewed by: Maninder Ham MD on 12/14/2021 8:46 AM PDT Approved by: Maninder Ham MD on 12/14/2021 8:46 AM PDT Station ID: [id number]
== END 2021-12-14 06:52 | disposition home or self-care (01) ==
LOC: ED 03:38
DX: M54.6 Pain in thoracic spine (principal)
CPT/HCPCS: 36415; 74176; 80053; 81003; 81025; 83690; 85025; 96374; 96375; 99284; J1170; 81001; 87086

== ENCOUNTER 2022-03-05 08:00 | Outpatient (CLI) | payer BC ==
--- NOTE | 2022-03-05 17:27 | XRAY Report ---
PROCEDURE: Knee 4 View RT INDICATIONS: KNEE PAIN TECHNIQUE: 4 views of the right knee(s) were acquired. COMPARISON: None. FINDINGS: Bones: No fractures or dislocations. No suspicious bony lesions. There is severe tricompartmental arthritic change most notable in the medial compartment. Prominent periarticular osteophytes are pres ent. No definitive erosions are identified. Soft tissues: Joint effusion cannot be evaluated secondary to [id number] on lateral image. No susp icious soft tissue calcifications. IMPRESSION: Significant tricompartmental arthritic change. Reviewed by: Jeri Epstein MD on 03/05/2022 5:26 PM PDT Approved by: Jeri Epstein MD on 03/05/2022 5:26 PM PDT Station ID: [id number]
== END 2022-03-05 23:59 | disposition home or self-care (01) ==
LOC: DI.WOS 08:00
PROVIDERS: ATTEND Physician Assistant
DX: M17.11 Unilateral primary osteoarthritis, right knee (principal)

== ENCOUNTER 2022-06-19 07:11 | Emergency (ER) | payer BC ==
[2022-06-19] MEDS ORDERED: ONDANSETRON 4 MG/2 ML VIAL IVP STA (07:39)
[2022-06-19] MEDS ORDERED: SODIUM CHLORIDE 0.9% 1,000 ML IV STA (07:39)
[2022-06-19] MEDS ORDERED: MORPHINE 2 MG/ML CARPUJECT IVP STA (07:39)
[2022-06-19 08:08] LABS: BASOPHILS % (AUTO) 0.6 %; EOSINOPHILS # (AUTO) 0.2 10^3/uL (0.0-0.7); EOSINOPHILS % (AUTO) 3.4 %; HCT - HEMATOCRIT 44.9 % (37.0-47.0); HGB - HEMOGLOBIN 13.4 g/dL (12.0-16.0); LYMPHOCYTES # (AUTO) 1.9 10^3/uL (1.5-3.5); LYMPHOCYTES % (AUTO) 28.7 %; MEAN CORPUSCULAR HEMOGLOBIN 29.4 pg (27.0-31.0); MEAN CORPUSCULAR HGB CONC 29.8 g/dL (32.0-36.0); MEAN CORPUSCULAR VOLUME 98.5 fL (81.0-99.0); MEAN PLATELET VOLUME 11.1 fL (7.9-10.8); MONOCYTES # (AUTO) 0.4 10^3/uL (0.0-1.0); MONOCYTES % (AUTO) 5.9 %; NEUTROPHILS # (AUTO) 3.9 10^3/uL (1.5-6.6); NEUTROPHILS % (AUTO) 60.6 %; PLT - PLATELET COUNT 220 10^3/uL (130-450); RED BLOOD COUNT 4.56 10^6/uL (4.20-5.40); RED CELL DISTRIBUTION WIDTH 13.8 % (12.0-15.0); WHITE BLOOD COUNT 6.5 x10^3/uL (4.8-10.8)
[2022-06-19 08:21] LABS: ALBUMIN 3.7 g/dL (3.2-5.5); ALBUMIN/GLOBULIN RATIO 1.1 (1.0-2.2); BILIRUBIN,TOTAL 0.3 mg/dL (0.2-1.0); CALCIUM 8.9 mg/dL (8.5-10.3); POTASSIUM 3.4 mmol/L (3.5-5.0)
[2022-06-19 08:31] LABS: BILIRUBIN,URINE NEGATIVE (NEGATIVE); GLUCOSE, URINE (UA) NEGATIVE (NEGATIVE); KETONES,URINE (UA) NEGATIVE (NEGATIVE); LEUKOCYTE ESTERASE, URINE NEGATIVE (NEGATIVE); NITRITE,URINE NEGATIVE (NEGATIVE); OCCULT BLOOD,URINE MODERATE (NEGATIVE); PROTEIN,URINE TRACE mg/dL (NEGATIVE); UROBILINOGEN,URINE 0.2 (NORMAL) E.U./dL (NORMAL)
[2022-06-19 08:33] LABS: CLARITY,URINE HAZY (CLEAR); HCG UR QUAL NEGATIVE
--- NOTE | 2022-06-19 08:35 | CT Report ---
PROCEDURE: ABDOMEN/PELVIS WO INDICATIONS: R flank pain TECHNIQUE: Noncontrast 5 mm thick sections acquired from the diaphragms to the symphysis. 5 mm coronal and sagi ttal reformats were then performed. For radiation dose reduction, the following was used: automated exposure control, adjustment of mA and/or kV according to patient size. COMPARISON: 12/14/2021 FINDINGS: Image quality: Increased BMI with marked attenuation of structures in the deep pelvis significantly d ecreasing the ability to identify pathology.. ABDOMEN: Lung bases: Lung bases are clear. Heart size is normal. Solid organs: Liver and spleen are normal in size. Gallbladder is unremarkable. Pancreas is normal in contours. No adrenal nodules. Although the distal ureter cannot be followed secondary to artifac t, there has been development of moderate right hydronephrosis and proximal hydroureter. This was not present in November,. A ureteral stone is suspected. No left hydronephrosis. Peritoneum and bowel: Unenhanced bowel loops demonstrate normal wall thickness and caliber. No free fluid or air. Nodes and vessels: No retroperitoneal or mesenteric adenopathy by size criteria. Aorta and inferior vena cava are normal in caliber. Miscellaneous: No ventral hernias. PELVIS: Genitourinary: Bladder not well seen secondary to artifact. Miscellaneous: No inguinal hernias or adenopathy. Bones: Lumbar degenerative change. Extensive artifact. IMPRESSION: Interval development of moderate right hydronephrosis and proximal hydroureter. Suspect right uretera l stone. Reviewed by: Cecil Claudio MD on 06/19/2022 8:33 AM PDT Approved by: Cecil Claudio MD on 06/19/2022 8:33 AM PDT Station ID: [id number]
[2022-06-19 08:37] LABS: BACTERIA,URINE Few /HPF (None Seen); SQUAMOUS EPITHELIAL CELL,UR MOD Squamous (<= Few); WBC,URINE 0-3 /HPF (0-5)
[2022-06-19 08:38] LABS: CRYSTALS,URINE 3-5 Calcium Oxalate /LPF
[2022-06-19] MEDS ORDERED: POTASSIUM CHLORIDE 20 MEQ TABLET PO STA (08:55)
--- NOTE | 2022-06-19 08:55 | ED Physician Documentation ---
PD HPI ABD PAIN - Stated complaint Stated Complaint: R SIDE PAIN - Chief complaint Chief Complaint: Abd Pain - History obtained from History obtained from: Patient - Additional information Additional information: Patient is a 41-year-old female presenting for evaluation of right flank pain that started yesterday morning. It is sharp and throbbing in nature. It radiates to the right lower quadrant of her abdomen. She has associated nausea which is improved by Zofran that she has at home. She has a history of kidney stones and reports this feels similar. She has noticed a blood tinge to her ur ine in the last several days. She denies vaginal bleeding or discharge or concerns for .She does have Flomax at home and did start this yesterday. She denies chest pain, Difficulty breathing, fevers, dysuria. Review of Systems Constitutional: denies: Fever Nose: denies: Congestion Cardiac: denies: Chest pain / pressure Respiratory: denies: Dyspnea GI: reports: Abdominal Pain, Nausea. denies: Vomiting, Diarrhea : reports: Hematuria. 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 : Kidney stones HEENT: Chronic sinusitis Psych: None Musculoskeletal: Osteoarthritis Derm: None - Past Surgical History Past Surgical History: Yes General: Appendectomy, Other /INSPECTOR PUBLICATIONS: Other - Present Medications Home Medications: Ambulatory Orders Medication Instructions Recorded Confirmed traMADol [Ultram] 50 mg PO Q4-6H PRN 10/08/16 06/19/22 Cyclobenzaprine [Flexeril] 10 mg PO TID PRN 06/09/17 06/19/22 Gabapentin 300 mg PO DAILY 03/23/19 06/19/22 Duloxetine HCl [Cymbalta] 90 mg PO DAILY PM 11/24/20 06/19/22 Meloxicam [Mobic] 7.5 mg PO DAILY PM 11/24/20 06/19/22 Ondansetron Odt [Zofran] 4 mg TL Q6H PRN #10 tablet 04/18/21 06/19/22 Magnesium Glycinate, Mag Oxide 120 mg PO DAILY 06/19/22 06/19/22 [Magnesium Glycinate] Multivitamin 1 tab ORAL DAILY 06/19/22 06/19/22 Ondansetron Odt [Zofran] 4 mg TL Q6H PRN #10 tablet 06/19/22 Oxycodone HCl/Acetaminophen 1 each PO Q6H PRN #14 tablet 06/19/22 [Percocet 5-325 mg Tablet] Tamsulosin [Flomax] 0.4 mg PO DAILY #14 cap 06/19/22 - Allergies Allergies/Adverse Reactions: Allergies Allergy/AdvReac Type Severity Reaction Status Date / Time meperidine HCl * AdvReac Unknown family hx Verified 06/19/22 07:20 [From Demerol] of cardiac arrest seasonal allergies Allergy Unknown Uncoded 04/18/21 11:25 - Social History Does the pt smoke?: No Smoking Status: Never smoker Does the pt drink ETOH?: No Does the pt have substance abuse?: No - Immunizations Immunizations are current?: Yes - POLST Patient has POLST: No PD ED PE NORMAL - General General: Alert and oriented X 3, No acute distress, Well developed/nourished - HEENT HEENT: Atraumatic, Moist mucous membranes - Neck Neck: Supple, no meningeal sign - Cardiac Cardiac: RRR, Strong equal pulses - Respiratory Respiratory: No respiratory distress, Clear bilaterally - Abdomen Abdomen: Normal bowel sounds, Soft, Non tender, Non distended - Derm Derm: Warm and dry - Extremities Extremities: No edema - Neuro Neuro: Normal speech Results - Vitals Vitals: Vital Signs - 24 hr 06/19/22 06/19/22 06/19/22 07:20 08:40 09:13 Temperature 36 C L 37.4 C Heart Rate 113 H 94 81 Respiratory 22 22 22 Rate Blood Pressure 149/90 H 146/78 H 125/67 O2 Saturation 99 99 100 Oxygen O2 Source Room air - Labs Labs: Laboratory Tests 06/19/22 06/19/22 06/19/22 08:04 08:04 08:05 WBC 6.5 RBC 4.56 Hgb 13.4 Hct 44.9 MCV 98.5 MCH 29.4 MCHC 29.8 L RDW 13.8 Plt Count 220 MPV 11.1 H Neut # (Auto) 3.9 Lymph # (Auto) 1.9 Peach # (Auto) 0.4 Eos # (Auto) 0.2 Baso # (Auto) 0.0 Absolute Nucleated RBC 0.00 Nucleated RBC % 0.0 Sodium 142 Potassium 3.4 L Chloride 112 H Carbon Dioxide 18 L Anion Gap 12.0 BUN 15 Creatinine 1.0 Estimated GFR (MDRD) 61 L Glucose 122 H Calcium 8.9 Total Bilirubin 0.3 AST 20 ALT 15 Alkaline Phosphatase 87 Total Protein 7.0 Albumin 3.7 Globulin 3.3 Albumin/Globulin Ratio 1.1 Lipase 33 Urine Color YELLOW Urine Clarity HAZY Urine pH 6.0 Ur Specific [place] >=1.030 H Urine Protein TRACE Urine Glucose (UA) NEGATIVE Urine Ketones NEGATIVE Urine Occult Blood MODERATE H Urine Nitrite NEGATIVE Urine Bilirubin NEGATIVE Urine Urobilinogen 0.2 (NORMAL) Ur Leukocyte Esterase NEGATIVE Urine RBC 11-25 H Urine WBC 0-3 Ur Squamous Epith Cells MOD Squamous H Urine Crystals 3-5 Calcium Oxalate Urine Bacteria Few Ur Microscopic Review INDICATED Urine Culture Comments NOT INDICATED Urine HCG, Qual NEGATIVE PD MEDICAL DECISION MAKING - ED course Complexity details: reviewed results, re-evaluated patient, d/w patient, d/w family ED course: Patient presenting for evaluation of right flank pain. Initially tachycardic which quickly resolved after IV fluids. Labs are reassuring. She does not appear septic. CT scan with findings suggestive of a right ureter stone. Pain is well controlled here. Patient is familiar with treatment plan and advised on return precautions. 0855 - Patient feeling better. Pain is improved. She no longer has a urologist as her previous one had moved away. She does have a primary care doctor. She is familiar with treatment for stones as well as return precautions Departure - Departure Disposition: 01 Home, Self Care Clinical Impression: Right ureteral stone Condition: Stable Instructions: ED Stone Renal W Colic Follow-Up: Tarsha Cisneros PA-C [Primary Care Provider] - Prescriptions: Tamsulosin [Flomax] 0.4 mg PO DAILY #14 cap Oxycodone HCl/Acetaminophen [Percocet 5-325 mg Tablet] 1 each PO Q6H PRN #14 tablet PRN Reason: pain Ondansetron Odt [Zofran] 4 mg TL Q6H PRN #10 tablet PRN Reason: Nausea / Vomiting Comments: Your CT scan shows signs of a stone in your right ureter (tube connecting kidney to your bladder).I have sent prescriptions for Flomax as well as pain medication and nausea medications to [facility] in [place]. Please call your primary care Provider for close follow-up. Return to the emergency department if you have any worsening symptoms such as fever, uncontrolled pain, any concerns. Discharge Date/Time: 06/19/22 10:00
[2022-06-19] MEDS ORDERED: oxyCODONE 5 MG TABLET PO STA (08:56)
[2022-06-19 09:15] VITALS: BP 125/67
== END 2022-06-19 10:00 | disposition home or self-care (01) ==
LOC: ED 07:11
DX: N20.1 Calculus of ureter (principal); R00.0 Tachycardia, unspecified
CPT/HCPCS: 36415; 74176; 80053; 81001; 81025; 83690; 85025; 96361; 96374; 96375; 99284; A9270; 81003; 87086

== ENCOUNTER 2023-05-09 08:00 | Outpatient (CLI) | payer BC, MEDICAID ==
[2023-05-09 12:29] LABS: BILIRUBIN,URINE NEGATIVE (NEGATIVE); GLUCOSE, URINE (UA) NEGATIVE (NEGATIVE); KETONES,URINE (UA) TRACE mg/dL (NEGATIVE); OCCULT BLOOD,URINE TRACE-INTA (NEGATIVE); PH,URINE 5.5 PH (5.0-7.5)
[2023-05-09 12:34] LABS: CLARITY,URINE SL. CLOUDY (CLEAR)
[2023-05-09 12:45] LABS: BACTERIA,URINE Many /HPF (None Seen); RBC,URINE 0-5 /HPF (0-5); SQUAMOUS EPITHELIAL CELL,UR FEW Squamous (<= Few); WBC CLUMPS,URINE PRESENT; WBC,URINE >25 /HPF (0-5)
== END 2023-05-09 23:59 | disposition home or self-care (01) ==
LOC: LAB.WC 08:00
PROVIDERS: ATTEND Nurse Practitioner
DX: R39.89 Other symptoms and signs involving the genitourinary system (principal)
CPT/HCPCS: 81001; 87086; 87181

== ENCOUNTER 2023-12-17 08:00 | Outpatient (CLI) | payer MEDICAID | END 2023-12-17 23:59 | disposition home or self-care (01) | LOC: LAB.N 08:00 | PROVIDERS: ATTEND Physician Assistant Medical | DX: M25.561 Pain in right knee (principal); Z79.899 Other long term (current) drug therapy; G89.29 Other chronic pain | CPT/HCPCS: 80306; 80307; 80361; 81599 ==

== ENCOUNTER 2024-02-10 00:31 | Emergency (ER) | payer MEDICAID ==
[2024-02-10] MEDS: KETOROLAC 30 MG/ML VIAL IVP STA (01:25)
[2024-02-10] MEDS: SODIUM CHLORIDE 0.9% 1,000 ML IV STA (01:25)
[2024-02-10] MEDS: ONDANSETRON 4 MG/2 ML VIAL IVP STA (01:26)
[2024-02-10] MEDS: HYDROmorphone 1 MG/ML CARPUJECT IVP STA ×2 (01:26→02:54)
[2024-02-10 01:55] LABS: HCG,QUALITATIVE BLOOD NEGATIVE
--- NOTE | 2024-02-10 02:44 | ED Physician Documentation ---
History of Present Illness - Stated complaint Stated Complaint: L SIDE FLANK PX - Chief complaint Chief Complaint: Abd Pain - History obtained from History obtained from: Patient - Additonal information Additional information: The patient comes to the emergency department with chief complaint of left flank pain that started this evening. She states it has been coming in waves and feels like when she has had a kidney stone previously. Patient denies any gross blood in her urine or any dysuria. No fevers. She has had some nausea but no vomiting. She was feeling fine prior to this starting. 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: Other - Present Medications Home Medications: Ambulatory Orders Medication Instructions Recorded Confirmed traMADol [Ultram] 50 mg PO Q4-6H PRN 10/08/16 06/19/22 Cyclobenzaprine [Flexeril] 10 mg PO TID PRN 06/09/17 06/19/22 Gabapentin 300 mg PO DAILY 03/23/19 06/19/22 Duloxetine HCl [Cymbalta] 90 mg PO DAILY PM 11/24/20 06/19/22 Meloxicam [Mobic] 7.5 mg PO DAILY PM 11/24/20 06/19/22 Ondansetron Odt [Zofran] 4 mg TL Q6H PRN #10 tablet 04/18/21 06/19/22 Magnesium Glycinate, Mag Oxide 120 mg PO DAILY 06/19/22 06/19/22 [Magnesium Glycinate] Multivitamin 1 tab ORAL DAILY 06/19/22 06/19/22 Ondansetron Odt [Zofran] 4 mg TL Q6H PRN #10 tablet 06/19/22 Oxycodone HCl/Acetaminophen 1 each PO Q6H PRN #14 tablet 06/19/22 [Percocet 5-325 mg Tablet] Tamsulosin [Flomax] 0.4 mg PO DAILY #14 cap 06/19/22 oxyCODONE [Roxicodone] 5 mg PO TID PRN #15 tablet 05/24/23 HYDROcod/ACETAM 5/325 [[place] 5/325] 1 - 2 tablet PO Q6H PRN #14 tablet 02/10/24 - Allergies Allergies/Adverse Reactions: Allergies Allergy/AdvReac Type Severity Reaction Status Date / Time meperidine HCl * AdvReac Unknown family hx Verified 05/24/23 15:50 [From Demerol] of cardiac arrest seasonal allergies Allergy Unknown Uncoded 05/24/23 15:50 - Social History Does the pt smoke?: No Smoking Status: Never smoker Does the pt drink ETOH?: No Does the pt have substance abuse?: No - Immunizations Immunizations are current?: Yes - POLST Patient has POLST: No PD ED PE NORMAL - Vitals Vital signs reviewed: Yes - General General: Alert and oriented X 3, No acute distress, Well developed/nourished, Other (The patient looks somewhat uncomfortable but is in no apparent distress at this time.) - HEENT HEENT: Atraumatic, EOMI, Moist mucous membranes - Neck Neck: Supple, no meningeal sign - Cardiac Cardiac: RRR, No murmur - Respiratory Respiratory: No respiratory distress, Clear bilaterally - Abdomen Abdomen: Soft, Non tender, Other (Morbidly obese, no abdominal tenderness.) - Back Back: Other (Moderate left flank tenderness) - Derm Derm: Normal color, Warm and dry, No rash - Extremities Extremities: No deformity - Neuro Neuro: Other (Alert, grossly intact) - Psych Psych: Normal mood, Normal affect Results - Vitals Vitals: Vital Signs - 24 hr 02/10/24 00:37 Temperature 36.2 C L Heart Rate 100 Respiratory 20 Rate Blood Pressure 213/98 H O2 Saturation 97 Oxygen O2 Source Room air - Labs Labs: Laboratory Tests 02/10/24 01:30 Serum HCG, Qual NEGATIVE - Rads (name of study) CT abdomen pelvis no contrast Relevant Findings:: Final report received, See rad report (3 mm stone left mid ureter.) PD Medical Decision Making - ED course Complexity details: reviewed results, re-evaluated patient, considered differential, d/w patient ED course: The patient was treated symptomatically with IV fluids, Zofran, Toradol, and Dilaudid. She was feeling better but did need a second dose of Dilaudid to get full control of her pain. Noncontrast CT did show a small stone that was passing on the left side. I discussed this with the patient. We have discussed symptomatic management at home and the usual indications for return. Departure - Departure Disposition: 01 Home, Self Care Clinical Impression: Kidney stone on left side Condition: Stable Instructions: ED Stone Renal W Colic Prescriptions: HYDROcod/ACETAM 5/325 [[place]agerman 5/325] 1 - 2 tablet PO Q6H PRN #14 tablet PRN Reason: Pain Comments: Your CT scan shows a kidney stone that is about midway down your ureter on the left. This appears to be fairly small and a very passable size. You have been treated with IV fluids and pain meds here, as well as an oral medication to relax your ureter a bit to facilitate passage of the stone. A prescription for some pain medication has been electronically transmitted to the [facility] pharmacy in [place]. Please do not drive for at least the next 6 hours as you have been given sedating medication here. Please call the urology office if you do not have relief of your symptoms after the next week. If you develop fevers or pain or burning with urination, please return to the emergency department. Forms: PCP List
[2024-02-10] MEDS: TAMSULOSIN 0.4 MG CAPSULE PO STA (02:54)
[2024-02-10 03:25] VITALS: BP 182/88; O2SAT 98
--- NOTE | 2024-02-10 08:20 | CT Report ---
PROCEDURE: Abdomen/Pelvis WO INDICATIONS: L flank pain TECHNIQUE: A CT scan of the abdomen and pelvis was performed without the use of intravenous contrast. Images we re recorded and evaluated at appropriate window settings. Reformats: coronal and sagittal. For radiat ion dose reduction, the following was used: automated exposure control, adjustment of mA and/or kV ac cording to patient size. COMPARISON: CT abdomen and pelvis without contrast dated 06/19/2022. FINDINGS: Image quality: Diagnostic. Lower chest: Unremarkable. Liver: No contour-deforming mass. Gallbladder: No radiopaque stones or wall thickening. Biliary tree: No intrahepatic or extrahepatic dilation, accounting for age. Spleen: No splenomegaly. Pancreas: No pancreatic ductal dilation. Adrenals: No adrenal nodule. Right Kidney: Unremarkable, without stones or hydronephrosis. Right Ureter: Unremarkable Left Kidney: Mild hydronephrosis. Left Ureter: A stone measuring 3 mm obstructing the proximal left ureter at the level of L4-L5 result ing in mild hydroureter and hydronephrosis. Stomach, bowel and peritoneum: No gastric or small bowel dilation. No abnormal wall thickening. No pa thologic free fluid. Lymph nodes: No central or retroperitoneal adenopathy. Vessels: No infrarenal aortic aneurysm. Reproductive organs: 3.4 cm right adnexal cyst. Bladder: Bladder wall thickness is normal, accounting for underdistention. No calcified bladder stone s. Pelvic lymph nodes: No adenopathy by size criteria. Bones: No aggressive osseous abnormality. Other: No significant ventral or inguinal hernia. IMPRESSION: 1. 3 mm stone obstructs the left ureter at the level of L4-L5 resulting in mild left hydroureter and hydronephrosis. Findings are concordant with preliminary interpretation provided by [facility]. Reviewed by: Cecil Claudio MD on 02/10/2024 8:18 AM PDT Approved by: Cecil Claudio MD on 02/10/2024 8:18 AM PDT Station ID: [id number]
== END 2024-02-10 03:18 | disposition home or self-care (01) ==
LOC: ED 00:31
DX: N13.2 Hydronephrosis with renal and ureteral calculous obstruction (principal)
CPT/HCPCS: 36415; 74176; 84703; 96374; 96375; 96376; 99284; A9270; J1170

== ENCOUNTER 2024-02-12 07:36 | Emergency (ER) | payer SELFPAY ==
--- NOTE | 2024-02-12 08:00 | ED Physician Documentation ---
PD HPI ABD PAIN - Stated complaint Stated Complaint: LOWER LT ABD PX - History obtained from History obtained from: Patient - History of Present Illness Timing - onset: How many days ago Timing - duration: Days (2) Timing - details: Abrupt onset, Still present Quality: Aching, Pain Location: LLQ Radiation: Left flank Worsened by: No: Moving, Breathing, Palpation Associated symptoms: Nausea. No: Fever, Diarrhea, Constipation Similar symptoms before: Diagnosis (multiple kidney stones in the past.) Recently seen: Emergency Dept (with CT showing stone left ureter) Review of Systems Constitutional: denies: Fever, Chills GI: reports: Nausea. 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 SOLUTIONS: Other - Present Medications Home Medications: Ambulatory Orders Medication Instructions Recorded Confirmed traMADol [Ultram] 50 mg PO Q4-6H PRN 10/08/16 06/19/22 Cyclobenzaprine [Flexeril] 10 mg PO TID PRN 06/09/17 06/19/22 Gabapentin 300 mg PO DAILY 03/23/19 06/19/22 Duloxetine HCl [Cymbalta] 90 mg PO DAILY PM 11/24/20 06/19/22 Meloxicam [Mobic] 7.5 mg PO DAILY PM 11/24/20 06/19/22 Ondansetron Odt [Zofran] 4 mg TL Q6H PRN #10 tablet 04/18/21 06/19/22 Magnesium Glycinate, Mag Oxide 120 mg PO DAILY 06/19/22 06/19/22 [Magnesium Glycinate] Multivitamin 1 tab ORAL DAILY 06/19/22 06/19/22 Ondansetron Odt [Zofran] 4 mg TL Q6H PRN #10 tablet 06/19/22 Oxycodone HCl/Acetaminophen 1 each PO Q6H PRN #14 tablet 06/19/22 [Percocet 5-325 mg Tablet] Tamsulosin [Flomax] 0.4 mg PO DAILY #14 cap 06/19/22 oxyCODONE [Roxicodone] 5 mg PO TID PRN #15 tablet 05/24/23 HYDROcod/ACETAM 5/325 [[place] 5/325] 1 - 2 tablet PO Q6H PRN #14 tablet 02/10/24 Oxycodone HCl/Acetaminophen 1 each PO Q6H PRN #20 tablet 02/12/24 [Percocet 7.5-325 mg Tablet] - Allergies Allergies/Adverse Reactions: Allergies Allergy/AdvReac Type Severity Reaction Status Date / Time meperidine HCl * AdvReac Unknown family hx Verified 02/12/24 08:03 [From Demerol] of cardiac arrest seasonal allergies Allergy Unknown Uncoded 02/12/24 08:03 - Social History Does the pt smoke?: No Smoking Status: Never smoker Does the pt drink ETOH?: No Does the pt have substance abuse?: No - Immunizations Immunizations are current?: Yes - POLST Patient has POLST: No PD ED PE NORMAL - Vitals Vital signs reviewed: Yes - General General: Alert and oriented X 3, Well developed/nourished, Other (appears in pain) - Abdomen Abdomen: Soft, Other (high BMI. tender without percussion nor rebound in lower abdomen.) - Back Back: Other (CVA tenderness noted) Results - Vitals Vitals: Oxygen O2 Source Room air PD Medical Decision Making - ED course Complexity details: reviewed old records (CT KUB from last visit reviewed showing the stone passing. ), re-evaluated patient (improved pain level to tolerable with IM meds of toradol and dilaudid. ), considered differential (kidney stone pain with CT showing it 3 mm recent ED visit. Not improved with hydrocodone. Takes Tramadol regularly so may need to have higher dose or oxycodone to overcome some tolerance. Given IM meds here as not vomiting and does not seem dehydrated. ), d/w patient, other (Pharmacy review shows pt gets tramadol up to 4 daily regular script. She does have added pain now with the kidney stone so short term extra pain meds seems reasonable to me. ) Departure - Departure Disposition: 01 Home, Self Care Clinical Impression: Left sided abdominal pain, Ureterolithiasis Condition: Stable Record reviewed to determine appropriate education?: Yes Instructions: ED Stone Renal W Colic Follow-Up: Tarsha Cisneros PA-C [Primary Care Provider] - Beau Oates MD [Provider Admit Priv/Credential] - Prescriptions: Oxycodone HCl/Acetaminophen [Percocet 7.5-325 mg Tablet] 1 each PO Q6H PRN #20 tablet PRN Reason: Pain 5-7 Comments: Continue with your meloxicam, stay well-hydrated, Flomax daily for the next several days until this passes. Nausea medicine if needed. I wrote a prescription for oxycodone and see if that works better than the hydrocodone. It was sent to [facility] pharmacy. Follow-up with urology if not passed the stone over the next several days to week. Return if worse pains etc. Forms: PCP List Discharge Date/Time: 02/12/24 09:19
[2024-02-12] MEDS: HYDROmorphone 2 MG/ML VIAL IM STA (08:09)
[2024-02-12] MEDS: ONDANSETRON ODT 4 MG TABLET TL STA (08:09)
[2024-02-12] MEDS: KETOROLAC 30 MG/ML VIAL IM STA (08:09)
[2024-02-12 08:11] VITALS: O2SAT 100
[2024-02-12] MEDS: oxyCODONE 5 MG TABLET PO STA (09:17)
[2024-02-12 09:31] VITALS: BP 128/88
== END 2024-02-12 09:19 | disposition home or self-care (01) ==
LOC: ED 07:36
DX: N20.1 Calculus of ureter (principal)
CPT/HCPCS: 96372; 99283; A9270; J1170; Q0162

== ENCOUNTER 2024-04-14 12:49 | Emergency (ER) | payer BC ==
[2024-04-14 13:18] LABS: BASOPHILS % (AUTO) 0.3 %; EOSINOPHILS # (AUTO) 0.2 10^3/uL (0.0-0.7); EOSINOPHILS % (AUTO) 2.2 %; HCT - HEMATOCRIT 43.8 % (37.0-47.0); LYMPHOCYTES # (AUTO) 2.4 10^3/uL (1.5-3.5); LYMPHOCYTES % (AUTO) 33.4 %; MEAN CORPUSCULAR HEMOGLOBIN 29.1 pg (27.0-31.0); MEAN CORPUSCULAR VOLUME 91.1 fL (81.0-99.0); MEAN PLATELET VOLUME 9.7 fL (7.9-10.8); MONOCYTES # (AUTO) 0.6 10^3/uL (0.0-1.0); MONOCYTES % (AUTO) 7.7 %; PLT - PLATELET COUNT 296 10^3/uL (130-450); RED BLOOD COUNT 4.81 10^6/uL (4.20-5.40); RED CELL DISTRIBUTION WIDTH 14.6 % (12.0-15.0); WHITE BLOOD COUNT 7.2 x10^3/uL (4.8-10.8)
[2024-04-14 13:32] LABS: ALBUMIN 3.8 g/dL (3.2-5.5); ALBUMIN/GLOBULIN RATIO 1.1 (1.0-2.2); BILIRUBIN,TOTAL 0.4 mg/dL (0.2-1.0); CREATININE 0.8 mg/dL (0.6-1.3); POTASSIUM 3.6 mmol/L (3.5-4.5); TOTAL PROTEIN 7.4 g/dL (6.4-8.9)
--- NOTE | 2024-04-14 13:34 | ED Physician Documentation ---
PD HPI ABD PAIN - Stated complaint Stated Complaint: LOW RT ABD PX - Chief complaint Chief Complaint: Abd Pain - History obtained from History obtained from: Patient - Additional information Additional information: 43-year-old female presents with right lower pelvic pain since yesterday, worsening today. Companied by nausea no vomiting, no dysuria urgency or frequency, no vaginal bleeding, no diarrhea or constipation. She has a history of ureteral stones, but has not any flank pain with this, has had a prior appendectomy, and is on Depo and not sexually active. She denies any concern for STI, no concern for . She states she thought she may be just getting her menstrual period, she does not bleed often with her Depo but does sometimes have menstrual symptoms, but this felt worse than normal. She has not attempted any medication prior to arrival. Review of Systems Constitutional: reports: Reviewed and negative Eyes: reports: Reviewed and negative Ears: reports: Reviewed and negative Nose: reports: Reviewed and negative Throat: reports: Reviewed and negative Cardiac: reports: Reviewed and negative Respiratory: reports: Reviewed and negative GI: reports: Abdominal Pain, Nausea. denies: Vomiting, Constipation, Diarrhea : reports: Reviewed and negative Skin: reports: Reviewed and negative Musculoskeletal: reports: Reviewed and negative Neurologic: reports: Reviewed and negative Psychiatric: reports: Reviewed and negative Endocrine: reports: Reviewed and negative PD PAST MEDICAL HISTORY - Past Medical History Past Medical History: Yes Cardiovascular: None Respiratory: Sleep apnea, Other Neuro: None Endocrine/Autoimmune: None GI: Other AUDIO VISUAL DIRECTOR: None : Kidney stones HEENT: Chronic sinusitis Psych: None Musculoskeletal: Osteoarthritis Derm: None - Past Surgical History Past Surgical History: Yes General: Appendectomy, Other /AUDIO VISUAL DIRECTOR: Other - Present Medications Home Medications: Ambulatory Orders Medication Instructions Recorded Confirmed traMADol [Ultram] 50 mg PO Q4-6H PRN 10/08/16 06/19/22 Cyclobenzaprine [Flexeril] 10 mg PO TID PRN 06/09/17 06/19/22 Gabapentin 300 mg PO DAILY 03/23/19 06/19/22 Duloxetine HCl [Cymbalta] 90 mg PO DAILY PM 11/24/20 06/19/22 Meloxicam [Mobic] 7.5 mg PO DAILY PM 11/24/20 06/19/22 Ondansetron Odt [Zofran] 4 mg TL Q6H PRN #10 tablet 08/25/21 10/26/22 Magnesium Glycinate, Mag Oxide 120 mg PO DAILY 06/19/22 06/19/22 [Magnesium Glycinate] Multivitamin 1 tab ORAL DAILY 06/19/22 06/19/22 Ondansetron Odt [Zofran] 4 mg TL Q6H PRN #10 tablet 06/19/22 Oxycodone HCl/Acetaminophen 1 each PO Q6H PRN #14 tablet 06/19/22 [Percocet 5-325 mg Tablet] Tamsulosin [Flomax] 0.4 mg PO DAILY #14 cap 06/19/22 oxyCODONE [Roxicodone] 5 mg PO TID PRN #15 tablet 05/24/23 HYDROcod/ACETAM 5/325 [[place] 5/325] 1 - 2 tablet PO Q6H PRN #14 tablet 02/10/24 Oxycodone HCl/Acetaminophen 1 each PO Q6H PRN #20 tablet 02/12/24 [Percocet 7.5-325 mg Tablet] Ondansetron Odt [Zofran] 4 mg TL Q6H PRN #10 tablet 04/14/24 Oxycodone HCl/Acetaminophen 1 - 2 each PO Q6H PRN #14 tablet 04/14/24 [Percocet 5-325 mg Tablet] - Allergies Allergies/Adverse Reactions: Allergies Allergy/AdvReac Type Severity Reaction Status Date / Time meperidine HCl * AdvReac Unknown family hx Verified 04/14/24 12:59 [From Demerol] of cardiac arrest seasonal allergies Allergy Unknown Uncoded 04/14/24 12:59 - Social History Does the pt smoke?: No Smoking Status: Never smoker Does the pt drink ETOH?: No Does the pt have substance abuse?: No - Immunizations Immunizations are current?: Yes - POLST Patient has POLST: No PD ED PE NORMAL - Vitals Vital signs reviewed: Yes - General General: Alert and oriented X 3, No acute distress, Well developed/nourished - HEENT HEENT: Atraumatic, Moist mucous membranes - Cardiac Cardiac: RRR, No murmur - Respiratory Respiratory: No respiratory distress, Clear bilaterally - Abdomen Abdomen: Normal bowel sounds, Soft, Non distended, Other (Right lower quadrant lower pelvic abdominal pain, no guarding, no other areas of abdominal pain, active bowel tones.) - Back Back: No CVA TTP, No spinal TTP - Derm Derm: Normal color, Warm and dry - Extremities Extremities: No deformity, No edema - Neuro Neuro: Alert and oriented X 3 Eye Opening: Spontaneous Motor: Obeys Commands Verbal: Oriented GCS Score: 15 - Psych Psych: Normal mood, Normal affect Results - Vitals Vitals: Vital Signs - 24 hr 04/14/24 04/14/24 04/14/24 12:52 13:22 15:03 Temperature 36.3 C L Heart Rate 108 H 91 91 Respiratory 17 19 16 Rate Blood Pressure 193/86 H 142/76 H 153/80 H O2 Saturation 100 100 100 Oxygen O2 Source Room air - Labs Labs: Laboratory Tests 04/14/24 04/14/24 04/14/24 13:11 13:11 14:32 WBC 7.2 RBC 4.81 Hgb 14.0 Hct 43.8 MCV 91.1 MCH 29.1 MCHC 32.0 RDW 14.6 Plt Count 296 MPV 9.7 Neut # (Auto) 4.0 Lymph # (Auto) 2.4 [place] # (Auto) 0.6 Eos # (Auto) 0.2 Baso # (Auto) 0.0 Absolute Nucleated RBC 0.00 Nucleated RBC % 0.0 Sodium 138 Potassium 3.6 Chloride 109 Carbon Dioxide 22 Anion Gap 7.0 BUN 14 Creatinine 0.8 Estimated GFR (MDRD) 78 L Glucose 109 H Calcium 9.0 Total Bilirubin 0.4 AST 11 ALT 10 Alkaline Phosphatase 94 Total Protein 7.4 Albumin 3.8 Globulin 3.6 Albumin/Globulin Ratio 1.1 Lipase 27 Urine Color Urine Clarity Urine pH Ur Specific [place] Urine Protein Urine Glucose (UA) Urine Ketones Urine Occult Blood Urine Nitrite Urine Bilirubin Urine Urobilinogen Ur Leukocyte Esterase Urine RBC Urine WBC Ur Squamous Epith Cells Urine Crystals Urine Bacteria Ur Microscopic Review Urine Culture Comments Urine HCG, Qual NEGATIVE 04/14/24 14:32 WBC RBC Hgb Hct MCV MCH MCHC RDW Plt Count MPV Neut # (Auto) Lymph # (Auto) [place] # (Auto) Eos # (Auto) Baso # (Auto) Absolute Nucleated RBC Nucleated RBC % Sodium Potassium Chloride Carbon Dioxide Anion Gap BUN Creatinine Estimated GFR (MDRD) Glucose Calcium Total Bilirubin AST ALT Alkaline Phosphatase Total Protein Albumin Globulin Albumin/Globulin Ratio Lipase Urine Color DARK YELLOW Urine Clarity HAZY Urine pH 6.0 Ur Specific [place] 1.020 Urine Protein TRACE Urine Glucose (UA) NEGATIVE Urine Ketones NEGATIVE Urine Occult Blood LARGE H Urine Nitrite NEGATIVE Urine Bilirubin SMALL H Urine Urobilinogen 0.2 (NORMAL) Ur Leukocyte Esterase NEGATIVE Urine RBC 11-25 H Urine WBC 4-5 Ur Squamous Epith Cells MOD Squamous H Urine Crystals 0-2 Calcium Oxalate Urine Bacteria Few Ur Microscopic Review INDICATED Urine Culture Comments NOT INDICATED Urine HCG, Qual - Rads (name of study) No standard instances Relevant Findings:: Final report received PD Medical Decision Making - ED course Complexity details: reviewed results, re-evaluated patient, considered differential, d/w patient ED course: 43-year-old female presented with right lower pelvic pain with differential including ureteral stone, ovarian cyst, ovarian torsion, UTI. Patient has already had an appendectomy.She is well-appearing here on physical exam, afebrile nontoxic. We collected lab work which is largely reassuring, she does have some blood in her urine, no other acute findings. Patient was concerned about possible ovarian cyst we did attempt ultrasound however they said ovaries were not visualized but there was no other concerning findings. After discussion for the patient, I think this likely Ureteral stone. Inguinal location and lack of signs of infection, I think we can treat supportively with NSAIDs, oral fluids, and patient has done well with Percocet in the past. She was given pain medication anti-inflammatory here, and will be discharged home, encouraged follow-up with urology if symptoms do not improve return to the ER if worsening including fever or other new concerns. 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 Departure - Departure Disposition: Home, Self Care Clinical Impression: Right sided abdominal pain Condition: Good Instructions: ED Stone Renal W Colic Prescriptions: Oxycodone HCl/Acetaminophen [Percocet 5-325 mg Tablet] 1 - 2 each PO Q6H PRN #14 tablet PRN Reason: pain Ondansetron Odt [Zofran] 4 mg TL Q6H PRN #10 tablet PRN Reason: Nausea / Vomiting Comments: [place], your labs today are stable. You do have some blood in the urine and given the location of your pain, I suspect it is likely a ureteral stone. There is no sign of urinary tract infection however and your labs are stable so we do not necessarily need to do any scanning today. I have given you a prescription for pain medication nausea medication I recommend that you follow-up with your urologist if no improvement in next week or so, return if you develop a fever or worsening symptoms. I am prescribing a short course of narcotic pain medication for you. These are potentially dangerous and addictive medications that should be used carefully. These medications may constipate you. Take an [id number] stool softener (docusate) twice daily with plenty of water while taking these medications. If you go 24 hours without a bowel movement, take [id number] miralax, per package instructions. Do not drink or drive while taking these medications. If you received narcotic or sedating medications while in the emergency department, do not drive for 24 hours. Store this medication in a safe, secure place and out of reach of children. It is a violation of federal law to give or sell this medication to another person or to use in a manner other than prescribed. The ED will not refill narcotic prescriptions, including prescriptions lost or stolen. To dispose of unwanted medications: 1. [facility][Note 3][employer] provides a drop box for medication in pill form only (no liquids) 8:00 am to 4:30 p.m. Friday-Friday in the lobby of the [facility], [address] [place] [address]. Empty pills into ziplock bag before disposal. Call [phone] for information. 2.[employer] is a free service available to all [facility] residents. Go to https://[email or web address]/[place]/ Note that many narcotic pain relievers also contain Tylenol/acetaminophen. Ple ase ensure that your total dose of acetaminophen from all sources does not exceed 3 g (3000 mg) per day. Forms: PCP List
[2024-04-14 14:42] LABS: BILIRUBIN,URINE SMALL (NEGATIVE); GLUCOSE, URINE (UA) NEGATIVE (NEGATIVE); KETONES,URINE (UA) NEGATIVE (NEGATIVE); LEUKOCYTE ESTERASE, URINE NEGATIVE (NEGATIVE); NITRITE,URINE NEGATIVE (NEGATIVE); OCCULT BLOOD,URINE LARGE (NEGATIVE); PROTEIN,URINE TRACE mg/dL (NEGATIVE); UROBILINOGEN,URINE 0.2 (NORMAL) E.U./dL (NORMAL)
[2024-04-14 14:43] LABS: HCG UR QUAL NEGATIVE
[2024-04-14 14:46] LABS: CLARITY,URINE HAZY (CLEAR)
[2024-04-14 14:53] LABS: BACTERIA,URINE Few /HPF (None Seen); CRYSTALS,URINE 0-2 Calcium Oxalate /LPF; SQUAMOUS EPITHELIAL CELL,UR MOD Squamous (<= Few)
--- NOTE | 2024-04-14 14:58 | Ultrasound Report ---
PROCEDURE: Pelvic Complete INDICATIONS: right pelvis pain, eval ovaries. prior appendectom TECHNIQUE: Real-time transabdominal scanning was performed of the pelvic organs, with image documentation. COMPARISON: CT abdomen pelvis 02/10/2024 FINDINGS: Uterus: Not visualized. Ovaries: Not visualized. Other: No free pelvic fluid. IMPRESSION: Nonvisualization of the ovaries or uterus. Reviewed by: Jeri Epstein MD on 04/14/2024 2:57 PM PDT Approved by: Jeri Epstein MD on 04/14/2024 2:57 PM PDT Station ID: [id number]
[2024-04-14] MEDS: KETOROLAC 30 MG/ML VIAL IM STA (15:19)
[2024-04-14] MEDS: HYDROmorphone 1 MG/ML CARPUJECT IM STA (15:19)
[2024-04-14] MEDS: ONDANSETRON ODT 4 MG TABLET TL STA (15:19)
[2024-04-14 15:34] VITALS: BP 135/63; O2SAT 98
== END 2024-04-14 15:27 | disposition home or self-care (01) ==
LOC: ED 12:49
DX: R10.31 Right lower quadrant pain (principal); Z79.899 Other long term (current) drug therapy
CPT/HCPCS: 36415; 76856; 80053; 81001; 81025; 83690; 85025; 96372; 99283; 99284; J1170; Q0162; 81003; 87086